=== PATIENT | female | born 1945 | race Caucasian/White ===

== ENCOUNTER → 2016-03-18 | Outpatient (CLI) | payer MEDICARE, OTHER | LOC: RAD 08:06 | PROVIDERS: ATTEND Specialist | DX: R19.01 Right upper quadrant abdominal swelling, mass and lump (principal) | CPT/HCPCS: 74250 ==

== ENCOUNTER 2016-05-30 00:45 | Emergency (ER) | payer MEDICARE, OTHER ==
--- NOTE | 2016-05-30 02:23 | ER Document Report ---
ED General - General Chief Complaint: Headache Stated Complaint: HEAD PAIN Notes: Patient is very pleasant 70 year old female who presents with complaint of a on sensation in her head. She says she got a warm and burning type sensation underneath her right forehead. She felt dizzy with it. She says she still has a slight sensation but is not is masses when it first started. She's never had this before. Patient is on blood thinners. She's not exactly sure why she is on blood thinners. Patient denies any trauma or injuries. Pain started around 11 PM. No vomiting. No fevers. No diarrhea. No focal weakness or numbness. No other complaints at this time. TRAVEL OUTSIDE OF THE [place] IN LAST 30 DAYS: No - Related Data Allergies/Adverse Reactions: No Known Allergies Allergy (Verified 01/20/16 08:24) Past Medical History - Social History Smoking Status: Never Smoker Frequency of alcohol use: None Drug Abuse: None Family History: Reviewed & Not Pertinent Patient has suicidal ideation: No Patient has homicidal ideation: No - Past Medical History Cardiac Medical History: Reports: Hx Hypertension - ON MEDS Denies: Hx Coronary Artery Disease, Hx Heart Attack Pulmonary Medical History: Denies: Hx Asthma, Hx Bronchitis, Hx COPD, Hx Pneumonia Neurological Medical History: Denies: Hx Cerebrovascular Accident, Hx Seizures Renal/ Medical History: Denies: Hx Peritoneal Dialysis GI Medical History: Reports: Hx Hepatitis - HEP B 74/REMISSION, Hx Hiatal Hernia. Denies: Hx Ulcer Musculoskeltal Medical History: Reports Hx Arthritis - RIGHT HAND AND RIGHT KNEE Infectious Medical History: Reports: Hx Hepatitis - HEP B 74/REMISSION Past Surgical History: Denies: Hx Hysterectomy, Hx Mastectomy, Hx Open Heart Surgery, Hx Pacemaker - Immunizations Hx Diphtheria, Pertussis, Tetanus Vaccination: Yes Hx Pneumococcal Vaccination: 11/20/14 Review of Systems - Review of Systems Notes: My Normal Review Basic REVIEW OF SYSTEMS: CONSTITUTIONAL : Denies fever, chills, or sweats. Denies recent illness. EENT: Denies eye, ear, throat, or mouth pain or symptoms. Denies nasal or sinus congestion. RESPIRATORY: Denies cough, cold, or chest congestion. Denies shortness of breath, difficulty breathing, or wheezing. GASTROINTESTINAL: Denies abdominal pain. Denies nausea, vomiting, or diarrhea. Denies constipation. Last BM: MUSCULOSKELETAL: Denies neck or back pain or joint pain or swelling. SKIN: Denies rash or skin lesions. NEUROLOGICAL: Denies altered mental status or loss of consciousness. Has a headache. Denies weakness or paralysis or loss of use of either side. Denies problems with gait or speech. Denies sensory or motor loss. ALL OTHER SYSTEMS REVIEWED AND NEGATIVE. Physical Exam - Vital signs Vitals: Temp Pulse Resp BP Pulse Ox 97.6 F 63 18 176/60 H 100 05/30/16 01:05 05/30/16 01:05 05/30/16 01:05 05/30/16 01:05 05/30/16 01:05 - Notes Notes: General Appearance: Well nourished, alert, cooperative, no acute distress, no obvious discomfort. Very well-appearing. Patient is actually very upbeat and laughing and happy on exam. Vitals: reviewed, See vital signs table. Head: no swelling or tenderness to the head Eyes: PERRL, EOMI, Conjuctiva clear Mouth: No decreasd moisture Neck: Supple, no neck tenderness, No thyromegaly Lungs: No wheezing, No rales, No rhonci, No accessory muscle use, good air exchange bilaterally. Heart: Normal rate, Regular rythm, No murmur, no rub Extremities: strength 5/5 in all extremities, good pulses in all extremities, no swelling or tenderness in the extremities, no edema. Skin: warm, dry, appropriate color, no rash Neuro: speech clear, oriented x 3, normal affect, responds appropriately to questions. Cranial nerves II through XII are intact. Distal sensation intact. Patient has normal gait. Normal Romberg testing. No focal neurologic deficits on exam. Course - Vital Signs Vital signs: Temp Pulse Resp BP Pulse Ox 97.6 F 63 18 176/60 H 100 05/30/16 01:05 05/30/16 01:05 05/30/16 01:05 05/30/16 01:05 05/30/16 01:05 - Transfer of Care Notes: 05/30/16 03:[address] scan makes the headache was atypical for the patient that it' s Kimon was a burning type sensation. It was not severe and pain. Her pain is actually are ready almost completely resolved. She has no neurologic deficits. CT scan was obtained within 4 hours of the onset of the headache. CT scan is negative. This no evidence of bleeding. She is fully neurologically intact and looks well and I feel safe to be discharged home. I encouraged him to return to ER she has recurrent worsening headaches or feels unwell. Patient and her agree with plan and she will be discharged home. Dictation of this chart was performed using voice recognition software; therefore, there may be some unintended grammatical errors. Discharge - Discharge Additional Instructions: HEADACHE: The physician does not feel that the headache you are experiencing has a serious underlying cause. Most headaches are due to emotional stress, with resultant muscle tension (tension headache). Occasionally, headaches are secondary to changes in the blood vessels of the scalp (vascular headache and migraine headache). Sometimes, a headache is the first symptom of another developing illness, such as a viral infection. You have no evidence of stroke, bleeding, meningitis, or other serious cause of your headache. The treatment of headaches varies with the severity and cause of the pain. Not all headaches need pain shots. In fact, there is evidence that using narcotics for headaches may make them worse in the long run. The physician will determine the therapy that's in your best interest. If you develop a fever, if the headache is different from any you've previously experienced, or if the headache progressively worsens, then call your physician at once or go to the emergency room. FOLLOW-UP CARE: If you have been referred to a physician for follow-up care, call the physician s office for an appointment as you were instructed or within the next two days. If you experience worsening or a significant change in your symptoms, notify the physician immediately or return to the Emergency Department at any time for re-evaluation. Please return to ER immediately if you have recurrent worsening headaches, any weakness or numbness, fevers, or feel unwell. Please follow-up with your doctor in 2-3 days for reevaluation. Referrals: LESLEY CASTANO MD [Primary Care Provider] - 06/01/16
[2016-05-30 03:19] VITALS: BP 143/62
== END 2016-05-30 03:19 | disposition home or self-care (01) ==
LOC: ER 00:45
DX: R51 Headache (principal); Z79.02 Long term (current) use of antithrombotics/antiplatelets; I10 Essential (primary) hypertension; Z86.19 Personal history of other infectious and parasitic diseases
CPT/HCPCS: 70450; 99284

== ENCOUNTER 2016-07-21 07:16 | Inpatient (IN) | payer MEDICARE, OTHER ==
--- NOTE | 2016-07-21 07:55 | ER Document Report ---
ED General - General Mode of Arrival: Wheelchair Information source: Relative - spouse TRAVEL OUTSIDE OF THE [place] IN LAST 30 DAYS: No - HPI Onset: This morning - Refer to HPI notes Associated symptoms: Other - confused Similar symptoms previously: No Recently seen / treated by doctor: No <ESTEFANIA BOWERS - Last Filed: 07/21/16 08:58> <FARHAT TERRY - Last Filed: 07/21/16 15:50> - General Chief Complaint: Altered Mental Status Stated Complaint: CONFUSION Time Seen by Provider: 07/21/16 07:42 Notes: Patient is a 71 year old female presenting to the emergency department with her for confusion and difficulty completing easy tasks. states the patient woke him up around 6:30 this morning and was very confused and not acting like herself. Patient had difficulty getting dressed, taking her medications, and getting into the car. states the patient was unable to figure out how to get her hand/arm inside the car when she was getting in. Patient was normal and at her baseline last night. After some difficulty the patient was able to give the time and date. Patient has trouble forming her sentences. Patient eventually is able to say she woke up around 6:00. Patient states she felt lost. Patient complains of some soreness to her head but denies any recent injury. Patient is not on blood thinners. Patient has a history of hypertension, hypercholesterolemia, and hypothyroidism. Patient takes medications for these as well as a baby ASA daily. Patient's PCP is Dr. Bolden. ( ESTEFANIA BOWERS) The patient is not a TPA candidate. She woke up with her symptoms. She has no motor deficits. She has only confusion and problems following directions. ( FARHAT TERRY) - Related Data Allergies/Adverse Reactions: No Known Allergies Allergy (Verified 01/20/16 08:24) Past Medical History - General Information source: Relative - spouse, [facility] Records - Social History Smoking Status: Never Smoker Cigarette use (# per day): No Chew tobacco use (# tins/day): No Smoking Education Provided: No Frequency of alcohol use: None Drug Abuse: None Family History: None Patient has suicidal ideation: No Patient has homicidal ideation: No - Past Medical History Cardiac Medical History: Reports: Hx Hypercholesterolemia, Hx Hypertension - ON MEDS GI Medical History: Reports: Hx Hepatitis - HEP B 74/REMISSION, Hx Hiatal Hernia Musculoskeltal Medical History: Reports Hx Arthritis - RIGHT HAND AND RIGHT KNEE Infectious Medical History: Reports: Hx Hepatitis - HEP B 74/REMISSION Past Surgical History: Reports: None - Immunizations Hx Diphtheria, Pertussis, Tetanus Vaccination: Yes Hx Pneumococcal Vaccination: 11/20/14 <ESTEFANIA BOWERS - Last Filed: 07/21/16 08:58> Review of Systems - Review of Systems Constitutional: No symptoms reported EENT: No symptoms reported Cardiovascular: No symptoms reported Respiratory: No symptoms reported Gastrointestinal: No symptoms reported Genitourinary: No symptoms reported Female Genitourinary: No symptoms reported Musculoskeletal: No symptoms reported Skin: No symptoms reported Hematologic/Lymphatic: No symptoms reported Neurological/Psychological: See HPI, Confusion, Speech impairment -: Yes All other systems reviewed and negative <ESTEFANIA BOWERS - Last Filed: 07/21/16 08:58> Physical Exam - Vital signs Interpretation: Normal <ESTEFANIA BOWERS - Last Filed: 07/21/16 08:58> <FARHAT TERRY - Last Filed: 07/21/16 15:50> - Vital signs Vitals: Temp Pulse Resp BP Pulse Ox 97.6 F 59 L 16 158/66 H 100 07/21/16 07:22 07/21/16 07:22 07/21/16 07:22 07/21/16 07:22 07/21/16 07:22 - Notes Notes: GENERAL: Alert, confused but pleasant, no acute distress. HEAD: Normocephalic and atraumatic. EYES: PERRL, Extraocular movements intact. ENT: Moist mucus membranes, tongue midline. NECK: Normal, supple, no carotid bruits. RESPIRATORY: Lungs are clear with positive air movement bilaterally, no wheezes , rhonchi, or rales. No respiratory distress. HEART: Regular rate and rhythm, no murmurs, gallops, or rubs. ABDOMINAL: Soft, non-tender, no guarding, rebound, or rigidity. BACK: Normal, non-tender. EXTREMITIES: Full range of motion to all extremities. No edema. NEUROLOGICAL: Alert, confused, oriented to time, patient has difficulty forming sentences and finding the right words to say, patient stumbles over her words as well. Patient was able to say the month and day after some difficulty. Patient also has difficulty following easy commands during the exam. Patient has inappropriate laughter consistent with frontal lobe release. PSYCHOLOGICAL: Confused. SKIN: Warm, dry. (ESTEFANIA BOWERS) Course - Laboratory Result Diagrams: 07/21/16 08:40 07/21/16 08:40 <ESTEFANIA BOWERS - Last Filed: 07/21/16 08:58> - Laboratory Result Diagrams: 07/21/16 08:40 07/21/16 08:40 - Diagnostic Test Radiology reviewed: Image reviewed, Reports reviewed - CT of the head shows stable white matter disease. MRI combo of the brain is unremarkable. - EKG Interpretation by Me EKG shows normal: Sinus rhythm, [place], Intervals, QRS Complexes, ST-T Waves Rate: Normal - 61 Rhythm: NSR Voltage: Consistant with LVH - Consults Dr. Wall Time consulted: 15:40 Consulted provider: will come to ER <FARHAT TERRY - Last Filed: 07/21/16 15:50> - Vital Signs Vital signs: Temp Pulse Resp BP Pulse Ox 97.6 F 65 22 H 143/72 H 100 07/21/16 07:22 07/21/16 13:20 07/21/16 14:12 07/21/16 14:12 07/21/16 14:12 - Laboratory Laboratory results interpreted by mt: 07/21/16 08:40 Chloride 109 H Discharge <ESTEFANIA BOWERS - Last Filed: 07/21/16 08:58> - Discharge Admitting Provider: Hospitalist Unit Admitted: Telemetry <FARHAT TERRY - Last Filed: 07/21/16 15:50> - Discharge Clinical Impression: Confusion and disorientation TIA (transient ischemic attack) Qualifiers: Transient cerebral ischemia type: unspecified Qualified Code(s): G45.9 - Transient cerebral ischemic attack, unspecified Condition: Stable Referrals: LESLEY CASTANO MD [Primary Care Provider] - Follow up as needed Scribe Attestation: 07/21/16 15:41 I personally performed the services described in the documentation, reviewed and edited the documentation which was dictated to the scribe in my presence, and it accurately records my words and actions. (FARHAT TERRY) Scribe Documentation - Scribe Written by Scribe:: Hiren Dubois, 07/21/16 8:26 acting as scribe for :: Georgina <ESTEFANIA BOWERS - Last Filed: 07/21/16 08:58>
[2016-07-21] MEDS ORDERED: ONDANSETRON HCL INJ/PF 4 MG/2 ML SDV ONE (08:35)
--- NOTE | 2016-07-21 08:39 | RADIOLOGY REPORT (SQ) ---
EXAM DESCRIPTION: CT HEAD WITHOUT COMPLETED DATE/TIME: 07/21/2016 8:22 am REASON FOR STUDY: acute confusion COMPARISON: CT brain 05/30/2016 TECHNIQUE: Axial images acquired through the brain without intravenous contrast. Images reviewed wi th bone, brain and subdural windows. Images stored on PACS. All CT scanners at this facility use dose modulation, iterative reconstruction, and/or weight based d osing when appropriate to reduce radiation dose to as low as reasonably achievable (ALARA). [facility]: Dose Right [facility]: CareDose [facility]: Dose Right [facility]: Teradose 4D [facility]: Crisp RADIATION DOSE: 64.61 mGy. LIMITATIONS: None. FINDINGS: VENTRICLES: Normal size and contour. CEREBRUM: No masses. No hemorrhage. No midline shift. Normal dee/white matter differentiation. N o evidence for acute infarction. Mild bifrontal and biparietal chronic small vessel ischemic change CEREBELLUM: No masses. No hemorrhage. No alteration of density. No evidence for acute infarction. EXTRAAXIAL SPACES: No fluid collections. No masses. ORBITS AND GLOBE: No intra- or extraconal masses. Normal contour of globe without masses. CALVARIUM: No fracture. PARANASAL SINUSES: No fluid or mucosal thickening. SOFT TISSUES: No mass or hematoma. OTHER: No other significant finding. IMPRESSION: No acute findings. White matter disease, stable. TECHNICAL DOCUMENTATION: JOB ID: [id number] Quality ID # [id number]: Final reports with documentation of one or more dose reduction techniques (e.g., Au tomated exposure control, adjustment of the mA and/or kV according to patient size, use of iterative reconstruction technique) 2010 [employer]- All Rights Reserved
[2016-07-21 08:52] LABS: ABSOLUTE EOSINOPHILS # (AUTO) 0.2 10^3/uL (0.0-0.6); ABSOLUTE LYMPHOCYTES (AUTO) 1.5 10^3/uL (0.5-4.7); ABSOLUTE MONOCYTES (AUTO) 0.3 10^3/uL (0.1-1.4); BASOPHILS % (AUTO) 0.6 % (0-2); EOSINOPHILS % (AUTO) 4.1 % (0-6); HEMATOCRIT 39.6 % (36.0-47.0); HEMOGLOBIN 13.1 g/dL (12.0-15.5); HGB HCT DIFFERENCE -0.3; LYMPHOCYTES % (AUTO) 24.6 % (13-45); MEAN CORPUSCULAR HEMOGLOBIN 28.5 pg (27.0-33.4); MEAN CORPUSCULAR HGB CONC 33.1 g/dL (32.0-36.0); MEAN CORPUSCULAR VOLUME 86 fl (80-97); MONOCYTES % (AUTO) 4.8 % (3-13); RED CELL DISTRIBUTION WIDTH 13.3 % (11.5-14.0); SEGMENTED NEUTROPHILS % (AUTO) 65.9 % (42-78); WHITE BLOOD COUNT 6.1 10^3/uL (4.0-10.5)
[2016-07-21 09:16] LABS: ALANINE AMINOTRANSFERASE 21 U/L (9-52); ALBUMIN 3.9 g/dL (3.5-5.0); ALKALINE PHOSPHATASE 76 U/L (38-126); ANION GAP 9 (5-19); ASPARTATE AMINO TRANSFERASE 22 U/L (14-36); BILIRUBIN,DIRECT 0.3 mg/dL (0.0-0.4); BILIRUBIN,TOTAL 0.7 mg/dL (0.2-1.3); BLOOD UREA NITROGEN 19 mg/dL (7-20); CARBON DIOXIDE 25 mmol/L (22-30); CHLORIDE 109 mmol/L (98-107); CREATINE KINASE 38 U/L (30-135); CREATININE RESULT 0.88 mg/dL (0.52-1.25); GLUCOSE 105 mg/dL (75-110); POTASSIUM 4.4 mmol/L (3.6-5.0); SODIUM 143.1 mmol/L (137-145); TOTAL PROTEIN 6.7 g/dL (6.3-8.2)
[2016-07-21 09:27] LABS: CREATINE KINASE MB 0.34 ng/mL (<4.55)
[2016-07-21 09:28] LABS: TROPONIN I < 0.012 ng/mL
--- NOTE | 2016-07-21 09:53 | EKG REPORT ---
SEVERITY:- BORDERLINE ECG - SINUS RHYTHM LVH BY VOLTAGE : Confirmed by: Lisbet Campos 21-Jul-2016 09:52:46
--- NOTE | 2016-07-21 09:55 | RADIOLOGY REPORT (SQ) ---
EXAM DESCRIPTION: CHEST SINGLE VIEW COMPLETED DATE/TIME: 07/21/2016 9:30 am REASON FOR STUDY: confusion COMPARISON: None. EXAM PARAMETERS: NUMBER OF VIEWS: One view. TECHNIQUE: Single frontal radiographic view of the chest acquired. RADIATION DOSE: NA LIMITATIONS: None. FINDINGS: LUNGS AND PLEURA: No opacities, masses or pneumothorax. No pleural effusion. MEDIASTINUM AND HILAR STRUCTURES: No masses. Contour normal. HEART AND VASCULAR STRUCTURES: Heart normal in size. Normal vasculature. BONES: No acute findings. HARDWARE: None in the chest. OTHER: No other significant finding. IMPRESSION: NO ACUTE RADIOGRAPHIC FINDING IN THE CHEST. TECHNICAL DOCUMENTATION: JOB ID: [id number]
[2016-07-21 09:56] LABS: AMORPHOUS SEDIMENT,URINE TRACE /HPF; APPEARANCE,URINE CLOUDY; BILIRUBIN,URINE NEGATIVE (NEGATIVE); GLUCOSE, URINE NEGATIVE (NEGATIVE); KETONES,URINE NEGATIVE (NEGATIVE); LEUKOCYTE ESTERASE,URINE NEGATIVE (NEGATIVE); NITRITE,URINE NEGATIVE (NEGATIVE); PROTEIN,URINE NEGATIVE (NEGATIVE); URINE SPECIFIC GRAVITY 1.014; UROBILINOGEN,URINE NEGATIVE mg/dL (<2.0)
[2016-07-21] MEDS ORDERED: LORAZEPAM INJ 2 MG/1 ML VIAL IV ONE (11:54)
--- NOTE | 2016-07-21 13:04 | RADIOLOGY REPORT (SQ) ---
EXAM DESCRIPTION: MRI HEAD COMBO COMPLETED DATE/TIME: 07/21/2016 12:53 pm REASON FOR STUDY: confusion COMPARISON: CT brain 07/21/2016 TECHNIQUE: Multiplanar imaging includes noncontrasted T1, T2, FLAIR, diffusion with ADC map and post gadolinium contrast T1 sequences. Images stored on PACS. CONTRAST TYPE AND DOSE: 15 mL Multihance. RENAL FUNCTION: GFR > 60. LIMITATIONS: Motion artifact on the axial and coronal postcontrast T1 weighted images FINDINGS: ANATOMY: No anomalies. Normal vascular flow voids. Pituitary fossa normal. CSF SPACES: Normal in size and contour. No hemorrhage. CEREBRUM: Sulci and gyri normal in size and contour. Spotty increased bifrontal and biparietal white matter signal on FLAIR imaging from chronic small vessel ischemic change. No evidence of hemorrhage, mass, or extraaxial fluid collection. No abnormal enhancement post contras t. POSTERIOR FOSSA: No signal alteration. No hemorrhage. No edema, masses, or mass effect. Internal luisito tory canals, cerebellopontine angles, mastoids normal. No enhancing lesions. No abnormal enhancement post contrast. DIFFUSION IMAGING: Negative for acute or subacute infarction. ORBITS: No masses. Globes normal. PARANASAL SINUSES: No fluid levels. Mucosa normal. OTHER: No other significant finding. IMPRESSION: No acute findings. Age-appropriate chronic small vessel white matter disease. TECHNICAL DOCUMENTATION: JOB ID: [id number]- All Rights Reserved
[2016-07-21] MEDS ORDERED: ASPIRIN 81 MG TABLET, CHEWABLE PO ONE (16:19)
[2016-07-21] MEDS ORDERED: ACETAMINOPHEN 325 MG TABLET PO PRN (16:20)
[2016-07-21] MEDS ORDERED: LABETALOL HCL INJ 20 MG/4 ML DISP.SYRIN IV PRN (16:20)
[2016-07-21] MEDS ORDERED: HYDRALAZINE HCL INJ/PF 20 MG/1 ML SDV IV PRN (16:42)
--- NOTE | 2016-07-21 16:43 | PDOC H&P ---
History of Present Illness Admission Date/PCP: LESLEY CASTANO MD Patient complains of: Weakness History of Present Illness: PETEY MATA is a 71 year old female with past medical history of hypertension, hypothyroidism, hypercholesterolemia presents with onset upon awakening this morning of confusion, speech difficulty, loss of coordination mainly in her right upper extremity. She is right-hand dominant. She states that she was taken off of her cholesterol medicine recently because her cholesterol was fine. She denies headache. Evaluation in the emergency department included a head CT which showed no acute process. An MRI of the brain which showed small vessel disease but no acute process. Past Medical History Cardiac Medical History: Reports: Hyperlipidema, Hypertension - ON MEDS Denies: Coronary Artery Disease, Myocardial Infarction Pulmonary Medical History: Denies: Asthma, Bronchitis, Chronic Obstructive Pulmonary Disease (COPD), Pneumonia Neurological Medical History: Denies: Seizures Endocrine Medical History: Reports: Hypothyroidism GI Medical History: Reports: Hepatitis - HEP B 74/REMISSION, Hiatal Hernia Musculoskeltal Medical History: Reports: Arthritis - RIGHT HAND AND RIGHT KNEE Hematology: Denies: Anemia, Sickle Cell Disease Infectious Medical History: Reports: Other - Patient states she had hepatitis 40 years ago Past Surgical History Past Surgical History: Reports: None Denies: Amputation, Hysterectomy, Mastectomy, Pacemaker Social History Information Source: Patient Lives with: Spouse/Significant other Smoking Status: Never Smoker Frequency of Alcohol Use: None Hx Recreational Drug Use: No Hx Prescription Drug Abuse: No - Advance Directive Resuscitation Status: Full Code Surrogate healthcare decision maker:: Family History Family History: denies: CVA Parental Family History Reviewed: Yes Children Family History Reviewed: Yes Sibling(s) Family History Reviewed.: Yes Medication/Allergy Home Medications: Aspirin [Aspirin EC] 1 tab PO DAILY 06/27/13 Atenolol [Tenormin 50 mg Tablet] 1 tab PO DAILY 06/27/13 Calcium Carbonate/Vitamin D3 [Caltrate 600 + D Tablet] 1 tab PO DAILY 06/27/13 Ferrous Sulfate [Iron] 1 tab PO DAILY 06/27/13 Levothyroxine Sodium [Synthroid] 137 mcg PO DAILY 06/27/13 Docusate Sodium [Stool Softener] 50 mg PO DAILY 01/05/16 Allergies/Adverse Reactions: No Known Allergies Allergy (Verified 01/20/16 08:24) Review of Systems Constitutional: ABSENT: chills, fever(s), headache(s), weight gain, weight loss Eyes: ABSENT: visual disturbances Ears: ABSENT: hearing changes Cardiovascular: ABSENT: chest pain, dyspnea on exertion, edema, orthropnea, palpitations Respiratory: ABSENT: cough, hemoptysis Gastrointestinal: ABSENT: abdominal pain, constipation, diarrhea, hematemesis, hematochezia, nausea, vomiting Genitourinary: ABSENT: dysuria, hematuria Musculoskeletal: ABSENT: joint swelling Integumentary: ABSENT: rash, wounds Neurological: PRESENT: abnormal speech, confusion, lack of coordination. ABSENT : abnormal gait, dizziness, focal weakness, syncope Psychiatric: ABSENT: anxiety, depression, homidical ideation, suicidal ideation Endocrine: ABSENT: cold intolerance, heat intolerance, polydipsia, polyuria Hematologic/Lymphatic: ABSENT: easy bleeding, easy bruising Physical Exam Vital Signs: Temp Pulse Resp BP Pulse Ox 97.6 F 65 22 H 143/72 H 100 07/21/16 07:22 07/21/16 13:20 07/21/16 14:12 07/21/16 14:12 07/21/16 14:12 Intake & Output 07/20/16 07/21/16 07/22/16 06:59 06:59 06:59 Weight 84.3 kg PHYSICAL EXAM: GENERAL: Appears well, no acute distress HEENT: Normocephalic, no scleral icterus, conjunctiva clear, EOEM intact, PERRLA , moist mucous membranes NECK: trachea midline, no thyromegally RESPIRATORY: Clear to auscultation, no wheezes/rhonchi CARDIAC: Regular rate and rhythm, no murmur/jorge/rub ABDOMEN: Soft, no distension, no tenderness, no guarding, normal bowel sounds, negative Tian sign RECTAL: deferred : deferred EXTREMITIES: No edema, cyanosis, clubbing MUSCULOSKELETAL: No joint swelling or deformity VASCULAR: normal peripheral pulses NEUROLOGIC: Alert, oriented to person/place/time, mild expressive aphasia, cranial nerves grossly intact, 5/5 strength in all extremities, tactile sensation intact in all extremities, dysmetria noted in both upper extremities SKIN: No rash, no wounds, no worrisome skin lesions PSYCHIATRIC: Normal mood, normal affect Results Laboratory Results: 07/21/16 08:40 07/21/16 08:40 07/21/16 07/21/16 07/21/16 08:40 08:40 09:20 WBC 6.1 RBC 4.60 Hgb 13.1 Hct 39.6 MCV 86 MCH 28.5 MCHC 33.1 RDW 13.3 Plt Count 182 Seg Neutrophils % 65.9 Lymphocytes % 24.6 Monocytes % 4.8 Eosinophils % 4.1 Basophils % 0.6 Absolute Neutrophils 4.0 Absolute Lymphocytes 1.5 Absolute Monocytes 0.3 Absolute Eosinophils 0.2 Absolute Basophils 0.0 Sodium 143.1 Potassium 4.4 Chloride 109 H Carbon Dioxide 25 Anion Gap 9 BUN 19 Creatinine 0.88 Est GFR ( Amer) > 60 Est GFR (Non-Af Amer) > 60 Glucose 105 Calcium 10.0 Total Bilirubin 0.7 AST 22 ALT 21 Alkaline Phosphatase 76 Total Protein 6.7 Albumin 3.9 Urine Color YELLOW Urine Appearance CLOUDY Urine pH 7.0 Ur Specific [place] 1.014 Urine Protein NEGATIVE Urine Glucose (UA) NEGATIVE Urine Ketones NEGATIVE Urine Blood NEGATIVE Urine Nitrite NEGATIVE Ur Leukocyte Esterase NEGATIVE Urine WBC (Auto) 1 Urine RBC (Auto) 1 07/21/16 07/21/16 08:40 08:40 Creatine Kinase 38 CK-MB (CK-2) 0.34 Troponin I < 0.012 Impressions: Head CT 07/21/16 07:56 IMPRESSION: No acute findings. White matter disease, stable. Chest X-Ray 07/21/16 08:56 IMPRESSION: NO ACUTE RADIOGRAPHIC FINDING IN THE CHEST. Head MRI 07/21/16 08:56 IMPRESSION: No acute findings. Age-appropriate chronic small vessel white matter disease. Assessment & Plan - Diagnosis (1) TIA (transient ischemic attack) Qualifiers: Transient cerebral ischemia type: unspecified Qualified Code(s): G45.9 - Transient cerebral ischemic attack, unspecified Is this a current diagnosis for this admission?: YesPlan: Patient symptoms concerning for posterior circulation event. Increase aspirin from 81-325 mg. Check lipid panel. Place patient on telemetry monitoring to rule out dysrhythmia. Consider outpatient event monitor. Check CTA of head and neck. Physical/occupational therapy evaluation. DVT prophylaxis. (2) Hypertension Is this a current diagnosis for this admission?: YesPlan: Continue atenolol 50 mg daily. As needed IV hydralazine. (3) Hypothyroid Is this a current diagnosis for this admission?: YesPlan: Synthroid. Check TSH. (4) Hypercholesterolemia Is this a current diagnosis for this admission?: YesPlan: Patient was taken off statin as an outpatient. Repeat lipid panel. Restart statin therapy if indicated. - Time Time Spent: 50 to 70 Minutes Anticipated discharge: Home Within: within 48 hours
--- NOTE | 2016-07-21 17:40 | RADIOLOGY REPORT (SQ) ---
EXAM DESCRIPTION: CTA HEAD COMPLETED DATE/TIME: 07/21/2016 5:04 pm REASON FOR STUDY: tia COMPARISON: None. TECHNIQUE: Post IV contrast scanning, thin section axial imaging through the brain to evaluate the a rterial structures. Source and MIP images are saved and reviewed on PACS. Advanced 3D imaging as volume-rendering, MIPs, SSD performed? yes All CT scanners at this facility use dose modulation, iterative reconstruction, and/or weight based d osing when appropriate to reduce radiation dose to as low as reasonably achievable (ALARA). [facility]: Dose Right [facility]: CareDose [facility]: Dose Right [facility]: Teradose 4D [facility]: [employer] CONTRAST TYPE AND DOSE: 75 mL Isovue 370 RENAL FUNCTION: Creatinine 0.88 LIMITATIONS: None. FINDINGS: [place]: The anterior, middle, posterior cerebral arteries are all patent. No ev idence of aneurysm or focal stenosis. POSTERIOR CIRCULATION: The distal vertebral arteries are patent as is the basilar artery. No aneurysm . BRAIN: No gross enhancing lesions as visualized. The superior cerebral hemispheres are not included in the field of view. BONES: Intact as visualized. SINUSES: No fluid or mucosal thickening. OTHER: No other significant finding. IMPRESSION: NO CTA EVIDENCE OF STENOSIS OR ANEURYSM OF THE [place]. TECHNICAL DOCUMENTATION: JOB ID: [id number] Quality ID # 436: Final reports with documentation of one or more dose reduction techniques (e.g., Au tomated exposure control, adjustment of the mA and/or kV according to patient size, use of iterative reconstruction technique) 2010 [employer]- All Rights Reserved
--- NOTE | 2016-07-21 17:43 | RADIOLOGY REPORT (SQ) ---
EXAM DESCRIPTION: CTA NECK COMPLETED DATE/TIME: 07/21/2016 5:05 pm REASON FOR STUDY: tia COMPARISON: None. TECHNIQUE: Axial dynamic scanning technique with dynamic contrast enhancement through the extra-craft artist nial carotid and vertebral arteries. Multiplanar reconstruction. 3-D MIPS and Volume-rendered imag es acquired at the workstation and saved to PACS. Images are reviewed in soft tissue, bone, lung w indows. All CT scanners at this facility use dose modulation, iterative reconstruction, and/or weight based d osing when appropriate to reduce radiation dose to as low as reasonably achievable (ALARA). [facility]: Dose Right [facility]: CareDose [facility]: Dose Right [facility]: Teradose 4D [facility]: [email or web address] CONTRAST TYPE AND DOSE: 75 mL Isovue 370 RENAL FUNCTION: Creatinine 0.88 LIMITATIONS: None. FINDINGS: AORT[place] ARCH: Normal three-vessel origin. Bilateral subclavian arteries are patent. No d issection. RIGHT CAROTIDS: Patent common, internal and external carotid arteries without suggestion of significa nt stenosis or irregular plaque. No dissection. RIGHT VERTEBRAL: Patent. No dissection. LEFT CAROTIDS: Patent common, internal and external carotid arteries without suggestion of significan t stenosis or irregular plaque. No dissection. LEFT VERTEBRAL: Patent. No dissection. OTHER: No other significant finding. OTHER: 3-D reconstructions confirm findings. IMPRESSION: NORMAL CTA OF THE EXTRA-CRANIAL CAROTID AND VERTEBRAL ARTERIES. COMMENT: Quality ID #[id number]: Measurements of distal internal carotid diameter were used as the denomina tor for stenosis measurement. TECHNICAL DOCUMENTATION: JOB ID: [id number] Quality ID # 436: Final reports with documentation of one or more dose reduction techniques (e.g., Au tomated exposure control, adjustment of the mA and/or kV according to patient size, use of iterative reconstruction technique) 2010 [employer]- All Rights Reserved
[2016-07-21 18:19] LABS: CHOLESTEROL 169.76 mg/dL (0-200); DIRECT LDL 78 mg/dL (<100); Direct HDL 64 mg/dL (>40); TRIGLYCERIDES 92 mg/dL (<150)
[2016-07-22] MEDS ORDERED: ONDANSETRON HCL INJ/PF 4 MG/2 ML SDV IV ONE (03:15)
[2016-07-22] MEDS ORDERED: ONDANSETRON HCL INJ/PF 4 MG/2 ML SDV ONE (03:21)
--- NOTE | 2016-07-22 04:11 | RADIOLOGY REPORT (SQ) ---
EXAM DESCRIPTION: CT HEAD WITHOUT COMPLETED DATE/TIME: 07/22/2016 3:48 am REASON FOR STUDY: headache R51 HEADACHE COMPARISON: CT head 07/21/2016. TECHNIQUE: Axial images acquired through the brain without intravenous contrast. Images reviewed wi th bone, brain and subdural windows. Images stored on PACS. All CT scanners at this facility use dose modulation, iterative reconstruction, and/or weight based d osing when appropriate to reduce radiation dose to as low as reasonably achievable (ALARA). [facility]: Dose Right [facility]: CareDose [facility]: Dose Right [facility]: Teradose 4D [facility]: [employer] RADIATION DOSE: 110.44 mGy. LIMITATIONS: Motion artifact. FINDINGS: VENTRICLES: No hydrocephalus. Acute hemorrhage in the atrium of the left lateral ventricl e. CEREBRUM: Large area of intraparenchymal hemorrhage in the left parietal, occipital and temporal lobe s measuring approximately 9.6 x 3.3 cm. There is adjacent mass effect and edema in the brain parench yma. No midline shift. Elsewhere in the brain the dee-white matter differentiation is preserved. CEREBELLUM: No hemorrhage. No alteration of density. No evidence for acute infarction. EXTRAAXIAL SPACES: No fluid collections. ORBITS AND GLOBE: Symmetrical contour of the globes. CALVARIUM: No depressed fracture. PARANASAL SINUSES: No air-fluid level. SOFT TISSUES: No hematoma. IMPRESSION: Interval development of acute large intraparenchymal hemorrhage in the left parietal, oc cipital and temporal lobes with adjacent mass effect and edema in the brain parenchyma, and intravent ricular extension of the hemorrhage into the left lateral ventricle. COMMENT: Pertinent findings on the imaging study reported as a CRITICAL RESULT to CATRACHITA LYNCH MD at03:53 hrs on 07/22/2016. Category of Critical Result: Acute intracranial hemorrhage. TECHNICAL DOCUMENTATION: JOB ID: [id number] Quality ID # [id number]: Final reports with documentation of one or more dose reduction techniques (e.g., Au tomated exposure control, adjustment of the mA and/or kV according to patient size, use of iterative reconstruction technique) 2010 [employer]- All Rights Reserved
[2016-07-22] MEDS ORDERED: PROPOFOL 100 ML IV ONE ×2 (04:39→06:13)
[2016-07-22] MEDS ORDERED: PROPOFOL INJ 200 MG/20 ML VIAL IV ONE (04:57)
--- NOTE | 2016-07-22 05:19 | PDOC TRANSFER SUMMARY ---
General Admission Date/PCP: 07/21/16 16:20 LESLEY CASTANO MD Resuscitation Status: Full Code - Transfer Diagnosis (1) Acute respiratory failure Is this a current diagnosis for this admission?: YesDiagnosis Summary: Patient intubated for airway control by BULK PIGMENT REDUCER without difficulty. No evidence of aspiration.. (2) Intracerebral hemorrhage Is this a current diagnosis for this admission?: YesDiagnosis Summary: Patient has had basically unremarkable hospital course so far, other than minor neurologic deficits. Please refer to transcribed history and physical. Please also refer to transcribed radiology reports. Basically an unremarkable workup so far for suspected TIA. According to her floor nurse, approximately 1:30 AM the morning of the second, patient began complaining of a headache. Was given Tylenol and then reportedly slept peacefully for a while. Shortly after 3 AM, she awoke with a severe headache. Stat CT scan of the brain without contrast revealed a 9.6 x 3.3 cm area of intraparenchymal hemorrhage in the left parietal, occipital, and temporal lobes. Adjacent mass- effect and edema in the brain parenchyma. No midline shift. Intraventricular extension of the hemorrhage into the left lateral ventricle. Films have been reviewed and report was discussed with the interpreting radiologist. Immediately after report was discussed with radiologist, rapid response was called and I went immediately to the patient's floor room. Patient was confused and not following commands. She was transported down to the intensive care unit. Decision was made to proceed with endotracheal intubation for airway control. This was accomplished without difficulty by BULK PIGMENT REDUCER. Just prior to intubation, Eunice Coma Scale of 11, with eyes 3, verbal 4, motor 4. NIH score of 8, with a qualitative no. Patient appeared to be moving all her extremities grossly normally, but was not following commands. Minimal right facial droop. Blood pressure 138/64. Pulse 64 and regular. Temperature 36.9. 100% saturation on room air. Accu-Chek of 87. At 4:45 AM this morning patient was discussed by phone with Dr. Rizo, on-call neurosurgeon at [facility]. Patient was discussed in detail. He feels patient should be admitted to the medical ICU at [facility], and he will see the patient in consultation. He agrees with treatment so far. Recommendation is for systolic pressure under 140. He feels patient overall has a poor prognosis. Per nursing staff, patient has been assigned a room at [facility], and we are awaiting arrival of air transport. Accepting physician Dr. Mcqueen, jukebox operator. Immediately after my telephone conversation with the above neurosurgeon, I had a jose eduardo discussion with in our intensive care unit rajani. He had been notified prior to patient being transported to the intensive care unit that patient had taken a turn for the worse, had a very worrisome CT scan, and was to be intubated. He agreed with those plans. also agrees with plans for transport to [facility]. Again , I discussed with him in layperson's terms that neurosurgeon feels has poor prognosis. He is grateful for the care and attention at our facility. She remains stable for transport. 90 minutes critical care time spent in evaluation and management of patient, including direct patient evaluation, multiple discussions with nursing staff, entering of multiple orders into the electronic health record, multiple discussions and film review with on-call radiologist, including post-intubation chest Xrays, discussions with transport center at [facility], discussion with on-call neurosurgeon at [facility], and in person discussion with patient's . (3) TIA (transient ischemic attack) Is this a current diagnosis for this admission?: Yes (4) Hypertension Is this a current diagnosis for this admission?: Yes (5) Hypothyroid Is this a current diagnosis for this admission?: Yes (6) Hypercholesterolemia Is this a current diagnosis for this admission?: Yes - Transfer Medications Home Medications: Aspirin [Aspirin EC] 1 tab PO DAILY 06/27/13 Atenolol [Tenormin 50 mg Tablet] 1 tab PO DAILY 06/27/13 Calcium Carbonate/Vitamin D3 [Caltrate 600 + D Tablet] 1 tab PO DAILY 06/27/13 Ferrous Sulfate [Iron] 1 tab PO DAILY 06/27/13 Levothyroxine Sodium [Synthroid] 137 mcg PO DAILY 06/27/13 Docusate Sodium [Colace 100 mg Capsule] 100 mg PO DAILY 07/21/16 Transfer Medications: Current Medications Acetaminophen (Tylenol 325 Mg Tablet) 650 mg PO Q4HP PRN PRN Reason: FOR PAIN OR TEMP Stop: 08/20/16 16:19 Last Admin: 07/22/16 01:27 Dose: 650 mg Aspirin (Ecotrin 325 Mg Ec Tablet) 325 mg PO DAILY KALI Stop: 08/21/16 09:59 Atenolol (Tenormin 50 Mg Tablet) 50 mg PO DAILY KALI Stop: 08/21/16 09:59 Calcium Carbonate (Os-Abad 250 Mg With Vitamin D 125 Units) 2 tab PO DAILY KALI Stop: 08/21/16 09:59 Enoxaparin Sodium (Lovenox Inj 40 Mg/0.4 Ml Disp.Syrin) 40 mg SUBCUT QAM KALI Stop: 08/21/16 07:59 Ferrous Sulfate (Feosol 325 Mg Tablet) 325 mg PO DAILY KALI Stop: 08/21/16 09:59 Hydralazine HCl (Apresoline Inj/Pf 20 Mg/1 Ml Sdv) 10 mg IV Q6HP PRN Stop: 08/20/16 16:41 Levothyroxine Sodium (Synthroid 0.112 Mg Tablet) 0.112 mg PO DAILY KLAI Stop: 08/21/16 09:59 Levothyroxine Sodium (Synthroid 0.025 Mg Tablet) 0.025 mg PO DAILY KALI Stop: 08/21/16 09:59 Patient Own Medication (Docusate Sodium [Stool Softener]) 50 mg PO DAILY KALI Stop: 08/21/16 09:59 Sodium Chloride (Saline Flush 2.5 Ml Monoject Prefil Syrin) 2.5 ml IV Q8 KALI Stop: 08/20/16 21:59 Last Admin: 07/21/16 22:18 Dose: 2.5 ml - Allergies Allergies/Adverse Reactions: No Known Allergies Allergy (Verified 01/20/16 08:24) Physical Exam Vital Signs: Temp Pulse Resp BP Pulse Ox 97.7 F 67 23 H 107/66 100 07/22/16 03:05 07/22/16 03:05 07/22/16 04:18 07/22/16 04:18 07/22/16 04:18 Intake & Output 07/21/16 07/22/16 07/23/16 00:59 00:59 00:59 Output Total 600 Balance -600 Weight 84.2 kg Results Laboratory Results: 07/21/16 07/21/16 07/21/16 16:25 16:25 18:17 Magnesium Cancelled 2.1 Triglycerides 92 Cholesterol 169.76 LDL Cholesterol Direct 78 VLDL Cholesterol 18.0 HDL Cholesterol 64 Vitamin B12 320.0 TSH 0.38 L Impressions: Head CTA 07/21/16 00:00 IMPRESSION: NO CTA EVIDENCE OF STENOSIS OR ANEURYSM OF THE [place]. Neck CTA 07/21/16 00:00 IMPRESSION: NORMAL CTA OF THE EXTRA-CRANIAL CAROTID AND VERTEBRAL ARTERIES. Chest X-Ray 07/21/16 08:56 IMPRESSION: NO ACUTE RADIOGRAPHIC FINDING IN THE CHEST. Head MRI 07/21/16 08:56 IMPRESSION: No acute findings. Age-appropriate chronic small vessel white matter disease. Head CT 07/22/16 00:00 IMPRESSION: Interval development of acute large intraparenchymal hemorrhage in the left parietal, occipital and temporal lobes with adjacent mass effect and edema in the brain parenchyma, and intraventricular extension of the hemorrhage into the left lateral ventricle.
--- NOTE | 2016-07-22 05:35 | RADIOLOGY REPORT (SQ) ---
EXAM DESCRIPTION: CHEST SINGLE VIEW COMPLETED DATE/TIME: 07/22/2016 5:20 am REASON FOR STUDY: INTUBATION COMPARISON: Chest x-ray 07/21/2016 EXAM PARAMETERS: NUMBER OF VIEWS: One view TECHNIQUE: Single frontal radiograph of the chest. RADIATION DOSE: N/A LIMITATIONS: None. FINDINGS: TEMPORARY SUPPORT DEVICES:The endotracheal tube has the tip approximately 1.8 cm above the beck. NG tube courses below the left josy-diaphragm in to the stomach. LUNGS AND PLEURA: No consolidation, pleural effusion or pneumothorax. MEDIASTINUM AND HILAR STRUCTURES: No masses. Contour normal. HEART AND VASCULAR STRUCTURES: Heart size normal. No overt vascular congestion. BONES: No acute findings. IMPRESSION: No acute radiographic finding in the chest. Low lying endotracheal tube, retraction by 1-2 cm recommended. RECOMMENDATIONS: Retraction of the endotracheal tube. TECHNICAL DOCUMENTATION: JOB ID: [id number] 2010 [employer]- All Rights Reserved
[2016-07-22 05:44] LABS: ABSOLUTE LYMPHOCYTES (AUTO) 1.4 10^3/uL (0.5-4.7); ABSOLUTE MONOCYTES (AUTO) 0.4 10^3/uL (0.1-1.4); ABSOLUTE NEUT (AUTO) 6.7 10^3/uL (1.7-8.2); BASOPHILS % (AUTO) 0.4 % (0-2); EOSINOPHILS % (AUTO) 0.5 % (0-6); HEMATOCRIT 36.6 % (36.0-47.0); HEMOGLOBIN 12.3 g/dL (12.0-15.5); HGB HCT DIFFERENCE 0.3; LYMPHOCYTES % (AUTO) 15.9 % (13-45); MEAN CORPUSCULAR HGB CONC 33.6 g/dL (32.0-36.0); MEAN CORPUSCULAR VOLUME 86 fl (80-97); MONOCYTES % (AUTO) 4.5 % (3-13); RED BLOOD COUNT 4.25 10^6/uL (3.72-5.28); RED CELL DISTRIBUTION WIDTH 13.1 % (11.5-14.0); SEGMENTED NEUTROPHILS % (AUTO) 78.7 % (42-78); WHITE BLOOD COUNT 8.5 10^3/uL (4.0-10.5)
[2016-07-22 05:47] LABS: ANION GAP 10 (5-19); BLOOD UREA NITROGEN 15 mg/dL (7-20); CALCIUM 9.7 mg/dL (8.4-10.2); CARBON DIOXIDE 22 mmol/L (22-30); CHLORIDE 109 mmol/L (98-107); CREATININE RESULT 0.82 mg/dL (0.52-1.25); GLUCOSE 115 mg/dL (75-110); POTASSIUM 4.2 mmol/L (3.6-5.0); SODIUM 140.9 mmol/L (137-145)
[2016-07-22 05:50] LABS: PARTIAL THROMBOPLASTIN TIME 29.7 SEC (23.5-35.8); PROTHROMBIN TIME 13.8 SEC (11.4-15.4)
[2016-07-22 06:18] LABS: ARTERIAL BLOOD BASE EXCESS -3.6 mmol/L; ARTERIAL BLOOD O2 SATURATION 94.4 % (94-98)
--- NOTE | 2016-07-22 06:33 | RADIOLOGY REPORT (SQ) ---
EXAM DESCRIPTION: CHEST SINGLE VIEW COMPLETED DATE/TIME: 07/22/2016 6:21 am REASON FOR STUDY: intubated COMPARISON: Chest x-ray 07/22/2016 at 05:10 hours EXAM PARAMETERS: NUMBER OF VIEWS: One view TECHNIQUE: Single frontal portable supine radiograph of the chest on 07/22/2016 at 06:04 hours. RADIATION DOSE: N/A LIMITATIONS: None. FINDINGS: TEMPORARY SUPPORT DEVICES:The endotracheal tube has the tip approximately 3 cm above the c obed. NG tube courses below the left josy-diaphragm in to the stomach. LUNGS AND PLEURA: No consolidation, pleural effusion or pneumothorax. MEDIASTINUM AND HILAR STRUCTURES: No masses. Contour normal. HEART AND VASCULAR STRUCTURES: Heart size normal. No evidence for failure. BONES: No acute findings. IMPRESSION: No acute radiographic finding in the chest. Support devices in expected locations. TECHNICAL DOCUMENTATION: JOB ID: [id number] 2010 [employer]- All Rights Reserved
[2016-07-22 06:57] VITALS: BP 120/52
[2016-07-22] MEDS ORDERED: PROPOFOL 100 ML IV PRN (07:14)
[2016-07-22] MEDS ORDERED: ENOXAPARIN SODIUM INJ 40 MG/0.4 ML DISP.SYRIN SUBCUT SCH (08:00)
[2016-07-22] MEDS ORDERED: ASPIRIN 325 MG TABLET, ENT COATED PO SCH (10:00)
[2016-07-22] MEDS ORDERED: (PENDING PHARMACY ID) (Levothyroxine Sodium [Synthroid] 137 MCG) PO SCH (10:00)
[2016-07-22] MEDS ORDERED: CALCIUM CARBONATE 250 MG/VITAMIN D3 125 UNIT TABLET PO SCH ×2 (10:00)
[2016-07-22] MEDS ORDERED: FERROUS SULFATE 325 MG TABLET PO SCH (10:00)
[2016-07-22] MEDS ORDERED: (PENDING PHARMACY ID) (Calcium Carbonate/Vitamin D3 [Caltrate 600 Plus D3 Tablet] 1 TAB) PO SCH (10:00)
[2016-07-22] MEDS ORDERED: LEVOTHYROXINE SODIUM 0.112 MG TABLET PO SCH (10:00)
[2016-07-22] MEDS ORDERED: ATENOLOL 50 MG TABLET PO SCH (10:00)
[2016-07-22] MEDS ORDERED: LEVOTHYROXINE SODIUM 0.025 MG TABLET PO SCH (10:00)
[2016-07-22] MEDS ORDERED: DOCUSATE SODIUM 50 MG PO SCH (10:00)
[2016-07-22] MEDS ORDERED: SUCCINYLCHOLINE CHLORIDE INJ 200 MG/10 ML VIAL ONE (13:25)
== END 2016-07-22 06:28 | disposition short-term general hospital (02) | DRG 64 ==
LOC: ER 07:16 → OBSVTOIN 16:20 → INTOOBSV 16:20 → EH 16:20 → UNDOADMIN 16:34 → 3N 19:47 → ICU 07-22 04:08
PROC: 5A1935Z Respiratory Ventilation, Less than 24 Consecutive Hours (ICD-10-PCS; principal; 2016-07-22)
PROC: 0BH17EZ Insertion of Endotracheal Airway into Trachea, Via Natural or Artificial Opening (ICD-10-PCS; 2016-07-22)
DX: I61.1 Nontraumatic intracerebral hemorrhage in hemisphere, cortical (principal); J96.01 Acute respiratory failure with hypoxia; B19.10 Unspecified viral hepatitis B without hepatic coma; R47.01 Aphasia; R40.2423 Glasgow coma scale score 9-12, at hospital admission; I10 Essential (primary) hypertension; E03.9 Hypothyroidism, unspecified; E78.00 Pure hypercholesterolemia, unspecified; E78.5 Hyperlipidemia, unspecified; M19.041 Primary osteoarthritis, right hand; M17.11 Unilateral primary osteoarthritis, right knee; Z79.82 Long term (current) use of aspirin; Z79.899 Other long term (current) drug therapy
CPT/HCPCS: 31500; 36415; 70450; 70496; 70498; 70553; 71010; 80048; 80053; 80061; 81001; 82550; 82553; 82607; 82803; 82962; 83735; 84443; 84484; 85025; 85610; 85730; 93005; 93010; 94002; 96374; 96375; 99285; A9577; G0378; J0330; J2060; J2405; J2704; J3490

== ENCOUNTER 2016-08-19 23:06 | Emergency (ER) | payer MEDICARE, OTHER ==
[2016-08-19] MEDS ORDERED: NORMAL SALINE 1000 ML 1,000 ML IV ONE (23:53)
--- NOTE | 2016-08-19 23:56 | ER Document Report ---
ED General - General Chief Complaint: Syncope Stated Complaint: WEAKNESS/NAUSEA/VOMITING Time Seen by Provider: 08/19/16 23:40 Cannot obtain history due to: Mentally challenged Notes: Patient is a 71-year-old female who presents with an episode of syncope and multiple episodes of vomiting. Patient was just discharged from [facility] rehab after having a left-sided temporal parietal intracranial hemorrhage. History is limited secondary to patient's expressive aphasia and dysarthria but her states that tonight they were walking back to the bedroom and patient apparently became increasingly weak in the knees, stopped talking to him and he gently set her on the bed. He states that it appeared as though the patient lost consciousness and became completely unresponsive for 10-15 minutes. After this episode she had 2 episodes of nonbilious vomiting but was awake, talking and at her normal. He did not witness any tonic-clonic activity. The only been home several hours after being discharged from [facility]. Patient at time of assessment denies any significant headache although apparently complained of a mild headache earlier. She denies any chest pain or shortness of breath. History is otherwise limited. TRAVEL OUTSIDE OF THE [place] IN LAST 30 DAYS: No - Related Data Allergies/Adverse Reactions: No Known Allergies Allergy (Verified 01/20/16 08:24) Past Medical History - General Information source: Patient, Relative - Social History Smoking Status: Never Smoker Frequency of alcohol use: None Drug Abuse: None Lives with: Spouse/Significant other Family History: Reviewed & Not Pertinent. denies: CVA - Past Medical History Cardiac Medical History: Reports: Hx Hypercholesterolemia, Hx Hypertension - ON MEDS Denies: Hx Coronary Artery Disease, Hx Heart Attack Pulmonary Medical History: Denies: Hx Asthma, Hx Bronchitis, Hx COPD, Hx Pneumonia Neurological Medical History: Denies: Hx Cerebrovascular Accident, Hx Seizures Endocrine Medical History: Reports: Hx Hypothyroidism Renal/ Medical History: Denies: Hx Peritoneal Dialysis GI Medical History: Reports: Hx Hepatitis - HEP B 74/REMISSION, Hx Hiatal Hernia. Denies: Hx Ulcer Musculoskeltal Medical History: Reports Hx Arthritis - RIGHT HAND AND RIGHT KNEE Infectious Medical History: Reports: Hx Hepatitis - HEP B 74/REMISSION Past Surgical History: Denies: Hx Hysterectomy, Hx Mastectomy, Hx Open Heart Surgery, Hx Pacemaker - Immunizations Hx Diphtheria, Pertussis, Tetanus Vaccination: Yes Hx Pneumococcal Vaccination: 11/20/14 Review of Systems - Review of Systems Notes: Constitutional: Negative for fever. HENT: Negative for sore throat. Eyes: Negative for visual changes. Cardiovascular: Negative for chest pain. Positive for syncope Respiratory: Negative for shortness of breath. Gastrointestinal: Negative for abdominal pain, vomiting or diarrhea. Genitourinary: Negative for dysuria. Musculoskeletal: Negative for back pain. Skin: Negative for rash. Neurological: Negative for headaches, weakness or numbness. 10 point ROS negative except as marked above and in HPI. Physical Exam - Vital signs Vitals: Temp Resp BP Pulse Ox 98.0 F 20 114/53 L 98 08/19/16 23:32 08/19/16 23:32 08/19/16 23:32 08/19/16 23:32 Interpretation: Normal Notes: PHYSICAL EXAMINATION: GENERAL: Appears somewhat lethargic but wakes easily HEAD: Atraumatic, normocephalic. EYES: Pupils equal round and reactive to light, extraocular movements intact, sclera anicteric, conjunctiva are normal. ENT: nares patent, oropharynx clear without exudates. Moderately dry mucous membranes. NECK: Normal range of motion, supple without lymphadenopathy LUNGS: Breath sounds clear to auscultation bilaterally and equal. No wheezes rales or rhonchi. HEART: Regular rate and rhythm without murmurs ABDOMEN: Soft, nontender, normoactive bowel sounds. No guarding, no rebound. No masses appreciated. EXTREMITIES: no pitting or edema. No cyanosis. NEUROLOGICAL: No focal neurological deficits. Moderate expressive aphasia. Slight dysarthria. Strength is 5 out of 5 in the bilateral upper and lower extremities both distally and proximally PSYCH: Oriented to person and place but not month. SKIN: Warm, Dry, normal turgor, no rashes or lesions noted. Course - Re-evaluation Re-evalutation: 08/19/16 23:55 Presentation of syncope of unclear etiology. Patient normotensive, alert, without focal neurologic deficits at time of arrival. Denies syncope was during exertion. No preceding symptoms of palpitations, chest pain, or shortness of breath. 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 Patient is at her baseline per at time of arrival. EKG is without evidence of HCOM, right heart strain , ST changes to suggest ischemia, prolong QTc, delta wave, epsilon wave, or Brugada syndrome. Patient denies any symptoms to suggest an acute PE, GA, TAD, SAH, seizure, or acute GI bleed as the etiology of their syncope today. However , given recent intracranial hemorrhage will obtain a repeat CT scan to exclude an acute bleed at the etiology for today's episode of syncope. Will also obtain basic laboratories. These are unremarkable likely plan for discharge home 08/20/16 01:56 The radiologist contacted me and stated that he is concerned that there may be an acute hemorrhagic component to the CT scan relative to the CT from the second of this month. I contacted [facility] and spoke with the neurologist sanitation technician who stated that my radiologist need to speak to the radiologist at [facility] to better clarify whether or not this is an acute bleed. This conversation is ongoing at this time. The remainder patient's laboratories are unremarkable. She remains clinically unchanged from before, overall well in appearance and in no acute distress. She remains without any new neurologic deficit. 08/20/16 03:19 Dr. Sims our radiologist has spoken at length with the radiologist Dr. Parkinson at [facility] who reports that the CT scan today actually appears much improved from 07/31. Patient remained at her baseline. There is no indication for transfer at this time given that the CT today is unchanged actually improved from prior. I discussed the results with the patient and her at the bedside. At this time will discharge with return precautions and follow-up recommendations. Verbal discharge instructions given a the bedside and opportunity for questions given. Medication warnings reviewed. Patient is in agreement with this plan and has verbalized understanding of return precautions and the need for primary care follow-up in the next 24-72 hours. - Vital Signs Vital signs: Temp Pulse Resp BP Pulse Ox 98.0 F 16 112/56 L 99 08/19/16 23:32 08/20/16 03:01 08/20/16 03:00 08/20/16 03:01 - Laboratory Result Diagrams: 08/20/16 00:38 08/20/16 00:38 Laboratory results interpreted by me: 08/20/16 08/20/16 00:38 00:38 Hgb 11.9 L RDW 14.7 H Chloride 109 H Glucose 111 H - Diagnostic Test Radiology reviewed: Image reviewed, Reports reviewed - EKG Interpretation by Me Additional EKG results interpreted by me: 08/20/16 03:20 Normal sinus rhythm. Rate 61. No ST elevations or depressions. QTC is 440. Critical Care Note - Critical Care Note Total time excluding time spent on procedures (mins): 36 Comments: Critical care time spent obtaining history from patient or surrogate, discussions with consultants, development of treatment plan with patient or surrogate, evaluation of patient's response to treatment, examination of patient , ordering and performing treatments and interventions, ordering and review of laboratory studies, re-evaluation of patient's condition, ordering and review of radiographic studies and review of old charts Discharge - Discharge Clinical Impression: Syncope Qualifiers: Syncope type: unspecified Qualified Code(s): R55 - Syncope and collapse Vomiting Qualifiers: Vomiting type: unspecified Vomiting Intractability: non-intractable Nausea presence: with nausea Qualified Code(s): R11.2 - Nausea with vomiting, unspecified Condition: Good Disposition: HOME, SELF-CARE Additional Instructions: You were seen today after an episode of passing out. Your EKG here is normal. At this time, we do not feel that your episode of passing out was from any life- threatening cause. Please drink plenty of fluids over the next several days. Return to emergency department if you have any further episodes of syncope, headache, weakness, numbness, chest pain, or shortness of breath. Please follow up closely with your primary care physician. Referrals: LESLEY CASTANO MD [Primary Care Provider] - Follow up as needed
[2016-08-20 00:46] LABS: ABSOLUTE EOSINOPHILS # (AUTO) 0.1 10^3/uL (0.0-0.6); ABSOLUTE LYMPHOCYTES (AUTO) 1.4 10^3/uL (0.5-4.7); ABSOLUTE MONOCYTES (AUTO) 0.5 10^3/uL (0.1-1.4); ABSOLUTE NEUT (AUTO) 4.2 10^3/uL (1.7-8.2); BASOPHILS % (AUTO) 0.5 % (0-2); EOSINOPHILS % (AUTO) 2.1 % (0-6); HEMATOCRIT 36.1 % (36.0-47.0); HEMOGLOBIN 11.9 g/dL (12.0-15.5); HGB HCT DIFFERENCE -0.4; LYMPHOCYTES % (AUTO) 21.9 % (13-45); MEAN CORPUSCULAR HEMOGLOBIN 28.4 pg (27.0-33.4); MEAN CORPUSCULAR HGB CONC 32.8 g/dL (32.0-36.0); MEAN CORPUSCULAR VOLUME 86 fl (80-97); MONOCYTES % (AUTO) 8.3 % (3-13); RED BLOOD COUNT 4.18 10^6/uL (3.72-5.28); RED CELL DISTRIBUTION WIDTH 14.7 % (11.5-14.0); SEGMENTED NEUTROPHILS % (AUTO) 67.2 % (42-78); WHITE BLOOD COUNT 6.2 10^3/uL (4.0-10.5)
[2016-08-20 01:12] LABS: ANION GAP 9 (5-19); BLOOD UREA NITROGEN 11 mg/dL (7-20); CALCIUM 10.1 mg/dL (8.4-10.2); CARBON DIOXIDE 26 mmol/L (22-30); CHLORIDE 109 mmol/L (98-107); CREATININE RESULT 0.73 mg/dL (0.52-1.25); GLUCOSE 111 mg/dL (75-110); POTASSIUM 4.2 mmol/L (3.6-5.0); SODIUM 143.8 mmol/L (137-145)
--- NOTE | 2016-08-20 01:17 | RADIOLOGY REPORT (SQ) ---
EXAM DESCRIPTION: CT HEAD WITHOUT COMPLETED DATE/TIME: 08/20/2016 12:46 am REASON FOR STUDY: acute bleed? COMPARISON: 07/22/2016. TECHNIQUE: Axial images acquired through the brain without intravenous contrast. Images reviewed wi th bone, brain and subdural windows. Images stored on PACS. All CT scanners at this facility use dose modulation, iterative reconstruction, and/or weight based d osing when appropriate to reduce radiation dose to as low as reasonably achievable (ALARA). [facility]: Dose Right [facility]: CareDose [facility]: Dose Right [facility]: Teradose 4D [facility]: [employer] RADIATION DOSE: Up-to-date CT equipment and radiation dose reduction techniques were employed. CTDIv ol: 64.6 mGy. DLP: 1421 mGy-cm. mGy. LIMITATIONS: None. FINDINGS: VENTRICLES: Normal size and contour. CEREBRUM: Intraparenchymal hemorrhage with predominantly vasogenic edema of the left posterior pariet al lobe extending into left temporal lobe and left occipital lobe, similar pattern with decreased hem orrhagic component as compared with prior exam from 1 month ago. Mild cerebral volume loss. CEREBELLUM: No masses. No hemorrhage. No alteration of density. No evidence for acute infarction. EXTRAAXIAL SPACES: No fluid collections. No masses. ORBITS AND GLOBE: No intra- or extraconal masses. Normal contour of globe without masses. CALVARIUM: No fracture. PARANASAL SINUSES: No fluid or mucosal thickening. SOFT TISSUES: No mass or hematoma. OTHER: No other significant finding. 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 Cannot exclud e underlying neoplastic process. Consider correlation with contrast MRI. COMMENT: This report was called to SEAN GARCIA MD at01:04 on 08/20/2016. TECHNICAL DOCUMENTATION: JOB ID: [id number] Quality ID # [id number]: Final reports with documentation of one or more dose reduction techniques (e.g., Au tomated exposure control, adjustment of the mA and/or kV according to patient size, use of iterative reconstruction technique) 2010 [employer]- All Rights Reserved
[2016-08-20 03:58] VITALS: BP 123/70
--- NOTE | 2016-08-20 13:41 | EKG REPORT ---
SEVERITY:- NORMAL ECG - SINUS RHYTHM : Confirmed by: Lisbet Campos 20-Aug-2016 13:40:25
== END 2016-08-20 03:40 | disposition home or self-care (01) ==
LOC: ER 23:06
DX: R55 Syncope and collapse (principal); R11.2 Nausea with vomiting, unspecified; I69.120 Aphasia following nontraumatic intracerebral hemorrhage; I69.122 Dysarthria following nontraumatic intracerebral hemorrhage; I10 Essential (primary) hypertension
CPT/HCPCS: 93005; 99291; 96360; 36415; 85025; 80048; 84484; 70450; 93010; J7030

== ENCOUNTER → 2017-01-25 | Outpatient (CLI) | payer MEDICARE, OTHER ==
--- NOTE | 2017-01-25 13:06 | WOMENS IMAGING REPORT ---
EXAM DESCRIPTION: 3D SCREENING MAMMO BILAT COMPLETED DATE/TIME: 01/25/2017 9:27 am REASON FOR STUDY: SCREENING MAMMO COMPARISON: 01/22/2016 and 01/20/2015. TECHNIQUE: Standard craniocaudal and mediolateral oblique views of each breast recorded using digita l acquisition and breast tomosynthesis. LIMITATIONS: None. FINDINGS: No masses, calcifications or architectural distortion. No areas of suspicion. Read with the assistance of CAD. .[facility] - R2 [employer] Version 1.3 .[facility] Imaging - R2 C[employer] Version 1.3 .[facility] Imaging - R2 C[employer] Version 2.4 .[facility] [place] - R2 Cenova Version 2.4 .[facility] - R2 [employer] Version 9.2 IMPRESSION: NORMAL MAMMOGRAM. BIRADS 1. BREAST DENSITY: b. There are scattered areas of fibroglandular density. BIRAD: 1 NEGATIVE RECOMMENDATION: ROUTINE SCREENING COMMENT: The patient has been notified of the results by letter per MQSA requirements. Additional no tification policies are in place for contacting patient with suspicious or incomplete findings. Quality ID #[id number]: The [employer] recommends an annual screening mammogram for women aged 40 years or over. This facility utilizes a reminder system to ensure that all patients receive reminder letters, and/or direct phone calls for appointments. This includes reminders for routine scr eening mammograms, diagnostic mammograms, or other Breast Imaging Interventions when appropriate. Th is patient will be placed in the appropriate reminder system. The [employer] (ACR) has developed recommendations for screening MRI of the breast s in certain patient populations, to be used in conjunction with mammography. Breast MRI surveillanc e may be appropriate for women with more than 20% lifetime risk of developing breast cancer as deter mined by genetic testing, significant family history of the disease, or history of mantle radiation f or Hodgkins Disease. ACR Practice Guidelines 2008. DBT Technology DBT is a type of tomographic mammography. With conventional mammography, overlapping breast tissue ma y make lesions difficult to detect, even with good compression. DBT uses an x-ray tube that rotates a round the breast, taking images at different angles. These images are then combined to create thin sl ices of the breast that the radiologist can view as a 3D reconstruction. The [employer] unit can perform full-field digital mammograms (2D imaging); or DBT (3D imaging); or both, in a combination mode that quickly performs both the mammogram and the tomosynthesis scan while the breast is still compressed. PQRS 6045F: Fluoroscopic imaging is not utilized for breast tomosynthesis. TECHNICAL DOCUMENTATION: FINDING NUMBER: (1) ASSESSMENT: (1) JOB ID: [id number] [employer]- All Rights Reserved
== END ==
LOC: WI 09:07
PROVIDERS: ATTEND Physician Assistant
DX: Z12.31 Encounter for screening mammogram for malignant neoplasm of breast (principal)
CPT/HCPCS: 77063; G0202; 77067

== ENCOUNTER 2017-05-29 12:13 | Inpatient (IN) | payer MEDICARE, OTHER ==
[2017-05-29 12:53] LABS: HEMATOCRIT 38.5 % (36.0-47.0); HEMOGLOBIN 12.7 g/dL (12.0-15.5); MEAN CORPUSCULAR HEMOGLOBIN 28.2 pg (27.0-33.4); MEAN CORPUSCULAR VOLUME 86 fl (80-97); PLATELET COUNT 273 10^3/uL (150-450); RED CELL DISTRIBUTION WIDTH 14.1 % (11.5-14.0); WHITE BLOOD COUNT 16.2 10^3/uL (4.0-10.5)
--- NOTE | 2017-05-29 13:14 | ER Document Report ---
ED General - General Chief Complaint: General Weakness Stated Complaint: WEAKNESS Time Seen by Provider: 05/29/17 12:30 Mode of Arrival: Medic Information source: Patient, Relative TRAVEL OUTSIDE OF THE [place] IN LAST 30 DAYS: No - HPI Patient complains to provider of: Confusion Onset: This morning Onset/Duration: Gradual Quality of pain: No pain Notes: Patient is a 71-year-old female who was brought to the emergency room by EMS secondary to confusion that has been noted this morning, she has had generalized weakness over the last 2 days as well has not been getting out of bed and sleeping an increased amount, has been noted her to be "incoherent", today, apparently she attempted to speak on the phone to her sister and was not making any sense, has been trying to walk her out to the car and she "collapsed ", has been caught her so she did not fall and injure anything, he reports a history of intracranial bleed in July of last year with similar symptoms, she has not been eating or drinking very much and has been complaining of nausea as well, knows of no fever, patient denies any pain at time of evaluation, however she does appear to be pleasantly confused - Related Data Allergies/Adverse Reactions: No Known Allergies Allergy (Verified 01/20/16 08:24) Past Medical History - General Information source: Patient - Social History Smoking Status: Unknown if Ever Smoked Family History: Reviewed & Not Pertinent. 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 Denies: Hx Ulcer Musculoskeltal Medical History: Reports Hx Arthritis - RIGHT HAND AND RIGHT KNEE Infectious Medical History: Reports: Hx Hepatitis - HEP B 74/REMISSION Past Surgical History: Denies: Hx Hysterectomy, Hx Mastectomy, Hx Open Heart Surgery, Hx Pacemaker - Immunizations Hx Diphtheria, Pertussis, Tetanus Vaccination: Yes Hx Pneumococcal Vaccination: 11/20/14 Review of Systems - Review of Systems Constitutional: Chills, Malaise, Weakness EENT: No symptoms reported Cardiovascular: No symptoms reported Respiratory: No symptoms reported Gastrointestinal: Nausea Genitourinary: No symptoms reported Female Genitourinary: No symptoms reported Musculoskeletal: No symptoms reported Skin: No symptoms reported Hematologic/Lymphatic: No symptoms reported Neurological/Psychological: Weakness -: Yes All other systems reviewed and negative Physical Exam - Vital signs Interpretation: Normal - General General appearance: Alert In distress: None - HEENT Head: Normocephalic, Atraumatic Eyes: Normal Conjunctiva: Normal Extraocular movements intact: Yes Eyelashes: Normal Pupils: PERRL Mucous membranes: Dry Pharynx: Normal Neck: Normal - Respiratory Respiratory status: No respiratory distress Chest status: Nontender Breath sounds: Normal Chest palpation: Normal - Cardiovascular Rhythm: Regular Heart sounds: Normal auscultation Murmur: No - Abdominal Inspection: Normal Distension: No distension Bowel sounds: Normal Tenderness: Nontender Organomegaly: No organomegaly - Back Back: Normal, Nontender - Extremities General upper extremity: Normal inspection, Nontender, Normal color, Normal ROM , Normal temperature General lower extremity: Normal inspection, Nontender, Normal color, Normal ROM , Normal temperature. No: Emily's sign - Neurological Neuro grossly intact: Yes Cognition: Normal, Confused Orientation: Disoriented to time, Disoriented to events [place] Coma Scale Eye Opening: Spontaneous [place] Coma Scale Verbal: Confused [place] Coma Scale Motor: Obeys Commands [place] Coma Scale Total: 14 Speech: Expressive aphasia - mild Motor strength normal: LUE, RUE, LLE, RLE Sensory: Normal - Psychological Associated symptoms: Normal affect, Normal mood - Skin Skin Temperature: Warm Skin Moisture: Dry Skin Color: Pale Course - Re-evaluation Re-evalutation: 05/29/17 15:13 Lab and imaging findings were discussed with patient and family at bedside, although things are unremarkable at this point in time family did express concern that the last time patient presented like this was in July 2016, she was admitted to this facility and in the middle of the night developed an intraparenchymal bleed requiring transfer to tertiary care center, patient symptoms earlier this morning sound as though they are a likely TIA, and reports she has improved significantly since arriving in the emergency department, she still is somewhat confused and oriented to person only, therefore patient was discussed with the hospitalist service who agrees to admit for further evaluation and treatment, patient discussed with LILY Fang - Laboratory Result Diagrams: 05/29/17 12:38 05/29/17 12:38 Laboratory results interpreted by me: 05/29/17 05/29/17 05/29/17 12:38 12:38 13:00 WBC 16.2 H RDW 14.1 H Seg Neuts % (Manual) 96 H Lymphocytes % (Manual) 2 L Monocytes % (Manual) 2 L Abs Neuts (Manual) 15.6 H Abs Lymphs (Manual) 0.3 L BUN 21 H Glucose 149 H Direct Bilirubin 0.6 H AST 77 H Alkaline Phosphatase 128 H Albumin 3.2 L Urine Bilirubin SMALL H Urine Urobilinogen 2.0 H - Diagnostic Test Radiology reviewed: Image reviewed, Reports reviewed - EKG Interpretation by Me EKG shows normal: Sinus rhythm Rate: Normal Rhythm: NSR Discharge - Discharge Clinical Impression: TIA (transient ischemic attack) Qualifiers: Transient cerebral ischemia type: unspecified Qualified Code(s): G45.9 - Transient cerebral ischemic attack, unspecified Condition: Fair Disposition: ADMITTED OBSERVATION Admitting Provider: Hospitalist Unit Admitted: Telemetry
[2017-05-29 13:19] LABS: ALANINE AMINOTRANSFERASE 24 U/L (9-52); ALBUMIN 3.2 g/dL (3.5-5.0); ALKALINE PHOSPHATASE 128 U/L (38-126); ANION GAP 11 (5-19); ASPARTATE AMINO TRANSFERASE 77 U/L (14-36); BILIRUBIN,DIRECT 0.6 mg/dL (0.0-0.4); BILIRUBIN,TOTAL 1.1 mg/dL (0.2-1.3); BLOOD UREA NITROGEN 21 mg/dL (7-20); CALCIUM 9.6 mg/dL (8.4-10.2); CARBON DIOXIDE 28 mmol/L (22-30); CHLORIDE 105 mmol/L (98-107); GLUCOSE 149 mg/dL (75-110); SODIUM 143.5 mmol/L (137-145); TOTAL PROTEIN 6.3 g/dL (6.3-8.2)
--- NOTE | 2017-05-29 13:33 | EKG REPORT ---
SEVERITY:- NORMAL ECG - SINUS RHYTHM : Confirmed by: Savage Pedroza MD 29-May-2017 13:32:36
[2017-05-29 13:34] LABS: AMORPHOUS SEDIMENT,URINE TRACE /HPF; APPEARANCE,URINE SLIGHTLY-CLOUDY; BILIRUBIN,URINE SMALL (NEGATIVE); COLOR,URINE AMBER; GLUCOSE, URINE NEGATIVE (NEGATIVE); KETONES,URINE NEGATIVE (NEGATIVE); LEUKOCYTE ESTERASE,URINE NEGATIVE (NEGATIVE); NITRITE,URINE NEGATIVE (NEGATIVE); PROTEIN,URINE NEGATIVE (NEGATIVE); URINE SPECIFIC GRAVITY 1.019
[2017-05-29 13:43] LABS: ABSOLUTE LYMPHOCYTES# (MANUAL) 0.3 10^3/uL (0.5-4.7); ABSOLUTE MONOCYTES # (MANUAL) 0.3 10^3/uL (0.1-1.4); ABSOLUTE NEUTROPHILS# (MANUAL) 15.6 10^3/uL (1.7-8.2); BASOPHILS % (MANUAL) 0 % (0-2); EOSINOPHILS % (MANUAL) 0 % (0-6); LYMPHOCYTES % (MANUAL) 2 % (13-45); MONOCYTES % (MANUAL) 2 % (3-13); SEGMENTED NEUTROPHILS % (MAN) 96 % (42-78); TOTAL CELLS COUNTED 100
[2017-05-29 13:44] LABS: ANISOCYTOSIS SLIGHT; OVALOCYTES SLIGHT; PLATELET COMMENT ADEQUATE; POIKILOCYTOSIS SLIGHT
--- NOTE | 2017-05-29 13:45 | RADIOLOGY REPORT (SQ) ---
EXAM DESCRIPTION: CT HEAD WITHOUT COMPLETED DATE/TIME: 05/29/2017 1:32 pm REASON FOR STUDY: confused COMPARISON: CT brain 05/30/2016, 07/22/2016 MRI brain 07/21/2016 TECHNIQUE: Axial images acquired through the brain without intravenous contrast. Images reviewed wi th bone, brain and subdural windows. Additional sagittal and coronal reconstructions were generated. Images stored on PACS. All CT scanners at this facility use dose modulation, iterative reconstruction, and/or weight based d osing when appropriate to reduce radiation dose to as low as reasonably achievable (ALARA). [facility]: Dose Right [facility]: CareDose [facility]: Dose Right [facility]: Teradose 4D [facility]: [employer] RADIATION DOSE: CT Rad equipment meets quality standard of care and radiation dose reduction techniq ues were employed. CTDIvol: 53.2 mGy. DLP: 1017 mGy-cm. mGy. LIMITATIONS: None. FINDINGS: VENTRICLES: No hemorrhage. CEREBRUM: No CT evidence of acute large territory ischemic change, acute intracranial hemorrhage, mas s effect, or midline shift. Patient has an old infarct in the left posterior temporal and occipital c ortex and subcortical white matter, similar in extent compared to prior exams. There is encephalomal acia in the posterior left temporal lobe and occipital lobe with compensatory dilatation of the left lateral ventricle. Diffuse bifrontal and biparietal moderate small vessel chronic ischemic changes p resent, stable. This CEREBELLUM: No masses. No hemorrhage. No alteration of density. No evidence for acute infarction. EXTRAAXIAL SPACES: No fluid collections. No masses. ORBITS AND GLOBE: Post cataract surgery. CALVARIUM: No fracture. PARANASAL SINUSES: No fluid or mucosal thickening. SOFT TISSUES: No mass or hematoma. OTHER: No other significant finding. IMPRESSION: No acute findings. Stable left temporal/ occipital infarct moderate bifrontal and biparietal chronic white matter diseas e. EVIDENCE OF ACUTE STROKE: No COMMENT: Quality ID # [id number]: Final reports with documentation of one or more dose reduction techniques (e.g., Automated exposure control, adjustment of the mA and/or kV according to patient size, use of iterative reconstruction technique) TECHNICAL DOCUMENTATION: JOB ID: [id number] [employer]- All Rights Reserved Reading location - IP/workstation name: [facility]
--- NOTE | 2017-05-29 13:56 | RADIOLOGY REPORT (SQ) ---
EXAM DESCRIPTION: CHEST SINGLE VIEW COMPLETED DATE/TIME: 05/29/2017 1:40 pm REASON FOR STUDY: confused COMPARISON: Chest films 09/28/2009, 07/21/2016, 07/22/2016 EXAM PARAMETERS: NUMBER OF VIEWS: One view. TECHNIQUE: Single frontal radiographic view of the chest acquired. RADIATION DOSE: NA LIMITATIONS: None. FINDINGS: LUNGS AND PLEURA: No opacities, masses or pneumothorax. No pleural effusion. MEDIASTINUM AND HILAR STRUCTURES: No masses. Contour normal. HEART AND VASCULAR STRUCTURES: Heart normal in size. Normal vasculature. BONES: No acute findings. HARDWARE: None in the chest. OTHER: No other significant finding. IMPRESSION: NO ACUTE RADIOGRAPHIC FINDING IN THE CHEST. TECHNICAL DOCUMENTATION: JOB ID: [id number] [employer]- All Rights Reserved Reading location - IP/workstation name: [email or web address]
[2017-05-29] MEDS ORDERED: ATORVASTATIN CALCIUM 20 MG TABLET PO ONE (19:00)
[2017-05-29] MEDS ORDERED: ASPIRIN 325 MG TABLET PO ONE (19:00)
--- NOTE | 2017-05-29 19:14 | PDOC H&P ---
History of Present Illness Admission Date/PCP: 05/29/17 15:20 Patient complains of: Altered mental status History of Present Illness: PETEY MATA is a 71 year old female who presented to the emergency department for confusion and generalized weakness. The patient's reports that the patient has been increasingly confused over the last 2 days, but when he attempted to wake her up this morning at 0830 she did not know where she was, she did not know her name, she could barely sit up on the side of the bed, nor could she attempts to dress herself. He has been then attempted to walk her out to the car to bring her to the emergency department, when she had a syncopal episode. was able to catch his . No head trauma, he was able to lower her to the ground. EMS was called. The patient presented to the ED with confusion and garbled speech. Head CT shows old infarct in the left posterior temporal and occipital cortex, no evidence of acute infarct or hemorrhage. Of note, the patient presented with similar symptoms in July 2016. [facility]. Within 24 hours she was complaining of a headache. Head CT showed intraparenchymal hemorrhage, requiring transfer to [facility]. EKG showed normal sinus rhythm, no evidence of ischemia or acute infarction. The patient's symptoms resolved significantly while she was in the emergency department. Upon assessment her speech is clear, she is alert and oriented to person, place, time, but is unclear about why she is at the hospital. The patient has equal strength in all 4 extremities, no evidence of facial droop, PERRLA, denies paresthesia, mild dysmetria and poor fine motor control with both hands, patient has difficulty with pantomime, and has R hemianopia. According to the patient's , all of her deficits are residuals from her previous stroke. She has no new deficits upon exam. PMH includes TIA, intraparenchymal hemorrhage, hypothyroid, hypertension PMD: Dr. Cristian Raza Neurologist: [facility] Past Medical History Cardiac Medical History: Reports: Hyperlipidema, Hypertension - ON MEDS Denies: Coronary Artery Disease, Myocardial Infarction Pulmonary Medical History: Denies: Asthma, Bronchitis, Chronic Obstructive Pulmonary Disease (COPD), Pneumonia Neurological Medical History: Denies: Seizures Endocrine Medical History: Reports: Hypothyroidism GI Medical History: Reports: Hepatitis - HEP B 73/REMISSION, Hiatal Hernia Musculoskeltal Medical History: Reports: Arthritis - RIGHT HAND AND RIGHT KNEE Hematology: Denies: Anemia, Sickle Cell Disease Past Surgical History Past Surgical History: Reports: Cholecystectomy Denies: Amputation, Hysterectomy, Mastectomy, Pacemaker Social History Information Source: Patient Smoking Status: Former Smoker Frequency of Alcohol Use: None Hx Recreational Drug Use: No Hx Prescription Drug Abuse: No - Advance Directive Resuscitation Status: Full Code Family History Family History: Reviewed & Not Pertinent. denies: CVA Parental Family History Reviewed: Yes - father - cancer; mother - alzheimers Children Family History Reviewed: Yes Sibling(s) Family History Reviewed.: Yes - brother - in late 40s from [place] Medication/Allergy Allergies/Adverse Reactions: No Known Allergies Allergy (Verified 01/20/16 08:24) Review of Systems Constitutional: PRESENT: as per HPI Integumentary: PRESENT: other - ulceration to R lateral lower lip Neurological: PRESENT: abnormal movements - Residual deficits, lack of coordination - Residual deficits Physical Exam Vital Signs: Temp Pulse Resp BP Pulse Ox 15 117/53 L 100 05/29/17 16:01 05/29/17 16:01 05/29/17 16:01 General appearance: PRESENT: no acute distress Eye exam: PRESENT: conjunctiva pink, PERRLA Mouth exam: PRESENT: moist Neck exam: PRESENT: full ROM Respiratory exam: PRESENT: clear to auscultation richie, symmetrical, unlabored Cardiovascular exam: PRESENT: +S1, +S2, systolic murmur Pulses: PRESENT: normal radial pulses, normal dorsalis pedis pul GI/Abdominal exam: PRESENT: normal bowel sounds, soft. ABSENT: tenderness Rectal exam: PRESENT: deferred Extremities exam: PRESENT: full ROM Musculoskeletal exam: PRESENT: full ROM Neurological exam: PRESENT: alert, awake, oriented to person, oriented to place , oriented to time, oriented to situation Psychiatric exam: PRESENT: appropriate affect Skin exam: PRESENT: normal color Results Impressions: Chest X-Ray 05/29/17 13:08 IMPRESSION: NO ACUTE RADIOGRAPHIC FINDING IN THE CHEST. Head CT 05/29/17 13:08 IMPRESSION: No acute findings. Stable left temporal/ occipital infarct moderate bifrontal and biparietal chronic white matter disease. EVIDENCE OF ACUTE STROKE: No Status: Imported from PACS Assessment & Plan - Diagnosis (1) TIA (transient ischemic attack) Qualifiers: Transient cerebral ischemia type: unspecified Qualified Code(s): G45.9 - Transient cerebral ischemic attack, unspecified Is this a current diagnosis for this admission?: Yes Plan: Patient presented with confusion and unable to ambulate or dress herself. Equal strength in all extremities. No paresthesia. No facial droop. PERRLA. A bedside swallow evaluation Head CT negative, only shows old infarct. No acute pathology. Plan for MRI/MRA head. Plan for carotid Doppler to evaluate for stenosis. Plan for echocardiogram to evaluate for possible source of thrombus, or other pathology (2) Hypertension Qualifiers: Hypertension type: essential hypertension Qualified Code(s): I10 - Essential (primary) hypertension Is this a current diagnosis for this admission?: Yes Plan: Patient endorses a history of hypertension. She has remained normotensive since admission. Will resume home dose antihypertensives and as needed IV hydralazine. (3) Hypothyroid Qualifiers: Hypothyroidism type: unspecified Qualified Code(s): E03.9 - Hypothyroidism , unspecified Is this a current diagnosis for this admission?: Yes Plan: Patient endorses history of hypothyroidism. Continue home dose Synthroid. - Time Critical Time spent with patient: 15-24 minutes Medications reviewed and adjusted accordingly: Yes Anticipated discharge: Home - Inpatient Certification Based on my medical assessment, after consideration of the patient's comorbidities, presenting symptoms, or acuity I expect that the services needed warrant INPATIENT care.: Yes I certify that my determination is in accordance with my understanding of Medicare's requirements for reasonable and necessary INPATIENT services [42 CFR 412.3e].: Yes Medical Necessity: Risk of Complication if Not Cared For in Hospital - Plan Summary Plan Summary: At this point, the disposition is unclear. Plan to workup transient ischemic attack. Should the patient decompensate, she will require transfer to tertiary facility. If her TIA workup is negative, she will be discharged home with close follow-up to neurology.
--- NOTE | 2017-05-29 20:32 | RADIOLOGY REPORT (SQ) ---
EXAM DESCRIPTION: MRI HEAD WITHOUT COMPLETED DATE/TIME: 05/29/2017 8:09 pm REASON FOR STUDY: TIA I67.9 CEREBROVASCULAR DISEASE, UNSPECIFIED I25.6 SILENT MYOCARDIAL ISCHEMIA COMPARISON: CT from 05/29/2017. Previous CT from 08/20/2016. This exam qualifies as a separate session for this patient's imaging care and occurred 7 hours after the previous session of cross-sectional imaging care. TECHNIQUE: Multiplanar imaging includes non-contrasted T1, T2, FLAIR, and diffusion with ADC map seq uences. Images stored on PACS. LIMITATIONS: None. FINDINGS: ANATOMY: No anomalies. Normal vascular flow voids. Pituitary fossa normal. CSF SPACES: Age-appropriate. Some dilatation of the left ventricular temporal and occipital horns re lated to overlying parenchymal volume loss. CEREBRUM: Encephalomalacia in the left occipital lobe and left temporal lobe. Consistent with old in farct here with previous hemorrhage. See diffusion imaging below. POSTERIOR FOSSA: No signal alteration. No hemorrhage. No edema, masses or mass effect. Internal luisito tory canals, cerebello-pontine angles, mastoids normal. DIFFUSION IMAGING: Along the medial aspect of the left temporal lobe tracking to the left occipital l obe, there is a band of restricted diffusion. This is consistent with a more recent area of infarct superimposed on the chronic encephalomalacia related to previous infarct. ORBITS: No masses. Globes normal. PARANASAL SINUSES: No fluid levels. Mucosa normal. OTHER: No other significant finding. IMPRESSION: 1. Mild recent infarct superimposed on chronic changes in the left temporal and occipita l lobes. EVIDENCE OF ACUTE STROKE: YES. LEFT MCA TECHNICAL DOCUMENTATION: JOB ID: [id number]- All Rights Reserved Reading location - IP/workstation name: [email or web address]
--- NOTE | 2017-05-29 20:38 | RADIOLOGY REPORT (SQ) ---
EXAM DESCRIPTION: MRA HEAD WITHOUT COMPLETED DATE/TIME: 05/29/2017 8:25 pm REASON FOR STUDY: TIA I67.9 CEREBROVASCULAR DISEASE, UNSPECIFIED I25.6 SILENT MYOCARDIAL ISCHEMIA COMPARISON: MRI brain from same date, separately dictated. TECHNIQUE: Axial 3-D [id number] acquisition imaging performed through the brain in the area of t he [place]. Images reformatted using 3-D MIPS. LIMITATIONS: Mild motion artifact. FINDINGS: SOURCE IMAGES: No unexpected findings on source images. No large masses. 3-D MIP: No aneurysm. No occlusions. No significant stenosis. OTHER: No other significant finding. IMPRESSION: NORMAL MRA OF THE [place]. TECHNICAL DOCUMENTATION: JOB ID: [id number] [employer]- All Rights Reserved Reading location - IP/workstation name: [email or web address]
[2017-05-29] MEDS: HEPARIN SOD (PORCINE) 5,000 UNIT/ML 1 ML SYRINGE SUBCUT SCH (22:52)
[2017-05-30] MEDS: HEPARIN SOD (PORCINE) 5,000 UNIT/ML 1 ML SYRINGE SUBCUT SCH ×3 (05:52→21:38)
[2017-05-30 06:48] LABS: HEMATOCRIT 33.9 % (36.0-47.0); HEMOGLOBIN 11.3 g/dL (12.0-15.5); MEAN CORPUSCULAR HGB CONC 33.3 g/dL (32.0-36.0); MEAN CORPUSCULAR VOLUME 84 fl (80-97); PLATELET COUNT 195 10^3/uL (150-450); RED BLOOD COUNT 4.03 10^6/uL (3.72-5.28); RED CELL DISTRIBUTION WIDTH 14.1 % (11.5-14.0); WHITE BLOOD COUNT 12.7 10^3/uL (4.0-10.5)
[2017-05-30 07:09] LABS: ALANINE AMINOTRANSFERASE 34 U/L (9-52); ALBUMIN 2.5 g/dL (3.5-5.0); ALKALINE PHOSPHATASE 115 U/L (38-126); ASPARTATE AMINO TRANSFERASE 45 U/L (14-36); BILIRUBIN,DIRECT 0.6 mg/dL (0.0-0.4); BLOOD UREA NITROGEN 21 mg/dL (7-20); CALCIUM 9.3 mg/dL (8.4-10.2); CHOLESTEROL 61.99 mg/dL (0-200); GLUCOSE 90 mg/dL (75-110); POTASSIUM 4.1 mmol/L (3.6-5.0); TOTAL PROTEIN 4.9 g/dL (6.3-8.2); TRIGLYCERIDES 60 mg/dL (<150)
[2017-05-30 07:15] LABS: ANION GAP 6 (5-19); CARBON DIOXIDE 26 mmol/L (22-30); CHLORIDE 105 mmol/L (98-107); SODIUM 137.2 mmol/L (137-145)
[2017-05-30 07:33] LABS: DIRECT LDL < 30 mg/dL (<100)
[2017-05-30] MEDS ORDERED: HYDRALAZINE HCL INJ/PF 20 MG/1 ML SDV IV PRN ×2 (08:03→08:06)
[2017-05-30] MEDS ORDERED: CLOPIDOGREL BISULFATE 300 MG TABLET PO ONE (08:06)
[2017-05-30] MEDS ORDERED: ACETAMINOPHEN 325 MG TABLET PO PRN (08:08)
[2017-05-30] MEDS ORDERED: CLOPIDOGREL BISULFATE 75 MG TABLET PO ONE (08:30)
[2017-05-30] MEDS ORDERED: CLOPIDOGREL BISULFATE 75 MG TABLET PO SCH (10:00)
[2017-05-30] MEDS ORDERED: AMLODIPINE BESYLATE 10 MG TABLET PO SCH (10:00)
[2017-05-30] MEDS ORDERED: MULTIVIT TX WITH IRON MINERALS PO SCH (10:00)
[2017-05-30] MEDS: FERROUS SULFATE 325 MG TABLET PO SCH (10:47)
[2017-05-30] MEDS: MULTIVITAMIN TABLET PO SCH (10:47)
[2017-05-30] MEDS: ASPIRIN 325 MG TABLET PO SCH (10:47)
[2017-05-30] MEDS: SERTRALINE HCL 50 MG TABLET PO SCH (10:48)
--- NOTE | 2017-05-30 13:47 | PDOC PROGRESS REPORT ---
Subjective Progress Note for:: 05/30/17 Subjective:: The patient is a 71-year-old female with a past medical history of previous CVA this year, intraparenchymal hemorrhage, hypothyroidism, and hypertension admitted on 05/29/17 for a complaint of altered mental status. She was noted in the emergency department to have confusion and garbled speech. Head CT showed an old infarct of the left posterior temporal and occipital cortex with no evidence of acute infarct or hemorrhage. The patient was seen on morning rounds with her and daughter present. She is able to answer yes or no questions and appears to be alert and oriented 4, however, continues to have difficulty with word finding. The patient and family members are informed that, unfortunately, follow-up MRI imaging does show a new small stroke in the left MCA distribution. The patient denies complaints at this time. Patient's and daughter do report that she seems to be more fatigued, have increased expressive aphasia, and worsening right-sided inattention and weakness. They have requested that the patient be referred to rehabilitation upon discharge as prior to this admission she was ambulatory with minimal assistance. Reason For Visit: TRANSIENT CEREBRAL ISCHEMIA Physical Exam Vital Signs: Temp Pulse Resp BP Pulse Ox 99.9 F 80 18 120/50 L 100 05/30/17 11:18 05/30/17 12:00 05/30/17 12:00 05/30/17 12:00 05/30/17 12:00 Intake & Output 05/29/17 05/30/17 05/31/17 06:59 06:59 06:59 Intake Total 102 118 Balance 102 118 Weight 60.4 kg General appearance: PRESENT: no acute distress, well-developed, well-nourished Head exam: PRESENT: atraumatic, normocephalic Eye exam: PRESENT: conjunctiva pink, EOMI, PERRLA. ABSENT: scleral icterus Ear exam: PRESENT: normal external ear exam Mouth exam: PRESENT: moist, tongue midline Neck exam: ABSENT: carotid bruit, JVD, lymphadenopathy, thyromegaly Respiratory exam: PRESENT: clear to auscultation richie, symmetrical, unlabored. ABSENT: rales, rhonchi, wheezes Cardiovascular exam: PRESENT: RRR, +S1, +S2, systolic murmur. ABSENT: diastolic murmur, rubs Pulses: PRESENT: normal dorsalis pedis pul Vascular exam: PRESENT: normal capillary refill GI/Abdominal exam: PRESENT: normal bowel sounds, soft. ABSENT: distended, guarding, mass, organolmegaly, rebound, tenderness Rectal exam: PRESENT: deferred Extremities exam: PRESENT: full ROM. ABSENT: calf tenderness, clubbing, pedal edema Neurological exam: PRESENT: alert, awake, oriented to person, oriented to place , oriented to time, oriented to situation, CN II-XII grossly intact - Right sided weakness; especially to lower extremity, aphasic - Expressive aphasia, other - Does follow one-step commands, however, requires multiple promptings. ABSENT: motor sensory deficit Psychiatric exam: PRESENT: appropriate affect, normal mood. ABSENT: homicidal ideation, suicidal ideation Skin exam: PRESENT: dry, intact, warm. ABSENT: cyanosis, rash Results Laboratory Results: 05/30/17 06:09 05/30/17 06:09 05/30/17 05/30/17 06:09 06:09 WBC 12.7 H RBC 4.03 Hgb 11.3 L Hct 33.9 L MCV 84 MCH 28.0 MCHC 33.3 RDW 14.1 H Plt Count 195 Sodium 137.2 Potassium 4.1 Chloride 105 Carbon Dioxide 26 Anion Gap 6 BUN 21 H Creatinine 0.57 Est GFR ( Amer) > 60 Est GFR (Non-Af Amer) > 60 Glucose 90 Calcium 9.3 Total Bilirubin 1.0 AST 45 H ALT 34 Alkaline Phosphatase 115 Total Protein 4.9 L Albumin 2.5 L Triglycerides 60 Cholesterol 61.99 LDL Cholesterol Direct < 30 VLDL Cholesterol 12.0 HDL Cholesterol 34 L Impressions: Head MRI 05/29/17 00:00 IMPRESSION: 1. Mild recent infarct superimposed on chronic changes in the left temporal and occipital lobes. EVIDENCE OF ACUTE STROKE: YES. LEFT MCA Chest X-Ray 05/29/17 13:08 IMPRESSION: NO ACUTE RADIOGRAPHIC FINDING IN THE CHEST. Head CT 05/29/17 13:08 IMPRESSION: No acute findings. Stable left temporal/ occipital infarct moderate bifrontal and biparietal chronic white matter disease. EVIDENCE OF ACUTE STROKE: No Brain MRI with MRA 05/29/17 18:29 IMPRESSION: NORMAL MRA OF THE [place]. Assessment & Plan - Diagnosis (1) CVA (cerebral vascular accident) Qualifiers: Laterality of affected vessel: left Is this a current diagnosis for this admission?: Yes Plan: The patient presented with sudden onset confusion and inability to ambulate or dress herself. However, the patient's reports that he had felt that she was "not quite herself" for approximately 3 weeks prior to this event. Initial head CT was negative and showed only her previous infarct. Follow-up head MRI showed a mild recent infarct superimposed on chronic changes in the left temporal and occipital lobes. Left MCA CVA. Brain MRI MRA showed a normal [place]. Carotid Doppler study has been completed; report is not been filed. Echocardiogram is pending. Lipid panel is acceptable. The patient is admitted to [facility] on continuous cardiac telemetry; she has remained in normal sinus rhythm. PT/OT/ST have been consulted. We will allow for permissive hypertension; holding amlodipine and lisinopril as the patient's blood pressures have been soft today. IV hydralazine for elevated blood pressures. Continue atorvastatin. Continue daily aspirin. I have initiated Plavix therapy. Per the patient's , the patient was previously on a blood thinner (most likely Eliquis) which was discontinued sometime in the past; likely at time of recent intraparenchymal hemorrhage. Patient is not a candidate for chronic anticoagulation at this time. We will consult discharge planning for acute rehabilitation placement (2) Leukocytosis Is this a current diagnosis for this admission?: Yes Plan: Trending down; 16.2--> 12.7. This is likely related to CVA. However, as the patient did have a three-week prodromal of fatigue and decreased mental acuity per there is a possibility of underlying infection. Urinalysis is negative for UTI. Urine culture has no growth at 1 day. We will continue to monitor closely for need for antibiotic coverage. (3) Hypertension Qualifiers: Hypertension type: essential hypertension Qualified Code(s): I10 - Essential (primary) hypertension Is this a current diagnosis for this admission?: Yes Plan: The patient endorses a history of hypertension; will hold amlodipine and lisinopril as described above. IV hydralazine as needed for blood pressure control. (4) Hypothyroid Qualifiers: Hypothyroidism type: unspecified Qualified Code(s): E03.9 - Hypothyroidism , unspecified Is this a current diagnosis for this admission?: Yes Plan: Continue home dose Synthroid. (5) Anemia Is this a current diagnosis for this admission?: Yes Plan: Hgb noted to have trended down to 11.3 from 12.7. We will continue to monitor. - Time Time Spent with patient: 25-34 minutes Medications reviewed and adjusted accordingly: Yes Anticipated discharge: Acute Rehab Within: within 72 hours - Inpatient Certification Based on my medical assessment, after consideration of the patient's comorbidities, presenting symptoms, or acuity I expect that the services needed warrant INPATIENT care.: Yes I certify that my determination is in accordance with my understanding of Medicare's requirements for reasonable and necessary INPATIENT services [42 CFR 412.3e].: Yes Medical Necessity: Need Close Monitoring Due to Risk of Patient Decompensation, Need for Neurological Checks
--- NOTE | 2017-05-30 14:10 | RADIOLOGY REPORT (SQ) ---
EXAM DESCRIPTION: CAROTID DOPPLER COMPLETED DATE/TIME: 05/30/2017 1:51 pm REASON FOR STUDY: TIA I67.9 CEREBROVASCULAR DISEASE, UNSPECIFIED I25.6 SILENT MYOCARDIAL ISCHEMIA D64.9 ANEMIA, UNSPECIFIED COMPARISON: None. TECHNIQUE: Grayscale ultrasound, Doppler velocity and spectra, and color Doppler images acquired of the extra-cranial carotid and vertebral arteries. Images stored on PACS. LIMITATIONS: None. FINDINGS: RIGHT CAROTID CCA Velocities: Within normal limits. ICA Velocities Peak systolic 0.72 m/s. End diastolic 0.14 m/s. Proximal ICA/CCA peak systolic ratio 1.0. Spectra normal. No significant plaque. LEFT CAROTID CCA Velocities: Within normal limits. ICA Velocities Peak systolic 1.0 m/s. End diastolic 0.23 m/s. Proximal ICA/CCA peak systolic ratio 1.6. Spectra normal. No significant plaque. VERTEBRAL ARTERIES: Antegrade flow. Normal waveforms. SUBCLAVIAN ARTERIES: No finding. OTHER: No other significant finding. IMPRESSION: NO HEMODYNAMICALLY SIGNIFICANT STENOSIS. COMMENT: Quality ID #[id number]: Velocity criteria are extrapolated from the diameter data as defined by t he Society of Radiologists in Ultrasound Consensus Conference. Radiology 2003: 229; 340-346. TECHNICAL DOCUMENTATION: JOB ID: [id number] [employer]- All Rights Reserved Reading location - IP/workstation name: [email or web address]
--- NOTE | 2017-05-30 17:38 | RADIOLOGY REPORT (SQ) ---
EXAM DESCRIPTION: HIP BILATERAL COMPLETED DATE/TIME: 05/30/2017 5:25 pm REASON FOR STUDY: pain with Rt leg extension; fall yesterday I67.9 CEREBROVASCULAR DISEASE, UNSPECI FIED I25.6 SILENT MYOCARDIAL ISCHEMIA D64.9 ANEMIA, UNSPECIFIED COMPARISON: None. NUMBER OF VIEWS: Two views TECHNIQUE: AP pelvis and additional frog-leg view of both hips. LIMITATIONS: None. FINDINGS: MINERALIZATION: Normal. HIPS: No acute fracture or dislocation. No worrisome bone lesions. PELVIS AND SACRUM: No acute fracture or dislocation. No worrisome bone lesions. PUBIS AND ISCHIUM: No acute fracture. LOWER LUMBAR SPINE: No significant findings as visualized. SOFT TISSUES: No findings. OTHER: No other significant finding. IMPRESSION: NEGATIVE STUDY OF THE PELVIS AND HIPS. TECHNICAL DOCUMENTATION: JOB ID: [id number] [employer]- All Rights Reserved Reading location - IP/workstation name: [email or web address]
--- NOTE | 2017-05-30 17:39 | RADIOLOGY REPORT (SQ) ---
EXAM DESCRIPTION: KNEE RIGHT 3 VIEWS COMPLETED DATE/TIME: 05/30/2017 5:25 pm REASON FOR STUDY: pain with Rt leg extension; fall yesterday I67.9 CEREBROVASCULAR DISEASE, UNSPECI FIED I25.6 SILENT MYOCARDIAL ISCHEMIA D64.9 ANEMIA, UNSPECIFIED COMPARISON: None. NUMBER OF VIEWS: Three views. TECHNIQUE: AP, lateral, and tunnel radiographic images acquired of the right knee. LIMITATIONS: None. FINDINGS: MINERALIZATION: Normal. BONES: No acute fracture or dislocation. Joint space narrowing with sclerosis and osteophytes. No w orrisome bone lesions. JOINT: Calcifications superior to the patella, possibly in the suprapatellar bursa. SOFT TISSUES: No soft tissue swelling. No radio-opaque foreign body. OTHER: No other significant finding. IMPRESSION: DEGENERATIVE CHANGES. NO ACUTE FINDINGS. TECHNICAL DOCUMENTATION: JOB ID: [id number] [employer]- All Rights Reserved Reading location - IP/workstation name: [email or web address]
--- NOTE | 2017-05-30 19:42 | XCELERA REPORT ---
[address] [address] Transthoracic Echocardiogram Report Name: PETEY MATA Age: 71 yrs Gender: Female : 1945 Patient Status: Inpatient Patient Location: [address] [place] [address] Study Date: 05/30/2017 09:17 AM Height: 65 in Weight: 132 lb BSA: 1.7 m2 Procedure: A complete two-dimensional transthoracic echocardiogram was performed (2D, M-mode, spectral and color flow Doppler). The study was technically adequate with some images being suboptimal in quality. Reason For Study: TIA Ordering Physician: ENMANUEL RASMUSSEN Performed By: Jennie Leiva Interpretation Summary The left ventricular ejection fraction is normal. There is borderline concentric left ventricular hypertrophy. The left ventricle is grossly normal size. Doppler measurements suggest pseudonormalized left ventricular relaxation, which is associated with grade II/IV or mild to moderate diastolic dysfunction Wall motion cannot be accurately commented on, but no definite regional wall motion abnormalities noted. The right ventricular systolic function is normal. The right atrium is normal in size The left atrial size is normal. There is a trace amount of mitral regurgitation There is no mitral valve stenosis. There is a mild to moderate amount of aortic regurgitation There is no aortic valve stenosis There is a trace to mild amount of tricuspid regurgitation There is mild to moderate pulmonary hypertension by echo Right ventricular systolic pressure is estimated to be elevated at 40- 50mmHg. There is no pericardial effusion. No definite cardiac source of CVA/TIA noted on this particular trans- thoracic study. May consider mobile cardiac telemetry monitoring (MCT) for ruling out transient AFIB. Consider JORJE if clinically indicated. MMode/2D Measurements & Calculations RVDd: 2.2 cm LVIDd: 3.6 cm FS: 33.2 % Ao root diam: 2.6 cm IVSd: 0.85 cm LVIDs: 2.4 cm EDV(Teich): 54.0 ml LVPWd: 0.88 cm ESV(Teich): 20.1 ml Ao root area: 5.5 cm2 EF(Teich): 62.9 % LA dimension: 2.8 cm Doppler Measurements & Calculations MV E max remi: MV P1/2t max remi: Ao V2 max: AI max remi: 100.7 cm/sec 101.2 cm/sec 218.2 cm/sec 452.0 cm/sec MV A max remi: MV P1/2t: 70.5 msec Ao max PG: AI max P.3 cm/sec 19.0 mmHg 81.7 mmHg MV E/A: 1.1 MVA(P1/2t): 3.1 cm2 AI dec slope: MV dec slope: 420.5 cm/sec2 369.3 cm/sec2 MV dec time: AI P1/2t: 0.23 sec 358.5 msec LV V1 max PG: PA V2 max: TR max remi: 11.0 mmHg 90.8 cm/sec 276.9 cm/sec LV V1 max: PA max P.3 mmHg TR max P.0 cm/sec 30.7 mmHg Left Ventricle The left ventricle is grossly normal size. There is borderline concentric left ventricular hypertrophy. The left ventricular ejection fraction is normal. Doppler measurements suggest pseudonormalized left ventricular relaxation, which is associated with grade II/IV or mild to moderate diastolic dysfunction. Wall motion cannot be accurately commented on, but no definite regional wall motion abnormalities noted. Right Ventricle The right ventricle is grossly normal size. There is normal right ventricular wall thickness. The right ventricular systolic function is normal. Atria The right atrium is normal in size. The left atrial size is normal. Interarterial septum not well visualized and not well dopplered. Cannot comment on ASD/PFO presence. Mitral Valve The mitral valve is grossly normal. There is no mitral valve stenosis. There is a trace amount of mitral regurgitation. Aortic Valve The aortic valve is not well visualized secondary to technical limitations. There is no aortic valve stenosis. There is a mild to moderate amount of aortic regurgitation. Tricuspid Valve The tricuspid valve is not well visualized secondary to technical limitations. There is no tricuspid stenosis. There is a trace to mild amount of tricuspid regurgitation. There is mild to moderate pulmonary hypertension by echo. Right ventricular systolic pressure is estimated to be elevated at 40-50mmHg. Pulmonic Valve The pulmonic valve is not well visualized. Great Vessels The aortic root is not well visualized but is probably normal size. The inferior vena cava appeared normal and decreased > 50% with respiration (RAP 5-10 mmHg). Effusions There is no pericardial effusion. Incidental Findings Consider JORJE if clinically indicated. May consider mobile cardiac telemetry monitoring (MCT) for ruling out transient AFIB. No definite cardiac source of CVA/TIA noted on this particular trans-thoracic study. : ENMANUEL RASMUSSEN > Lisbet Campos
[2017-05-30] MEDS: ATORVASTATIN CALCIUM 20 MG TABLET PO SCH (21:39)
[2017-05-31] MEDS: HEPARIN SOD (PORCINE) 5,000 UNIT/ML 1 ML SYRINGE SUBCUT SCH ×3 (06:09→22:31)
[2017-05-31 07:28] LABS: HEMATOCRIT 29.6 % (36.0-47.0); HEMOGLOBIN 10.1 g/dL (12.0-15.5); MEAN CORPUSCULAR HEMOGLOBIN 28.8 pg (27.0-33.4); MEAN CORPUSCULAR HGB CONC 34.1 g/dL (32.0-36.0); MEAN CORPUSCULAR VOLUME 84 fl (80-97); PLATELET COUNT 203 10^3/uL (150-450); RED BLOOD COUNT 3.51 10^6/uL (3.72-5.28); WHITE BLOOD COUNT 10.8 10^3/uL (4.0-10.5)
[2017-05-31 07:48] LABS: ANION GAP 6 (5-19); BLOOD UREA NITROGEN 20 mg/dL (7-20); CALCIUM 8.8 mg/dL (8.4-10.2); CARBON DIOXIDE 27 mmol/L (22-30); CHLORIDE 106 mmol/L (98-107); GLUCOSE 80 mg/dL (75-110); POTASSIUM 3.7 mmol/L (3.6-5.0); SODIUM 139.3 mmol/L (137-145)
[2017-05-31] MEDS: FERROUS SULFATE 325 MG TABLET PO SCH (09:56)
[2017-05-31] MEDS: MULTIVITAMIN TABLET PO SCH (09:56)
[2017-05-31] MEDS: ASPIRIN 325 MG TABLET PO SCH (09:56)
[2017-05-31] MEDS: SERTRALINE HCL 50 MG TABLET PO SCH (09:56)
[2017-05-31] MEDS ORDERED: LISINOPRIL 10 MG TABLET PO SCH (10:00)
[2017-05-31] MEDS ORDERED: CLOPIDOGREL BISULFATE 75 MG TABLET PO SCH (10:00)
--- NOTE | 2017-05-31 13:53 | PDOC PROGRESS REPORT ---
Subjective Progress Note for:: 05/31/17 Subjective:: The patient is a 71-year-old female with a past medical history of previous CVA this year, intraparenchymal hemorrhage, hypothyroidism, and hypertension admitted on 05/29/17 for a complaint of altered mental status. She was noted in the emergency department to have confusion and garbled speech. Head CT showed an old infarct of the left posterior temporal and occipital cortex with no evidence of acute infarct or hemorrhage. The patient was seen on morning rounds with her present. She appears to be more alert and conversational today. She does not have trouble with stuttering or word finding today and participates fully in the conversation but does appear to become fatigued and somewhat forgetful by the end of the conversation. Overall, the patient's states that she has demonstrated improvement overnight. They are interested in short-term rehab following discharge. Otherwise there are no new questions or concerns. Reason For Visit: CVA Physical Exam Vital Signs: Temp Pulse Resp BP Pulse Ox 98.2 F 69 18 112/49 L 97 05/31/17 12:24 05/31/17 12:24 05/31/17 12:24 05/31/17 12:24 05/31/17 12:24 Intake & Output 05/30/17 05/31/17 06/01/17 06:59 06:59 06:59 Intake Total 530 0 Balance 530 0 Weight 61.9 kg General appearance: PRESENT: no acute distress, cooperative, well-developed, well-nourished Head exam: PRESENT: atraumatic, normocephalic Eye exam: PRESENT: conjunctiva pink, EOMI, PERRLA. ABSENT: scleral icterus Ear exam: PRESENT: normal external ear exam Mouth exam: PRESENT: moist, tongue midline Neck exam: ABSENT: carotid bruit, JVD, lymphadenopathy, thyromegaly Respiratory exam: PRESENT: clear to auscultation richie, symmetrical, unlabored. ABSENT: rales, rhonchi, wheezes Cardiovascular exam: PRESENT: RRR, +S1, +S2, systolic murmur. ABSENT: diastolic murmur, rubs Pulses: PRESENT: normal dorsalis pedis pul Vascular exam: PRESENT: normal capillary refill GI/Abdominal exam: PRESENT: normal bowel sounds, soft. ABSENT: distended, guarding, mass, organolmegaly, rebound, tenderness Rectal exam: PRESENT: deferred Extremities exam: PRESENT: full ROM. ABSENT: calf tenderness, clubbing, pedal edema Neurological exam: PRESENT: alert, awake, oriented to person, oriented to place , oriented to situation, CN II-XII grossly intact, other - Forgetful, improved from yesterday.. ABSENT: oriented to time, motor sensory deficit Psychiatric exam: PRESENT: appropriate affect, normal mood. ABSENT: homicidal ideation, suicidal ideation Skin exam: PRESENT: dry, intact, warm. ABSENT: cyanosis, rash Results Laboratory Results: 05/31/17 06:23 05/31/17 06:23 05/31/17 05/31/17 06:23 06:23 WBC 10.8 H RBC 3.51 L Hgb 10.1 L Hct 29.6 L MCV 84 MCH 28.8 MCHC 34.1 RDW 14.0 Plt Count 203 Sodium 139.3 Potassium 3.7 Chloride 106 Carbon Dioxide 27 Anion Gap 6 BUN 20 Creatinine 0.58 Est GFR ( Amer) > 60 Est GFR (Non-Af Amer) > 60 Glucose 80 Calcium 8.8 Impressions: Head MRI 05/29/17 00:00 IMPRESSION: 1. Mild recent infarct superimposed on chronic changes in the left temporal and occipital lobes. EVIDENCE OF ACUTE STROKE: YES. LEFT MCA Chest X-Ray 05/29/17 13:08 IMPRESSION: NO ACUTE RADIOGRAPHIC FINDING IN THE CHEST. Head CT 05/29/17 13:08 IMPRESSION: No acute findings. Stable left temporal/ occipital infarct moderate bifrontal and biparietal chronic white matter disease. EVIDENCE OF ACUTE STROKE: No Brain MRI with MRA 05/29/17 18:29 IMPRESSION: NORMAL MRA OF THE [place]. Carotid Doppler Study 05/30/17 00:00 IMPRESSION: NO HEMODYNAMICALLY SIGNIFICANT STENOSIS. Hip X-Ray 05/30/17 00:00 IMPRESSION: NEGATIVE STUDY OF THE PELVIS AND HIPS. Knee X-Ray 05/30/17 00:00 IMPRESSION: DEGENERATIVE CHANGES. NO ACUTE FINDINGS. Assessment & Plan - Diagnosis (1) CVA (cerebral vascular accident) Qualifiers: Laterality of affected vessel: left Is this a current diagnosis for this admission?: Yes Plan: The patient presented with sudden onset confusion and inability to ambulate or dress herself. However, the patient's reports that he had felt that she was "not quite herself" for approximately 3 weeks prior to this event. Initial head CT was negative and showed only her previous infarct. Follow-up head MRI showed a mild recent infarct superimposed on chronic changes in the left temporal and occipital lobes. Left MCA CVA. Brain MRI MRA showed a normal [place]. Carotid Doppler: No hemodynamically significant stenosis. Echocardiogram: Normal EF. Mild to moderate diastolic dysfunction. No cardiac source of the CVA identified. Is pending. Lipid panel is acceptable. The patient is admitted to [facility] on continuous cardiac telemetry; she has remained in normal sinus rhythm. PT/OT/ST have been consulted. We will allow for permissive hypertension; holding amlodipine and lisinopril. Blood pressures are acceptable. IV hydralazine for elevated blood pressures. Continue atorvastatin. Continue daily aspirin. We will consult discharge planning for acute rehabilitation placement. I spoke with the patient's neurology clinic today. On-call neurologist is Dr. Abel at [facility] physicians. Dr. Abel recommends aspirin for antiplatelet therapy and outpatient event monitoring. He requests that the patient make a follow-up appointment at their office sooner than their previously scheduled appointment in July. He asks to have the radiologist review her MRI for amyloid angiopathy. Dr. Hale did review the MRI and does not find evidence of this. At this time, the patient is stable for discharge to short-term rehabilitation. (2) Leukocytosis Is this a current diagnosis for this admission?: Yes Plan: Trending down; this is likely related to CVA. However, as the patient did have a three-week prodromal of fatigue and decreased mental acuity per there is a possibility of underlying infection. Urinalysis is negative for UTI. Urine culture has no growth at 1 day. No dictation for antibiotic therapy at this time. (3) Hypertension Qualifiers: Hypertension type: essential hypertension Qualified Code(s): I10 - Essential (primary) hypertension Is this a current diagnosis for this admission?: Yes Plan: The patient endorses a history of hypertension; will hold amlodipine and lisinopril as described above. Blood pressures are appropriate. IV hydralazine as needed for blood pressure control. (4) Hypothyroid Qualifiers: Hypothyroidism type: unspecified Qualified Code(s): E03.9 - Hypothyroidism , unspecified Is this a current diagnosis for this admission?: Yes Plan: Continue home dose Synthroid. (5) Anemia Is this a current diagnosis for this admission?: Yes Plan: Hgb noted to have trended down. On aspirin therapy only. No evidence of active bleeding; will obtain Hemoccult for thoroughness. We will continue to monitor. - Time Medications reviewed and adjusted accordingly: Yes Anticipated discharge: Acute Rehab Within: when bed available - Plan Summary Plan Summary: The patient is now stable for discharge to short-term rehab. The patient's family members are advised that her outpatient neurologist has requested that they attempt to schedule an appointment sooner than her one scheduled in July.
[2017-05-31] MEDS: ATORVASTATIN CALCIUM 20 MG TABLET PO SCH (22:30)
[2017-06-01 06:41] LABS: HEMOGLOBIN 10.2 g/dL (12.0-15.5); MEAN CORPUSCULAR HEMOGLOBIN 28.2 pg (27.0-33.4); MEAN CORPUSCULAR HGB CONC 33.9 g/dL (32.0-36.0); MEAN CORPUSCULAR VOLUME 83 fl (80-97); PLATELET COUNT 246 10^3/uL (150-450); RED BLOOD COUNT 3.61 10^6/uL (3.72-5.28); RED CELL DISTRIBUTION WIDTH 13.9 % (11.5-14.0); WHITE BLOOD COUNT 11.1 10^3/uL (4.0-10.5)
[2017-06-01] MEDS: HEPARIN SOD (PORCINE) 5,000 UNIT/ML 1 ML SYRINGE SUBCUT SCH ×3 (06:52→22:51)
[2017-06-01] MEDS: MULTIVITAMIN TABLET PO SCH (09:30)
[2017-06-01] MEDS: SERTRALINE HCL 50 MG TABLET PO SCH (09:30)
[2017-06-01] MEDS: FERROUS SULFATE 325 MG TABLET PO SCH (09:30)
[2017-06-01] MEDS: ASPIRIN 81 MG TABLET, CHEWABLE PO SCH (09:30)
--- NOTE | 2017-06-01 10:37 | RADIOLOGY REPORT (SQ) ---
EXAM DESCRIPTION: CT HEAD WITHOUT COMPLETED DATE/TIME: 06/01/2017 10:19 am REASON FOR STUDY: Sudden sorsening mental status; recent CVA (L MCA) I67.9 CEREBROVASCULAR DISEASE, UNSPECIFIED I25.6 SILENT MYOCARDIAL ISCHEMIA D64.9 ANEMIA, UNSPECIFIED COMPARISON: CT brain 05/30/2016, 07/21/2016, 08/20/2016, 05/29/2017 MRI brain 05/29/2017 TECHNIQUE: Axial images acquired through the brain without intravenous contrast. Images reviewed wi th bone, brain and subdural windows. Additional sagittal and coronal reconstructions were generated. Images stored on PACS. All CT scanners at this facility use dose modulation, iterative reconstruction, and/or weight based d osing when appropriate to reduce radiation dose to as low as reasonably achievable (ALARA). [facility]: Dose Right [facility]: CareDose [facility]: Dose Right [facility]: Teradose 4D [facility]: [employer] RADIATION DOSE: CT Rad equipment meets quality standard of care and radiation dose reduction techniq ues were employed. CTDIvol: 48.7 mGy. DLP: 1004 mGy-cm. mGy. LIMITATIONS: None. FINDINGS: VENTRICLES: Normal size and contour. CEREBRUM: Patient had a hemorrhagic left posterior temporal infarct in August of 2016. On today's stud y, there is a broad area of encephalomalacia throughout the left lateral and posterior temporal lobe extending into the occipital lobe. Overall extent of this infarct is similar compared to 08/20/2016. It is better visualized today due to encephalomalacia. Findings described on MRI brain 05/29/2017, on diffusion imaging left temporal lobe tracking into the o ccipital region, this likely represents artifact from evolving hemorrhagic products in the chronic in farky. Remainder of the cerebrum is otherwise unremarkable aside from spotty bifrontal and biparietal small vessel ischemic change. These findings were discussed with Rebekah YEUNG at the time of dictation CEREBELLUM: No masses. No hemorrhage. No alteration of density. No evidence for acute infarction. EXTRAAXIAL SPACES: No fluid collections. No masses. ORBITS AND GLOBE: No intra- or extraconal masses. Normal contour of globe without masses. CALVARIUM: No fracture. PARANASAL SINUSES: No fluid or mucosal thickening. SOFT TISSUES: No mass or hematoma. OTHER: No other significant finding. IMPRESSION: Old infarct left temporal and occipital lobes. No acute findings. EVIDENCE OF ACUTE STROKE: No COMMENT: Quality ID # [id number]: Final reports with documentation of one or more dose reduction techniques (e.g., Automated exposure control, adjustment of the mA and/or kV according to patient size, use of iterative reconstruction technique) TECHNICAL DOCUMENTATION: JOB ID: [id number] [employer]- All Rights Reserved Reading location - IP/workstation name: [email or web address] [id number]
--- NOTE | 2017-06-01 12:52 | RADIOLOGY REPORT (SQ) ---
EXAM DESCRIPTION: CHEST SINGLE VIEW COMPLETED DATE/TIME: 06/01/2017 12:38 pm REASON FOR STUDY: rhonchi COMPARISON: AP chest 05/29/2017, 07/21/2016 EXAM PARAMETERS: NUMBER OF VIEWS: One view. TECHNIQUE: Single frontal radiographic view of the chest acquired. RADIATION DOSE: NA LIMITATIONS: None. FINDINGS: LUNGS AND PLEURA: No opacities, masses or pneumothorax. No pleural effusion. MEDIASTINUM AND HILAR STRUCTURES: No masses. Contour normal. HEART AND VASCULAR STRUCTURES: Heart normal in size. Normal vasculature. BONES: No acute findings. HARDWARE: None in the chest. OTHER: No other significant finding. IMPRESSION: NO ACUTE RADIOGRAPHIC FINDING IN THE CHEST. TECHNICAL DOCUMENTATION: JOB ID: [id number] [employer]- All Rights Reserved Reading location - IP/workstation name: [email or web address]
[2017-06-01] MEDS: AMOXICILLIN TR/POT CLAVULANATE 500-125 MG TAB PO SCH ×2 (13:31→22:51)
--- NOTE | 2017-06-01 14:16 | PDOC PROGRESS REPORT ---
Subjective Progress Note for:: 06/01/17 Subjective:: The patient is a 71-year-old female with a past medical history of previous CVA this year, intraparenchymal hemorrhage, hypothyroidism, and hypertension admitted on 05/29/17 for a complaint of altered mental status. She was noted in the emergency department to have confusion and garbled speech. Head CT showed an old infarct of the left posterior temporal and occipital cortex with no evidence of acute infarct or hemorrhage. The patient was seen on morning rounds with her present. Overnight, the patient became acutely confused and agitated. She had to be moved to a room closer to nursing station for one-to-one supervision. This morning, the patient remained disoriented to self, place, time, situation per nursing staff. This slowly improved over the course of the morning and then rapidly improved once her arrived. By the time I was in the room to see the patient this morning, she had returned to her baseline mental status and was oriented to self, place, president, and recent events. She does report some rhinorrhea, sore throat, and left maxillary tenderness with palpation today. She is noted to have slight expiratory wheezing and rhonchi bilaterally. Otherwise, she has no new complaints. Reason For Visit: CVA Physical Exam Vital Signs: Temp Pulse Resp BP Pulse Ox 98.8 F 67 16 99/66 L 98 06/01/17 11:52 06/01/17 11:52 06/01/17 11:52 06/01/17 11:52 06/01/17 11:52 Intake & Output 05/31/17 06/01/17 06/02/17 06:59 06:59 06:59 Intake Total 530 40 Balance 530 40 Weight 61.9 kg 61.6 kg General appearance: PRESENT: no acute distress, well-developed, well-nourished Head exam: PRESENT: atraumatic, normocephalic Eye exam: PRESENT: conjunctiva pink, EOMI, PERRLA. ABSENT: scleral icterus Ear exam: PRESENT: normal external ear exam Mouth exam: PRESENT: moist, tongue midline Neck exam: ABSENT: carotid bruit, JVD, lymphadenopathy, thyromegaly Respiratory exam: PRESENT: rhonchi, symmetrical, unlabored, wheezes - Slight expiratory wheezing. ABSENT: rales Cardiovascular exam: PRESENT: RRR, +S1, +S2, systolic murmur. ABSENT: diastolic murmur, rubs Pulses: PRESENT: normal dorsalis pedis pul Vascular exam: PRESENT: normal capillary refill GI/Abdominal exam: PRESENT: normal bowel sounds, soft. ABSENT: distended, guarding, mass, organolmegaly, rebound, tenderness Rectal exam: PRESENT: deferred Extremities exam: PRESENT: full ROM. ABSENT: calf tenderness, clubbing, pedal edema Neurological exam: PRESENT: alert, awake, oriented to person, oriented to place , oriented to time, oriented to situation, CN II-XII grossly intact. ABSENT: motor sensory deficit Psychiatric exam: PRESENT: appropriate affect, normal mood. ABSENT: homicidal ideation, suicidal ideation Skin exam: PRESENT: dry, intact, warm. ABSENT: cyanosis, rash Results Laboratory Results: 06/01/17 05:36 05/31/17 06:23 06/01/17 05:36 WBC 11.1 H RBC 3.61 L Hgb 10.2 L Hct 30.0 L MCV 83 MCH 28.2 MCHC 33.9 RDW 13.9 Plt Count 246 Impressions: Head MRI 05/29/17 00:00 IMPRESSION: 1. Mild recent infarct superimposed on chronic changes in the left temporal and occipital lobes. EVIDENCE OF ACUTE STROKE: YES. LEFT MCA Brain MRI with MRA 05/29/17 18:29 IMPRESSION: NORMAL MRA OF THE ALUTIIQ OF ALY. Carotid Doppler Study 05/30/17 00:00 IMPRESSION: NO HEMODYNAMICALLY SIGNIFICANT STENOSIS. Hip X-Ray 05/30/17 00:00 IMPRESSION: NEGATIVE STUDY OF THE PELVIS AND HIPS. Knee X-Ray 05/30/17 00:00 IMPRESSION: DEGENERATIVE CHANGES. NO ACUTE FINDINGS. Chest X-Ray 06/01/17 00:00 IMPRESSION: NO ACUTE RADIOGRAPHIC FINDING IN THE CHEST. Head CT 06/01/17 00:00 IMPRESSION: Old infarct left temporal and occipital lobes. No acute findings. EVIDENCE OF ACUTE STROKE: No Assessment & Plan - Diagnosis (1) Confusion and disorientation Is this a current diagnosis for this admission?: Yes Plan: Likely multifactorial; TIA versus hypotension versus infectious process. Stroke workup ultimately determined to be negative. She does have a rather recent history of intracranial hemorrhage. Per the patient's , she has been intermittently disoriented and progressively worsening over the previous 6 months. This raises the possibility of vascular dementia. I discussed this with the in detail. The patient's home hypertensive medications have been held this admission due to relatively low blood pressures. The patient may also have been experiencing profound hypotension at home further contributing to her confusion and disoriented. The also reports a 3 week prodrome of fatigue, weakness, and decreased mental acuity. Patient is now reporting rhinorrhea, sore throat, axillary sinus tenderness. Will place the patient on Augmentin for coverage of sinusitis. She is also noted to have a expiratory wheeze and rhonchi; patient may be experiencing a mild bronchitis as well. We will continue to monitor and provide for patient safety. (2) CVA (cerebral vascular accident) Qualifiers: Laterality of affected vessel: left Is this a current diagnosis for this admission?: Yes Plan: The patient has been determined not to have had a recent CVA event. She does have a history of hemorrhagic stroke from July 2016. The patient did present with sudden onset confusion and inability to ambulate or dress herself. She was admitted for TIA/CVA workup. Follow-up head MRI showed a mild recent infarct superimposed on chronic changes in the left temporal and occipital lobes. Left MCA CVA. Brain MRI MRA showed a normal beaver of Aly. Carotid Doppler: No hemodynamically significant stenosis. Echocardiogram: Normal EF. Mild to moderate diastolic dysfunction. No cardiac source of the CVA identified. Is pending. Lipid panel is acceptable. Repeat head CT today is negative for acute events. This prompted Dr. Hale to review her recent studies. Dr. Hale contacted me to inform me that she did not feel that the MRI from this admission showed a new left MCA distribution stroke, but rather was hemoglobin artifact from her previous intraparenchymal hemorrhage. The patient is admitted to [facility] on continuous cardiac telemetry; she has remained in normal sinus rhythm. PT/OT/ST have been consulted. Holding amlodipine and lisinopril. Blood pressures are acceptable. IV hydralazine for elevated blood pressures. Continue atorvastatin. Continue daily aspirin. We will consult discharge planning for acute rehabilitation placement. I spoke with the patient's neurology clinic yesterday, prior to our radiologist read review of imaging studies. Dr. Abel recommends aspirin for antiplatelet therapy and outpatient event monitoring. He requests that the patient make a follow-up appointment at their office sooner than their previously scheduled appointment in July. He asks to have the radiologist review her MRI for amyloid angiopathy. Dr. Hale did review the MRI and does not find evidence of this. (3) Leukocytosis Is this a current diagnosis for this admission?: Yes Plan: Trending down. The patient did have a three-week prodromal of fatigue and decreased mental acuity per there is a possibility of underlying infection. The patient is now complaining of rhinorrhea, sore throat, and left maxillary tenderness. Urinalysis is negative for UTI. Urine culture has no growth at 1 day. Given the patient's prior vague symptoms lasting greater than 3 weeks with new URI symptoms, leukocytosis, and low-grade temperature, will place the patient on Augmentin for treatment of sinusitis. (4) Hypertension Qualifiers: Hypertension type: essential hypertension Qualified Code(s): I10 - Essential (primary) hypertension Is this a current diagnosis for this admission?: Yes Plan: The patient endorses a history of hypertension; however, the patient's blood pressures have actually been well controlled while holding amlodipine and lisinopril. The patient likely does not require these medications at her previous dosing; hypotension may have contributed to the patient's encephalopathy. (5) Hypothyroid Qualifiers: Hypothyroidism type: unspecified Qualified Code(s): E03.9 - Hypothyroidism , unspecified Is this a current diagnosis for this admission?: Yes Plan: Continue home dose Synthroid. (6) Anemia Is this a current diagnosis for this admission?: Yes Plan: Hgb stable. On aspirin therapy only. No evidence of active bleeding; will obtain Hemoccult for thoroughness. We will continue to monitor. - Time Time Spent with patient: 35 or more minutes Medications reviewed and adjusted accordingly: Yes Anticipated discharge: Acute Rehab Within: within 24 hours - Plan Summary Plan Summary: Have started patient on p.o. augmentin. Will monitor overnight; should fever and leukocytosis continue to trend down, she will be safe for d/c to SNF for short term rehabilitation.
[2017-06-01 14:42] LABS: APPEARANCE,URINE CLOUDY; BILIRUBIN,URINE NEGATIVE (NEGATIVE); GLUCOSE, URINE NEGATIVE (NEGATIVE); KETONES,URINE NEGATIVE (NEGATIVE); LEUKOCYTE ESTERASE,URINE MODERATE (NEGATIVE); NITRITE,URINE NEGATIVE (NEGATIVE); PROTEIN,URINE NEGATIVE (NEGATIVE); URINE SPECIFIC GRAVITY 1.016
[2017-06-01 14:43] LABS: COLOR,URINE DARK YELLOW
--- NOTE | 2017-06-01 15:23 | Physician Advisory Note ---
Physician Advisor ProgressNote .: Pursuant to the plan for [facility], I have reviewed the medical record for this patient. Physician Advisor Statement: Please be sure to specify if you suspect a diagosis of "acute sinusitis" &/or "acute bronchitis", or if you are simply "covering for" 1 or both of them ( seems like just semantics, but coders aren't allowed to code for what is not explicitly diagnosed, & it's the type of thing payers jump on to refuse appropriate payment). Also, please consider documenting, if you agree: 1. "AMS was due to acute metabolic encephalopathy due to hypotension & infection causing Acute cerebrovascular insufficiency" Thanks! CK
[2017-06-01] MEDS: ATORVASTATIN CALCIUM 20 MG TABLET PO SCH (22:51)
[2017-06-02] MEDS: AMOXICILLIN TR/POT CLAVULANATE 500-125 MG TAB PO SCH ×2 (05:47→13:42)
[2017-06-02 05:49] LABS: HEMATOCRIT 31.2 % (36.0-47.0); HEMOGLOBIN 10.7 g/dL (12.0-15.5); MEAN CORPUSCULAR HEMOGLOBIN 28.6 pg (27.0-33.4); MEAN CORPUSCULAR HGB CONC 34.2 g/dL (32.0-36.0); MEAN CORPUSCULAR VOLUME 84 fl (80-97); PLATELET COUNT 285 10^3/uL (150-450); RED BLOOD COUNT 3.73 10^6/uL (3.72-5.28); RED CELL DISTRIBUTION WIDTH 14.1 % (11.5-14.0); WHITE BLOOD COUNT 9.6 10^3/uL (4.0-10.5)
[2017-06-02] MEDS: HEPARIN SOD (PORCINE) 5,000 UNIT/ML 1 ML SYRINGE SUBCUT SCH ×2 (05:51→13:42)
[2017-06-02] MEDS: MULTIVITAMIN TABLET PO SCH (09:17)
[2017-06-02] MEDS: FERROUS SULFATE 325 MG TABLET PO SCH (09:17)
[2017-06-02] MEDS: SERTRALINE HCL 50 MG TABLET PO SCH (09:17)
[2017-06-02] MEDS: ASPIRIN 81 MG TABLET, CHEWABLE PO SCH (09:17)
[2017-06-02 14:27] VITALS: BP 112/38
--- NOTE | 2017-06-02 14:27 | PDOC DISCHARGE SUMMARY ---
General - Admit/Disc Date/PCP Admission Date/Primary Care Provider: 05/30/17 13:27 Discharge Date: 06/02/17 - Discharge Diagnosis (1) Acute metabolic encephalopathy Is this a current diagnosis for this admission?: Yes Summary: Altered mental status was due to acute metabolic encephalopathy as a result of hypotension and infection causing acute cerebral vascular insufficiency in the setting of previous CVA. The probability of vascular dementia is also considered. The patient's home medications were held due to relatively low blood pressures; upon discharge it is recommended that the patient does not resume these medications until her follow-up with primary care provider as she may not require these medications or requires lower dosing. As the patient's also reported a 3 week prodrome of fatigue, weakness, decreased mental acuity, and vague upper respiratory symptoms and the patient is now presenting with rhinorrhea, postnasal drip, and expiratory wheezing she is placed on Augmentin for bronchitis. The patient continues to have intermittent episodes of confusion and disorientation. These episodes are less frequent and severe when family members are present. The patient and family members were offered a discharge to shelter facility for short-term rehabilitation, however, it is felt that the patient's disorientation will improve if she returns to her home environment. Family members feel comfortable with discharge to home with home health services. They are advised to follow-up with her primary care provider or neurologist should symptoms not improve or continue to decline. They are advised to return to the emergency department for symptoms concerning for stroke. (2) CVA (cerebral vascular accident) Is this a current diagnosis for this admission?: Yes Summary: The patient has been determined not to have had a recent CVA event. She does have a history of hemorrhagic stroke from July 2016. The patient did present with sudden onset confusion and inability to ambulate or dress herself. She was admitted for TIA/CVA workup. Follow-up head MRI showed a mild recent infarct superimposed on chronic changes in the left temporal and occipital lobes. Left MCA CVA. Brain MRI MRA showed a normal tunica-biloxi of Aly. Carotid Doppler: No hemodynamically significant stenosis. Echocardiogram: Normal EF. Mild to moderate diastolic dysfunction. No cardiac source of the CVA identified. Is pending. Lipid panel is acceptable. Repeat head CT is negative for acute events. This prompted the radiologist to review her recent studies. Dr. Hale contacted me to inform me that she did not feel that the MRI from this admission showed a new left MCA distribution stroke, but rather was hemoglobin artifact from her previous intraparenchymal hemorrhage. I spoke with the patient's neurology clinic, prior to our radiologist re-review of imaging studies. Dr. Abel recommends aspirin for antiplatelet therapy and outpatient event monitoring. He requests that the patient make a follow-up appointment at their office sooner than their previously scheduled appointment in July. He asks to have the radiologist review her MRI for amyloid angiopathy. Dr. Hale did review the MRI and does not find evidence of this. (3) Leukocytosis Is this a current diagnosis for this admission?: Yes Summary: Resolved; secondary to bronchitis. (4) Hypertension Is this a current diagnosis for this admission?: Yes Summary: The patient endorses a history of hypertension. Her home medications included lisinopril and amlodipine. These medications were held secondary to relatively low blood pressures. The patient remained normotensive throughout her admission without antihypertensives. (5) Hypothyroid Is this a current diagnosis for this admission?: Yes (6) Anemia Is this a current diagnosis for this admission?: Yes Summary: Hgb stable at 10.7. Recommend routine follow-up and consideration of anemia studies by her primary care provider. - Additional Information Resuscitation Status: Full Code Discharge Diet: Cardiac Discharge Activity: Activity As Tolerated, Balance Activity w/Rest Prescriptions: Amox Tr/Potassium Clavulanate [Augmentin "500" Tablet] 1 tab PO Q8 #30 tablet Aspirin [Aspirin 81 mg Chewable Tablet] 81 mg PO DAILY #90 tab.chew Atorvastatin Calcium [Lipitor 20 mg Tablet] 20 mg PO QHS #30 tablet Home Medications: Ferrous Sulfate [Feosol 325 mg Tablet] 325 mg PO DAILY 05/29/17 Multivit,Tx with Iron,Minerals [Thera-M] 1 tab PO DAILY 05/29/17 Sertraline HCl [Zoloft 50 mg Tablet] 50 mg PO DAILY 05/29/17 Acetaminophen [Tylenol 325 mg Tablet] 325 mg PO Q4HP PRN tablet 06/02/17 Amox Tr/Potassium Clavulanate [Augmentin "500" Tablet] 1 tab PO Q8 #30 tablet 06/02/17 Aspirin [Aspirin 81 mg Chewable Tablet] 81 mg PO DAILY #90 tab.chew 06/02/17 Atorvastatin Calcium [Lipitor 20 mg Tablet] 20 mg PO QHS #30 tablet 04/13/18 History of Present Illness History of Present Illness: Per H&P by Ana Fang NP-C: PETEY MATA is a 71 year old female who presented to the emergency department for confusion and generalized weakness. The patient's reports that the patient has been increasingly confused over the last 2 days, but when he attempted to wake her up this morning at 0830 she did not know where she was, she did not know her name, she could barely sit up on the side of the bed, nor could she attempts to dress herself. He has been then attempted to walk her out to the car to bring her to the emergency department, when she had a syncopal episode. was able to catch his . No head trauma, he was able to lower her to the ground. EMS was called. The patient presented to the ED with confusion and garbled speech. Head CT shows old infarct in the left posterior temporal and occipital cortex, no evidence of acute infarct or hemorrhage. Of note, the patient presented with similar symptoms in July 2016. She was admitted to [facility] for TIA. Within 24 hours she was complaining of a headache. Head CT showed intraparenchymal hemorrhage, requiring transfer to [facility]. EKG showed normal sinus rhythm, no evidence of ischemia or acute infarction. The patient's symptoms resolved significantly while she was in the emergency department. Upon assessment her speech is clear, she is alert and oriented to person, place, time, but is unclear about why she is at the hospital. The patient has equal strength in all 4 extremities, no evidence of facial droop, PERRLA, denies paresthesia, mild dysmetria and poor fine motor control with both hands, patient has difficulty with pantomime, and has R hemianopia. According to the patient's , all of her deficits are residuals from her previous stroke. She has no new deficits upon exam. PMH includes TIA, intraparenchymal hemorrhage, hypothyroid, hypertension PMD: Dr. Cristian Raza Neurologist: [facility] Physical Exam Vital Signs: Temp Pulse Resp BP Pulse Ox 97.5 F 66 16 127/54 H 100 06/02/17 07:40 06/02/17 14:00 06/02/17 07:40 06/02/17 07:40 06/02/17 07:40 Intake & Output 06/01/17 06/02/17 06/03/17 06:59 06:59 06:59 Intake Total 40 779 473 Output Total 0 2 Balance 40 779 471 Weight 61.6 kg 61.5 kg General appearance: PRESENT: no acute distress, well-developed, well-nourished Head exam: PRESENT: atraumatic, normocephalic Eye exam: PRESENT: conjunctiva pink, EOMI, PERRLA. ABSENT: scleral icterus Ear exam: PRESENT: normal external ear exam Mouth exam: PRESENT: moist, tongue midline Neck exam: ABSENT: carotid bruit, JVD, lymphadenopathy, thyromegaly Respiratory exam: PRESENT: clear to auscultation richie. ABSENT: rales, rhonchi, wheezes Cardiovascular exam: PRESENT: RRR. ABSENT: diastolic murmur, rubs, systolic murmur Pulses: PRESENT: normal dorsalis pedis pul Vascular exam: PRESENT: normal capillary refill GI/Abdominal exam: PRESENT: normal bowel sounds, soft. ABSENT: distended, guarding, mass, organolmegaly, rebound, tenderness Rectal exam: PRESENT: deferred Extremities exam: PRESENT: full ROM. ABSENT: calf tenderness, clubbing, pedal edema Neurological exam: PRESENT: alert, awake, oriented to person, CN II-XII grossly intact, other - The patient was initially oriented to herself only; this improved immediately upon arrival of her and she became oriented to self , place, president, but not situation.. ABSENT: oriented to place, oriented to time, oriented to situation, motor sensory deficit Psychiatric exam: PRESENT: appropriate affect, normal mood. ABSENT: homicidal ideation, suicidal ideation Skin exam: PRESENT: dry, intact, warm. ABSENT: cyanosis, rash Results Laboratory Results: 06/02/17 05:16 05/31/17 06:23 06/01/17 06/02/17 13:44 05:16 WBC 9.6 RBC 3.73 Hgb 10.7 L Hct 31.2 L MCV 84 MCH 28.6 MCHC 34.2 RDW 14.1 H Plt Count 285 Urine Color DARK YELLOW Urine Appearance CLOUDY Urine pH 7.0 Ur Specific [place] 1.016 Urine Protein NEGATIVE Urine Glucose (UA) NEGATIVE Urine Ketones NEGATIVE Urine Blood NEGATIVE Urine Nitrite NEGATIVE Ur Leukocyte Esterase MODERATE H Urine WBC (Auto) 29 Urine RBC (Auto) 4 Impressions: Head MRI 05/29/17 00:00 IMPRESSION: 1. Mild recent infarct superimposed on chronic changes in the left temporal and occipital lobes. EVIDENCE OF ACUTE STROKE: YES. LEFT MCA Brain MRI with MRA 05/29/17 18:29 IMPRESSION: NORMAL MRA OF THE MCGRATH OF ALY. Carotid Doppler Study 05/30/17 00:00 IMPRESSION: NO HEMODYNAMICALLY SIGNIFICANT STENOSIS. Hip X-Ray 05/30/17 00:00 IMPRESSION: NEGATIVE STUDY OF THE PELVIS AND HIPS. Knee X-Ray 05/30/17 00:00 IMPRESSION: DEGENERATIVE CHANGES. NO ACUTE FINDINGS. Chest X-Ray 06/01/17 00:00 IMPRESSION: NO ACUTE RADIOGRAPHIC FINDING IN THE CHEST. Head CT 06/01/17 00:00 IMPRESSION: Old infarct left temporal and occipital lobes. No acute findings. EVIDENCE OF ACUTE STROKE: No Qualifiers - * PATEINT BEING DISCHARGED WITH ANY OF THE FOLLOWING DIAGNOSIS?: Stroke Stroke Pt being discharged on Anti-thrombolytic therapy?: Yes Stroke Pt being discharged on Anti-coagulation therapy?: No Reason(s) for not prescribing Anti-coagulation therapy:: Medical Contraindication Stroke Pt being discharged on Statins?: Yes
== END 2017-06-02 15:39 | disposition home health service (06) | DRG 69 ==
LOC: ER 12:13 → EH 15:20 → 3W 21:49 → OBSVTOIN 05-30 13:27 → 3S 05-31 18:31
PROVIDERS: ADMIT Family Medicine; ATTEND Family Medicine
DX: I67.81 Acute cerebrovascular insufficiency (principal); G93.41 Metabolic encephalopathy; R47.01 Aphasia; I10 Essential (primary) hypertension; E03.9 Hypothyroidism, unspecified; J40 Bronchitis, not specified as acute or chronic; D64.9 Anemia, unspecified; R41.82 Altered mental status, unspecified; I95.9 Hypotension, unspecified; K44.9 Diaphragmatic hernia without obstruction or gangrene; M13.861 Other specified arthritis, right knee; M13.841 Other specified arthritis, right hand; D72.829 Elevated white blood cell count, unspecified; I69.398 Other sequelae of cerebral infarction; R27.8 Other lack of coordination; H53.47 Heteronymous bilateral field defects; Z90.49 Acquired absence of other specified parts of digestive tract; Z87.891 Personal history of nicotine dependence; Z79.899 Other long term (current) drug therapy; Z79.82 Long term (current) use of aspirin; Z82.0 Family history of epilepsy and other diseases of the nervous system; Z80.9 Family history of malignant neoplasm, unspecified
CPT/HCPCS: 36415; 51701; 70450; 70544; 70551; 71045; 73522; 80048; 80053; 80061; 81001; 85025; 85027; 87040; 87086; 93005; 93010; 93306; 93880; 99285; G0378; G8978-GP; G8979-GP; J1644; J3490

== ENCOUNTER 2017-06-06 09:11 | Inpatient (IN) | payer MEDICARE, OTHER ==
[2017-06-06] MEDS ORDERED: ONDANSETRON 4 MG TAB.RAPDIS ONE (09:32)
[2017-06-06 09:57] LABS: INTERNATIONAL RATION (INR) 1.13; PROTHROMBIN TIME 15.1 SEC (11.4-15.4)
[2017-06-06 10:07] LABS: HEMATOCRIT 38.1 % (36.0-47.0); HEMOGLOBIN 12.2 g/dL (12.0-15.5); MEAN CORPUSCULAR HEMOGLOBIN 27.5 pg (27.0-33.4); MEAN CORPUSCULAR VOLUME 86 fl (80-97); PLATELET COUNT 630 10^3/uL (150-450); RED BLOOD COUNT 4.42 10^6/uL (3.72-5.28); RED CELL DISTRIBUTION WIDTH 14.8 % (11.5-14.0)
[2017-06-06 10:14] LABS: WHITE BLOOD COUNT 34.6 10^3/uL (4.0-10.5)
[2017-06-06] MEDS ORDERED: CEFTRIAXONE INJ 1000 MG VIAL IV ONE (10:24)
[2017-06-06 10:26] LABS: ABSOLUTE LYMPHOCYTES# (MANUAL) 4.2 10^3/uL (0.5-4.7); ABSOLUTE MONOCYTES # (MANUAL) 0.3 10^3/uL (0.1-1.4); ABSOLUTE NEUTROPHILS# (MANUAL) 30.1 10^3/uL (1.7-8.2); BAND NEUTROPHILS % (MANUAL) 1 % (3-5); BASOPHILS % (MANUAL) 0 % (0-2); EOSINOPHILS % (MANUAL) 0 % (0-6); LYMPHOCYTES % (MANUAL) 12 % (13-45); METAMYELOCYTES % (MANUAL) 1 % (0); MONOCYTES % (MANUAL) 1 % (3-13); POLYCHROMASIA SLIGHT; SEGMENTED NEUTROPHILS % (MAN) 85 % (42-78); TOTAL CELLS COUNTED 100; TOXIC GRANULATION SLIGHT; TOXIC VACUOLATION PRESENT
[2017-06-06 10:27] LABS: ACANTHOCYTES SLIGHT; BURR CELLS SLIGHT; OVALOCYTES 1+; PLATELET COMMENT INCREASED; POIKILOCYTOSIS 2+; SCHISTOCYTES SLIGHT; TEAR DROP CELLS SLIGHT
[2017-06-06 10:28] LABS: ALANINE AMINOTRANSFERASE 47 U/L (9-52); ALBUMIN 2.7 g/dL (3.5-5.0); ALKALINE PHOSPHATASE 171 U/L (38-126); ANION GAP 17 (5-19); ASPARTATE AMINO TRANSFERASE 80 U/L (14-36); BILIRUBIN,DIRECT 0.9 mg/dL (0.0-0.4); BILIRUBIN,TOTAL 1.2 mg/dL (0.2-1.3); BLOOD UREA NITROGEN 16 mg/dL (7-20); CALCIUM 9.9 mg/dL (8.4-10.2); CARBON DIOXIDE 20 mmol/L (22-30); CHLORIDE 102 mmol/L (98-107); CREATINE KINASE 128 U/L (30-135); GLUCOSE 142 mg/dL (75-110); POTASSIUM 4.7 mmol/L (3.6-5.0); SODIUM 138.5 mmol/L (137-145); TOTAL PROTEIN 5.6 g/dL (6.3-8.2)
--- NOTE | 2017-06-06 10:33 | RADIOLOGY REPORT (SQ) ---
EXAM DESCRIPTION: CHEST SINGLE VIEW COMPLETED DATE/TIME: 06/06/2017 9:58 am REASON FOR STUDY: altered COMPARISON: Chest films 06/01/2017, 05/29/2017 EXAM PARAMETERS: NUMBER OF VIEWS: One view. TECHNIQUE: Single frontal radiographic view of the chest acquired. RADIATION DOSE: NA LIMITATIONS: Artifact from sheets and EKG leads over the patient FINDINGS: LUNGS AND PLEURA: No opacities, masses or pneumothorax. No pleural effusion. MEDIASTINUM AND HILAR STRUCTURES: No masses. Contour normal. HEART AND VASCULAR STRUCTURES: Heart normal in size. Normal vasculature. BONES: No acute findings. HARDWARE: None in the chest. OTHER: No other significant finding. IMPRESSION: NO ACUTE RADIOGRAPHIC FINDING IN THE CHEST. TECHNICAL DOCUMENTATION: JOB ID: [id number] [employer]- All Rights Reserved Reading location - IP/workstation name: [email or web address]
--- NOTE | 2017-06-06 10:35 | RADIOLOGY REPORT (SQ) ---
EXAM DESCRIPTION: CT HEAD WITHOUT COMPLETED DATE/TIME: 06/06/2017 9:58 am REASON FOR STUDY: altered COMPARISON: MRI brain 05/29/2017 CT brain 06/01/2017, 05/29/2017, 08/20/2016, 05/30/2016 TECHNIQUE: Axial images acquired through the brain without intravenous contrast. Images reviewed wi th bone, brain and subdural windows. Additional sagittal and coronal reconstructions were generated. Images stored on PACS. All CT scanners at this facility use dose modulation, iterative reconstruction, and/or weight based d osing when appropriate to reduce radiation dose to as low as reasonably achievable (ALARA). [facility]: Dose Right [facility]: CareDose [facility]: Dose Right [facility]: Teradose 4D [facility]: Smart Playto RADIATION DOSE: CT Rad equipment meets quality standard of care and radiation dose reduction techniq ues were employed. CTDIvol: 53.2 mGy. DLP: 2247 mGy-cm. mGy. LIMITATIONS: Motion artifact FINDINGS: Motion artifact, patient scanned twice. On images without motion, no gross CT evidence of acute intracranial hemorrhage, acute ischemic padilla e, mass effect, or midline shift. An old infarct is present in the left posterior temporal/occipital region. Bifrontal and biparietal chronic appearing small vessel white matter disease is present. IMPRESSION: Limited study. No acute findings. 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 COMMENT: Quality ID # [id number]: Final reports with documentation of one or more dose reduction techniques (e.g., Automated exposure control, adjustment of the mA and/or kV according to patient size, use of iterative reconstruction technique) TECHNICAL DOCUMENTATION: JOB ID: [id number] [employer]- All Rights Reserved Reading location - IP/workstation name: [email or web address]
[2017-06-06 10:39] LABS: CREATINE KINASE MB < 0.22 ng/mL (<4.55); TROPONIN I < 0.012 ng/mL
--- NOTE | 2017-06-06 10:59 | ER Document Report ---
ED General - General Chief Complaint: S/S of Possible Stroke Stated Complaint: STROKE ALERT Time Seen by Provider: 06/06/17 09:15 Mode of Arrival: Ambulatory Information source: Patient Notes: 72 yr old female hx of cva presents with complaints of confusion drowsiness. Pt denies any fevers or chills. family notes she has not been eating, has had diarrhea.pt recently dc from hospital for confusion and possible cva. TRAVEL OUTSIDE OF THE [place] IN LAST 30 DAYS: No - HPI Onset: This morning Onset/Duration: Worse Quality of pain: No pain Severity: Moderate Pain Level: Denies Associated symptoms: Weakness Exacerbated by: Denies Relieved by: Denies Similar symptoms previously: Yes Recently seen / treated by doctor: Yes - Related Data Allergies/Adverse Reactions: No Known Allergies Allergy (Verified 06/06/17 10:25) Past Medical History - Social History Smoking Status: Never Smoker Cigarette use (# per day): No Chew tobacco use (# tins/day): No Smoking Education Provided: No Frequency of alcohol use: None Drug Abuse: None Family History: Reviewed & Not Pertinent. 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 Denies: Hx Ulcer Musculoskeltal Medical History: Reports Hx Arthritis - RIGHT HAND AND RIGHT KNEE Infectious Medical History: Reports: Hx Hepatitis - HEP B 73/REMISSION Past Surgical History: Reports: Hx Cholecystectomy. Denies: Hx Hysterectomy, Hx Mastectomy, Hx Open Heart Surgery, Hx Pacemaker - Immunizations Hx Diphtheria, Pertussis, Tetanus Vaccination: Yes Hx Pneumococcal Vaccination: 11/20/14 Review of Systems - Review of Systems Notes: PHYSICAL EXAMINATION: GENERAL: ill appearing female , elderly, awake but no responding to questions HEAD: Atraumatic, normocephalic. EYES: Pupils equal round and reactive to light, extraocular movements intact, conjunctiva are normal. ENT: Nares patent, oropharynx clear without exudates. Moist mucous membranes. NECK: Normal range of motion, supple without lymphadenopathy LUNGS: Breath sounds clear to auscultation bilaterally and equal. No wheezes rales or rhonchi. HEART: tachycardic ABDOMEN: Soft, nontender, nondistended abdomen. No guarding, no rebound. No masses appreciated. covered in diarrhea Female : deferred Musculoskeletal: moving upper extremities NEUROLOGICAL: GCS 11 SKIN: cold to touch -: Yes ROS unobtainable due to patient's medical condition Physical Exam - Vital signs Vitals: Temp Resp Pulse Ox 97.7 F 32 H 100 06/06/17 09:14 06/06/17 09:14 06/06/17 09:14 Course - Re-evaluation Re-evalutation: 06/06/17 11:36 Patient is noted to be awake but she is not oriented to person place or time, she is unable to recognize family members were in the room, CT of the head emergently performed but I believe this is more of infectious process, CT head showed a previous CVA no acute abnormality, chest x-ray was -2 view. Garcia has been placed urinalysis is pending, patient is noted to have a significant white count, she has no fever therefore I do not believe this is meningitis at this time and given the recent admission and had extensive diarrhea I believe this may be more C. difficile but a stool culture has not been obtained therefore I will start her on Rocephin immediately the covers her sepsis while I wait actual diagnosis Patient is noted to be hypotensive IV fluid boluses have been ordered - Vital Signs Vital signs: Temp Pulse Resp BP Pulse Ox 97.7 F 18 114/48 L 100 06/06/17 09:14 06/06/17 10:41 06/06/17 10:41 06/06/17 10:40 - Laboratory Result Diagrams: 06/06/17 09:41 06/06/17 09:41 Laboratory results interpreted by me: 06/06/17 06/06/17 09:41 09:41 WBC 34.6 H* RDW 14.8 H Plt Count 630 H Seg Neuts % (Manual) 85 H Band Neutrophils % 1 L Lymphocytes % (Manual) 12 L Monocytes % (Manual) 1 L Metamyelocytes % 1 H Abs Neuts (Manual) 30.1 H Carbon Dioxide 20 L Glucose 142 H Direct Bilirubin 0.9 H AST 80 H Alkaline Phosphatase 171 H Total Protein 5.6 L Albumin 2.7 L - Diagnostic Test Radiology reviewed: Image reviewed - CT head without contrast notes no acute abnormality, Reports reviewed Critical Care Note - Critical Care Note Total time excluding time spent on procedures (mins): 37 Comments: minutes of critical care time spent in direct contact evaluating and reevaluating the patient, treating symptoms, reviewing labs and studies and speaking with family and consultants excluding any procedures Discharge - Discharge Clinical Impression: Confusion and disorientation Leukocytosis Qualifiers: Leukocytosis type: other Qualified Code(s): D72.828 - Other elevated white blood cell count Hypotension Qualifiers: Hypotension type: unspecified hypotension type Qualified Code(s): I95.9 - Hypotension, unspecified Condition: Fair Disposition: ADMITTED INPATIENT Admitting Provider: Hospitalist Unit Admitted: Telemetry Referrals: LESLEY CASTANO MD [Primary Care Provider] - Follow up as needed
[2017-06-06 12:03] LABS: APPEARANCE,URINE SLIGHTLY-CLOUDY; BILIRUBIN,URINE SMALL (NEGATIVE); COLOR,URINE AMBER; GLUCOSE, URINE NEGATIVE (NEGATIVE); KETONES,URINE NEGATIVE (NEGATIVE); LEUKOCYTE ESTERASE,URINE NEGATIVE (NEGATIVE); NITRITE,URINE NEGATIVE (NEGATIVE); PROTEIN,URINE 30 mg/dL (NEGATIVE); URINE SPECIFIC GRAVITY 1.024
[2017-06-06] MEDS ORDERED: DEXTROSE 50%-WATER 25 GM/50 ML DISP.SYRIN IV PRN ×2 (14:03)
[2017-06-06] MEDS ORDERED: DEXTROSE 40% GEL 15 GM TUBE PO PRN ×2 (14:03)
[2017-06-06] MEDS ORDERED: POTASSI CL 20 MEQ/D5-1/2NS 1L 1,000 ML IV PRN (14:03)
[2017-06-06] MEDS ORDERED: ONDANSETRON HCL INJ/PF 4 MG/2 ML SDV IV PRN (14:03)
[2017-06-06] MEDS ORDERED: GLUCAGON,HUMAN RECOMB 1 MG INJ SUBCUT PRN (14:03)
[2017-06-06] MEDS ORDERED: HYDRALAZINE HCL INJ/PF 20 MG/1 ML SDV IV PRN (14:49)
--- NOTE | 2017-06-06 14:52 | PDOC H&P ---
History of Present Illness Admission Date/PCP: 06/06/17 11:31 LESLEY CASTANO MD Patient complains of: Minimally arousable History of Present Illness: PETEY MATA is a 72 year old female discharged from here on the allowing us today for progression of her previous stroke. She has had a downhill course over the year, with a precipitous decline over last couple months. History is provided by her daughter. Apparently she has had waxing and waning levels of interactivity since her recent discharge. Over the last couple days she has been less and less interactive. cares for at home alone. Today he was trying to help her to breakfast and she was essentially unarousable. She had had urinary and fecal incontinence diffusely. This was her first episode of diarrhea. No blood was seen. Family was unaware of any fevers, chills, nausea, vomiting. He managed, somehow, to get her into the shower and got her cleaned up, but was unable to get her back to the bed and essentially carried her to the commode and called EMS to bring her in. I was unable to get any significant response from her. Daughter reports that she has had very little oral intake over the past week. Her has been trying valiantly to get her to drink and eat with limited success. 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, Ischemic CVA Denies: Seizures Endocrine Medical History: Reports: Hypothyroidism Renal/ Medical History: Reports: None Malignancy Medical History: Reports: None GI Medical History: Reports: Hepatitis - HEP B 73/REMISSION, Hiatal Hernia Musculoskeltal Medical History: Reports: Arthritis - RIGHT HAND AND RIGHT KNEE Psychiatric Medical History: Reports: Dementia Hematology: Denies: Anemia, Sickle Cell Disease Infectious Medical History: Reports: Hepatitis B Past Surgical History Past Surgical History: Reports: Cholecystectomy Denies: Amputation, Hysterectomy, Mastectomy, Pacemaker Social History Information Source: Relative - Daughter Lives with: Spouse/Significant other Smoking Status: Never Smoker Frequency of Alcohol Use: None Hx Recreational Drug Use: No Drugs: None Hx Prescription Drug Abuse: No Family History Family History: Reviewed & Not Pertinent, CAD - 2 brothers with heart disease, Malignancy - Father mesothelioma. denies: CVA Parental Family History Reviewed: Yes Children Family History Reviewed: Yes Sibling(s) Family History Reviewed.: Yes Medication/Allergy Home Medications: Amlodipine Besylate [Norvasc 10 mg Tablet] 10 mg PO DAILY 06/06/17 Atorvastatin Calcium [Lipitor 20 mg Tablet] 20 mg PO QHS 06/06/17 Ferrous Sulfate [Feosol 325 mg Tablet] 325 mg PO DAILY 06/06/17 Levothyroxine Sodium [Synthroid] 125 mcg PO Q6AM 06/06/17 Lisinopril [Prinivil 40 mg Tablet] 40 mg PO DAILY 06/06/17 Multivitamin with Minerals [One Daily Plus Minerals] 1 tab PO WSUPPER 06/06/17 Omeprazole 40 mg PO DAILY 06/06/17 Allergies/Adverse Reactions: No Known Allergies Allergy (Verified 06/06/17 10:25) Review of Systems ROS unobtainable: Due to mental status Physical Exam Vital Signs: Temp Pulse Resp BP Pulse Ox 97.7 F 79 15 111/39 L 100 06/06/17 09:14 06/06/17 12:00 06/06/17 13:11 06/06/17 13:11 06/06/17 13:11 General appearance: PRESENT: no acute distress - Obtunded Head exam: PRESENT: atraumatic Eye exam: PRESENT: EOMI, PERRLA Neck exam: ABSENT: carotid bruit, thyromegaly Respiratory exam: PRESENT: clear to auscultation richie Cardiovascular exam: PRESENT: RRR GI/Abdominal exam: PRESENT: soft, tenderness - Possibly inferiorly, difficult to assess because of mental status Extremities exam: ABSENT: joint swelling, pedal edema Neurological exam: PRESENT: CN II-XII grossly intact. ABSENT: awake Skin exam: PRESENT: dry, warm Results Laboratory Results: 06/06/17 11:45 Urine Color CHRIST Urine Appearance SLIGHTLY-CLOUDY Urine pH 6.0 Ur Specific [place] 1.024 Urine Protein 30 H Urine Glucose (UA) NEGATIVE Urine Ketones NEGATIVE Urine Blood NEGATIVE Urine Nitrite NEGATIVE Ur Leukocyte Esterase NEGATIVE Urine WBC (Auto) 2 Urine RBC (Auto) 3 Impressions: Chest X-Ray 06/06/17 09:15 IMPRESSION: NO ACUTE RADIOGRAPHIC FINDING IN THE CHEST. Head CT 06/06/17 09:15 IMPRESSION: Limited study. No acute findings. 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 Assessment & Plan - Diagnosis (1) Acute metabolic encephalopathy Is this a current diagnosis for this admission?: Yes Plan: Unclear etiology. Sounds like a slow progressive course. She is not especially dehydrated despite her daughter's report of limited oral intake, I think her has been doing a remarkable job of getting something into her. I think she has a very poor prognosis, I discussed this with the daughter at some length, and I will discuss with her when he is available. Continue to monitor (2) Hypotension Qualifiers: Hypotension type: unspecified hypotension type Qualified Code(s): I95.9 - Hypotension, unspecified Is this a current diagnosis for this admission?: Yes Plan: Fluid responsive. Continue to monitor. (3) Leukocytosis Qualifiers: Leukocytosis type: other Qualified Code(s): D72.828 - Other elevated white blood cell count Is this a current diagnosis for this admission?: Yes Plan: Unclear etiology. Her chest x-ray was clear, urine was clear. I would be concerned about C. difficile colitis and I will start her on empiric IV Flagyl pending stool studies. We may need to put down an NG tube in order to give her oral medication, but I will hold on that for now (4) Hypertension Qualifiers: Hypertension type: essential hypertension Qualified Code(s): I10 - Essential (primary) hypertension Is this a current diagnosis for this admission?: No Plan: I will order as needed IV medication (5) Hypothyroid Qualifiers: Hypothyroidism type: unspecified Qualified Code(s): E03.9 - Hypothyroidism , unspecified Plan: For now I will hold her Synthroid, if she continues to be unable to take orals have to put an NG tube down.
[2017-06-06] MEDS ORDERED: ENOXAPARIN SODIUM INJ 40 MG/0.4 ML DISP.SYRIN SUBCUT ONE (15:00)
[2017-06-06] MEDS: METRONIDAZOLE 500 MG/NS RTU 100 ML IV SCH ×2 (17:14→21:32)
[2017-06-06] MEDS: FAMOTIDINE INJ/PF 20 MG/2 ML SDV IV SCH (21:32)
[2017-06-07] MEDS: METRONIDAZOLE 500 MG/NS RTU 100 ML IV SCH ×3 (03:58→14:53)
[2017-06-07 04:31] LABS: HEMATOCRIT 32.4 % (36.0-47.0); HEMOGLOBIN 10.8 g/dL (12.0-15.5); MEAN CORPUSCULAR HGB CONC 33.3 g/dL (32.0-36.0); MEAN CORPUSCULAR VOLUME 84 fl (80-97); PLATELET COUNT 350 10^3/uL (150-450); RED BLOOD COUNT 3.85 10^6/uL (3.72-5.28)
[2017-06-07 04:45] LABS: ALBUMIN 2.3 g/dL (3.5-5.0); ANION GAP 6 (5-19); BLOOD UREA NITROGEN 18 mg/dL (7-20); CALCIUM 8.6 mg/dL (8.4-10.2); CARBON DIOXIDE 25 mmol/L (22-30); CHLORIDE 110 mmol/L (98-107); GLUCOSE 121 mg/dL (75-110); PHOSPHORUS 2.9 mg/dL (2.5-4.5); POTASSIUM 4.1 mmol/L (3.6-5.0); SODIUM 141.2 mmol/L (137-145)
[2017-06-07 04:59] LABS: ABSOLUTE LYMPHOCYTES# (MANUAL) 0.7 10^3/uL (0.5-4.7); ABSOLUTE MONOCYTES # (MANUAL) 0.9 10^3/uL (0.1-1.4); ABSOLUTE NEUTROPHILS# (MANUAL) 20.5 10^3/uL (1.7-8.2); BASOPHILS % (MANUAL) 0 % (0-2); EOSINOPHILS % (MANUAL) 0 % (0-6); LYMPHOCYTES % (MANUAL) 3 % (13-45); METAMYELOCYTES % (MANUAL) 1 % (0); MONOCYTES % (MANUAL) 4 % (3-13); SEGMENTED NEUTROPHILS % (MAN) 92 % (42-78); TOTAL CELLS COUNTED 100
[2017-06-07 05:03] LABS: TOXIC GRANULATION SLIGHT
[2017-06-07 05:04] LABS: ANISOCYTOSIS SLIGHT; BURR CELLS 1+; OVALOCYTES 1+; POIKILOCYTOSIS 1+; SCHISTOCYTES 1+; TEAR DROP CELLS SLIGHT
[2017-06-07 05:05] LABS: PLATELET COMMENT ADEQUATE; PLATELET LARGE PRESENT
[2017-06-07] MEDS ORDERED: ENOXAPARIN SODIUM INJ 40 MG/0.4 ML DISP.SYRIN SUBCUT SCH (10:00)
[2017-06-07] MEDS: FAMOTIDINE INJ/PF 20 MG/2 ML SDV IV SCH (10:08)
[2017-06-07 13:03] VITALS: BP 112/46
[2017-06-07 14:36] LABS: PATH REVIEW PATHOLOGIST REVIEWED
--- NOTE | 2017-06-07 14:57 | PDOC PROGRESS REPORT ---
Subjective Progress Note for:: 06/07/17 Subjective:: Met with the patient's and daughter. Daughter reports that last night she was conversational and pleasant. Spoke to her later in the evening on the phone. Today she is back to being unarousable. I discussed the recent history and rather precipitous decline of the patient with her . He states that over the past month she has continued to not take enough in to support herself. She will take a couple bites of soft food and will not take any more. It takes him all day to get a single bottle of boost into her. We discussed the possibility of a feeding tube and he very clearly refused. After some further discussion he elected to make her comfort measures only. Reason For Visit: ACUTE ON CHRONIC ENCEPHALOPATHY,LEUKOCYTOSIS Physical Exam Vital Signs: Temp Pulse Resp BP Pulse Ox 99.0 F 91 18 112/46 L 99 06/07/17 12:00 06/07/17 12:00 06/07/17 12:00 06/07/17 12:00 06/07/17 12:00 Intake & Output 06/06/17 06/07/17 06/08/17 06:59 06:59 06:59 Intake Total 1300 Output Total 1025 Balance 275 Weight 69.1 kg General appearance: PRESENT: no acute distress Respiratory exam: PRESENT: clear to auscultation richie Cardiovascular exam: PRESENT: RRR GI/Abdominal exam: PRESENT: soft Neurological exam: PRESENT: other - Arousable Skin exam: PRESENT: warm Results Laboratory Results: 06/07/17 04:16 06/07/17 04:16 06/07/17 06/07/17 06/07/17 04:16 04:16 04:16 WBC 22.0 H RBC 3.85 Hgb 10.8 L Hct 32.4 L MCV 84 MCH 28.0 MCHC 33.3 RDW 15.0 H Plt Count 350 Seg Neutrophils % Not Reportable Lymphocytes % Not Reportable Monocytes % Not Reportable Eosinophils % Not Reportable Basophils % Not Reportable Absolute Neutrophils Not Reportable Absolute Lymphocytes Not Reportable Absolute Monocytes Not Reportable Absolute Eosinophils Not Reportable Absolute Basophils Not Reportable Sodium 141.2 Potassium 4.1 Chloride 110 H Carbon Dioxide 25 Anion Gap 6 BUN 18 Creatinine 0.59 Est GFR ( Amer) > 60 Est GFR (Non-Af Amer) > 60 Glucose 121 H Calcium 8.6 Phosphorus 2.9 Magnesium 2.2 Albumin 2.3 L TSH 5.56 H Impressions: Chest X-Ray 06/06/17 09:15 IMPRESSION: NO ACUTE RADIOGRAPHIC FINDING IN THE CHEST. Head CT 06/06/17 09:15 IMPRESSION: Limited study. No acute findings. 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 Assessment & Plan - Diagnosis (1) Acute metabolic encephalopathy Is this a current diagnosis for this admission?: Yes Plan: Based on description from the patient's daughter and this sounds like recurrent strokes that has now progressed to the point where she is unable to support herself. I think it is reasonable to just keep her comfortable and let nature take its course. She already has a palliative care consult. I will institute comfort measures. (2) Hypotension Qualifiers: Hypotension type: unspecified hypotension type Qualified Code(s): I95.9 - Hypotension, unspecified Is this a current diagnosis for this admission?: Yes Plan: Resolved with IV fluids. I will stop further hydration. Though she is welcome to take whatever she wants orally (3) Leukocytosis Qualifiers: Leukocytosis type: other Qualified Code(s): D72.828 - Other elevated white blood cell count Is this a current diagnosis for this admission?: Yes Plan: Improved overnight. Probably an acute phase reaction. Chest x-ray, urine, stool were negative for infection, so I will stop further antibiotics. (4) Hypertension Qualifiers: Hypertension type: essential hypertension Qualified Code(s): I10 - Essential (primary) hypertension Is this a current diagnosis for this admission?: No Plan: Currently normotensive off medications (5) Hypothyroid Qualifiers: Hypothyroidism type: unspecified Qualified Code(s): E03.9 - Hypothyroidism , unspecified Is this a current diagnosis for this admission?: Yes Plan: Hold her home medication. I do not expect her to survive long enough for this to be significant.
[2017-06-07] MEDS ORDERED: MORPHINE SULFATE 10 MG/5 ML ORAL SOLUTION UDCUP PO PRN (20:00)
--- NOTE | 2017-06-08 01:34 | Physician Advisory Note ---
Physician Advisor ProgressNote .: Pursuant to the plan for [facility], I have reviewed the medical record for this patient. Physician Advisor Statement: Please consider documenting, if you agree: 1. 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 CK
--- NOTE | 2017-06-08 13:48 | PDOC PROGRESS REPORT ---
Subjective Subjective:: This morning she is awake and cheerful. reports she drank a little liquid. Has not eaten much of anything. Very little of what she said made any sense. Reason For Visit: ACUTE ON CHRONIC ENCEPHALOPATHY,LEUKOCYTOSIS Physical Exam Vital Signs: Temp Pulse Resp BP Pulse Ox 99.0 F 91 18 112/46 L 99 06/07/17 12:00 06/07/17 12:00 06/07/17 12:00 06/07/17 12:00 06/07/17 12:00 Intake & Output 06/07/17 06/08/17 06/09/17 06:59 06:59 06:59 Intake Total 1300 300 Output Total 1025 160 Balance 275 140 Weight 69.1 kg General appearance: PRESENT: no acute distress Respiratory exam: PRESENT: clear to auscultation richie Cardiovascular exam: PRESENT: RRR GI/Abdominal exam: PRESENT: soft Musculoskeletal exam: PRESENT: normal inspection Neurological exam: PRESENT: awake. ABSENT: oriented to person, oriented to place, oriented to time, oriented to situation Psychiatric exam: PRESENT: appropriate affect Skin exam: PRESENT: warm Results Laboratory Results: 06/07/17 04:16 06/07/17 04:16 Impressions: Chest X-Ray 06/06/17 09:15 IMPRESSION: NO ACUTE RADIOGRAPHIC FINDING IN THE CHEST. Head CT 06/06/17 09:15 IMPRESSION: Limited study. No acute findings. 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 Assessment & Plan - Diagnosis (1) Acute metabolic encephalopathy Is this a current diagnosis for this admission?: Yes Plan: Waxing and waning course with a steep decline over the past month. Continue comfort measures (2) Hypotension Qualifiers: Hypotension type: unspecified hypotension type Qualified Code(s): I95.9 - Hypotension, unspecified Is this a current diagnosis for this admission?: Yes Plan: Resolved with IV fluids. Further hydration stopped. Though she is welcome to take whatever she wants orally (3) Leukocytosis Qualifiers: Leukocytosis type: other Qualified Code(s): D72.828 - Other elevated white blood cell count Is this a current diagnosis for this admission?: Yes Plan: Chest x-ray, urine, stool were negative for infection, no further antibiotics. (4) Hypertension Qualifiers: Hypertension type: essential hypertension Qualified Code(s): I10 - Essential (primary) hypertension Is this a current diagnosis for this admission?: No Plan: Currently normotensive off medications (5) Hypothyroid Qualifiers: Hypothyroidism type: unspecified Qualified Code(s): E03.9 - Hypothyroidism , unspecified Is this a current diagnosis for this admission?: Yes Plan: Hold her home medication. I do not expect her to survive long enough for this to be significant.
--- NOTE | 2017-06-08 23:56 | Palliative Consultation Report ---
Consultation From:: PAUL العراقي - [facility] HPI: Palliative care consult visit 06/08/17 4:15 PM Appreciate palliative care consult with this unfortunate 72 year old lady who is admitted with late effect CVA symptoms. Leighann is in bed, awake and answering simple questions appropriately, smiling and alert to people in room and conversation. She has had some small amounts of liquids PO and a few bites of food today, which is more than she has had in several days. Daughter is at bedside and reports that patient had a CVA last year, got much better and with her husbands help was walking and fairly independent. Then a couple of weeks ago, she appeared to have had another CVA and had much decline since. She was admitted to hospital for evaluation, discharged about and returned 06/06 with increased weakness and inability to eat or drink. She has been a little better today, but still is greatly changed from last month and is not improving much. Daughter states they are not leaning toward feeding tube since patient has said she doesnt want to be kept alive with artificial means. The daughter is aware that life expectancy will be short if she cnnot take in PO fluids or foods/ medications. Mrs. Gomes was living at home with her who is 75 years old and cannot care for her in this condition. Their daughter helps with care, but she works full time paramedic and has a handicapped young daughter to care for. This daughter was at bedside at time of my visit. We discussed some options for care of patient that they can consider. We discussed home care with hospice support, but that will not provide 24 hour care. Discussed hospice care center in either [place] or [facility] ( which would be closer for the family) . We discussed placement in SNF locally and Medicare payment for this care. And we discussed possibility that patient may in the hospital if she again declines or should have another neurologic or cardiac event. She is DNR status. All of this is a bit overwhelming for this daughter. She said her father is exhausted and is out running some needed errands this afternoon. Patient listened as we discussed her care, but she did not seem to comprehend what was being said. Onset: Just prior to arrival Onset/Duration: Gradual Pain Level: Denies Past Medical History(Consults) - General Information Source: Relative, [facility] Records Home Medications: Amlodipine Besylate [Norvasc 10 mg Tablet] 10 mg PO DAILY 06/06/17 Atorvastatin Calcium [Lipitor 20 mg Tablet] 20 mg PO QHS 06/06/17 Ferrous Sulfate [Feosol 325 mg Tablet] 325 mg PO DAILY 06/06/17 Levothyroxine Sodium [Synthroid] 125 mcg PO Q6AM 06/06/17 Lisinopril [Prinivil 40 mg Tablet] 40 mg PO DAILY 06/06/17 Multivitamin with Minerals [One Daily Plus Minerals] 1 tab PO WSUPPER 06/06/17 Omeprazole 40 mg PO DAILY 06/06/17 Allergies/Adverse Reactions: No Known Allergies Allergy (Verified 06/06/17 10:25) - Social History Lives with: Family, Spouse/Significant other Family History: Reviewed & Not Pertinent, CAD - 2 brothers with heart disease, Malignancy - Father mesothelioma Parental Family History Reviewed: No Children Family History Reviewed: No Sibling(s) Family History Reviewed.: No Smoking Status: Former Smoker Last Time Smoked: 02/20/1975 Frequency of Alcohol Use: None Hx Recreational Drug Use: No Drugs: None Hx Prescription Drug Abuse: No - Past Medical History Cardiac Medical History: Reports: Hx Hypercholesterolemia, Hx Hypertension - ON MEDS Denies: Hx Coronary Artery Disease, Hx Heart Attack Pulmonary Medical History: Denies: Hx Asthma, Hx Bronchitis, Hx COPD, Hx Pneumonia Neurological Medical History: Denies: Hx Cerebrovascular Accident, Hx Seizures Endocrine Medical History: Reports: Hx Hypothyroidism Renal/ Medical History: Reports: None. Denies: Hx Peritoneal Dialysis Malignancy Medical History: Reports: None GI Medical History: Reports: Hx Hepatitis - HEP B 73/REMISSION, Hx Hiatal Hernia. Denies: Hx Ulcer Musculoskeltal Medical History: Reports Hx Arthritis - RIGHT HAND AND RIGHT KNEE Psychiatric Medical History: Reports: Hx Dementia Infectious Medical History: Reports: Hx Hepatitis - HEP B 73/REMISSION Hematology: Denies: Anemia, Sickle Cell Disease - Surgical History Past Surgical History: Reports: Hx Cholecystectomy. Denies: Hx Hysterectomy, Hx Mastectomy, Hx Open Heart Surgery, Hx Pacemaker Review of systems ROS unobtainable: due to mental statu Constitutional: Weakness, Weight loss Gastrointestinal: Fecal incontinence Geniturinary: Incontinence Neurological/Psychological: Dementia, Weakness, Speech impairment Ojective:Exam Vital Signs: Temp Pulse Resp BP Pulse Ox 99.0 F 91 18 112/46 L 99 06/07/17 12:00 06/07/17 12:00 06/07/17 12:00 06/07/17 12:00 06/07/17 12:00 Intake & Output 06/07/17 06/08/17 06/09/17 06:59 06:59 06:59 Intake Total 1300 300 240 Output Total 1025 160 Balance 275 140 240 Weight 69.1 kg - General In distress: None Note:: Awake,does not appear to follow conversation in room, but answers simple direct questions addressed to her alone. No distress, denies pain except "where she sits" which was relieved by change in bed position. - HEENT Head: Normocephalic Eyes: Normal Mouth/Lips: Normal Mucous membrane: Moist - Neck Neck: Normal, Supple - Respiratory Respiratory Status: No respiratory distress Breath sounds: Clear - Cardiovascular Rhythm: Regular - Extremities Upper extremity: Normal inspection Lower extremities: Normal inspection - Neurological Orientation: Alert, Oriented to person Cranial nerves: Normal Neurological Note: Little spontaneous movement. - Psychological Associated symptoms: Normal affect, Normal mood Objective-Diagnostic Laboratory: 06/07/17 04:16 06/07/17 04:16 Plan and Recommendation Plan and Recommendation: Reviewed options for care , especially of patient does not continue to improve. talked about todays improvment as a possible temporary "rally" and she may be again less responsive tomorrow. Family will meet together this weekend to discuss best choice for continued care. cannot care for her at home alone. I gave daughter my cell phone number and encouraged her to call me if family had questions or concerns. I also told her estate planner can give them list of SNF in area in case she improves and resumes eating and drinking. Daughter is overwhelmed with care needs at this time and seemed surprised to think patient may not in hospital. We discussed that it it very likely she will within the next week unless she improves more than today. However, it is est if they are aware of care options available in case they need to make this decision. Family seems to be realistic about patients condition and futility of aggressive care at this time. Support offered to daughter and encouraged to call me if needed. - Time Spent with Patient Time spent with patient: 15 to 30 Minutes Time: 35 min Greater then 50% spent on Counseling & Coordination of Care: 25 min
--- NOTE | 2017-06-09 14:29 | PDOC PROGRESS REPORT ---
Subjective Progress Note for:: 06/09/17 Subjective:: This morning she is awake and cheerful. She is eaten a few bites and taken a little liquid. Very little of what she said made any sense, though she could carry a very simple conversation. Reason For Visit: ACUTE ON CHRONIC ENCEPHALOPATHY,LEUKOCYTOSIS Physical Exam Vital Signs: Temp Pulse Resp BP Pulse Ox 99.0 F 91 18 112/46 L 99 06/07/17 12:00 06/07/17 12:00 06/07/17 12:00 06/07/17 12:00 06/07/17 12:00 Intake & Output 06/08/17 06/09/17 06/10/17 06:59 06:59 06:59 Intake Total 300 240 Output Total 160 380 Balance 140 -140 General appearance: PRESENT: no acute distress, cooperative Respiratory exam: PRESENT: clear to auscultation richie Cardiovascular exam: PRESENT: RRR GI/Abdominal exam: PRESENT: soft Neurological exam: PRESENT: alert, oriented to person. ABSENT: oriented to place, oriented to time, oriented to situation Psychiatric exam: PRESENT: appropriate affect Skin exam: PRESENT: dry, warm Results Laboratory Results: 06/07/17 04:16 06/07/17 04:16 Impressions: Chest X-Ray 06/06/17 09:15 IMPRESSION: NO ACUTE RADIOGRAPHIC FINDING IN THE CHEST. Head CT 06/06/17 09:15 IMPRESSION: Limited study. No acute findings. 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 Assessment & Plan - Diagnosis (1) Acute metabolic encephalopathy Is this a current diagnosis for this admission?: Yes Plan: Waxing and waning course with a steep decline over the past month. Continue comfort measures. Discharge planning in progress (2) Hypotension Qualifiers: Hypotension type: unspecified hypotension type Qualified Code(s): I95.9 - Hypotension, unspecified Is this a current diagnosis for this admission?: Yes Plan: Resolved with IV fluids. We have stopped measuring her blood pressure. Further hydration stopped. Though she is welcome to take whatever she wants orally (3) Leukocytosis Qualifiers: Leukocytosis type: other Qualified Code(s): D72.828 - Other elevated white blood cell count Is this a current diagnosis for this admission?: Yes Plan: Chest x-ray, urine, stool were negative for infection, no further antibiotics. (4) Hypertension Qualifiers: Hypertension type: essential hypertension Qualified Code(s): I10 - Essential (primary) hypertension Is this a current diagnosis for this admission?: No Plan: We have stopped measuring her blood pressure (5) Hypothyroid Qualifiers: Hypothyroidism type: unspecified Qualified Code(s): E03.9 - Hypothyroidism , unspecified Is this a current diagnosis for this admission?: Yes Plan: Since she seems to have rallied a little, I will restart her Synthroid.
--- NOTE | 2017-06-10 00:02 | Progress Note ---
Provider Note Provider Note: Palliative Care Follow up visit 5:15 Pm Follow up visit with patient and her . Discussion with regarding options for care and patients condition. He reports she has been a little more alert at times today and has been able to drink some BOOST. She has not had much PO fluid and she has had no solid food. She still has not shown sign of pain or distress. Patient is still having incontinent diarrhea in large amounts, mostly water and some solid stool. Nurse reports skin on buttocks and perineum is very reddened and raw. Barrir cream being used, but stooling so often they are worried about the skin bleeding. Patient tolerates being cleaned, but does moan and frown. Mr. Gomes is hoping patient will in the hospital without pain or distress. However, we did discuss the same options for care if needed that I discussed with his daughter yesterday. He would prefer not to have her taken to [place], realizes bed may not be available in [facility]. We discussed placement in SNF with Medicare to cover cost. He does not want to take paitent home as he cannot provide the care she needs. The Gabriel have jaqueline for 52 years. Their three children will be together this weekend and he says it will be sad for his sons to say goodbye to their mother, but he is glad they will be able to see her before she dies. Appreciate good care from nursing staff. Will follow for support.
[2017-06-10] MEDS ORDERED: (PENDING PHARMACY ID) (Levothyroxine Sodium [Synthroid] 125 MCG) PO SCH (06:00)
[2017-06-10] MEDS: LEVOTHYROXINE SODIUM 0.025 MG TABLET PO SCH (06:36)
[2017-06-10] MEDS: LEVOTHYROXINE SODIUM 0.1 MG TABLET PO SCH (06:36)
[2017-06-10] MEDS ORDERED: LOPERAMIDE HCL ORAL SOLN 1 MG/5 ML UDC PO PRN (14:23)
--- NOTE | 2017-06-10 14:29 | PDOC PROGRESS REPORT ---
Subjective Progress Note for:: 06/10/17 Subjective:: This morning she is awake and cheerful. She is eaten a few bites and taken a little liquid. Very little of what she said made any sense, though she could carry a very simple conversation. at the bedside Reason For Visit: ACUTE ON CHRONIC ENCEPHALOPATHY,LEUKOCYTOSIS Physical Exam Vital Signs: Temp Pulse Resp BP Pulse Ox 99.0 F 91 18 112/46 L 99 06/07/17 12:00 06/07/17 12:00 06/07/17 12:00 06/07/17 12:00 06/07/17 12:00 Intake & Output 06/09/17 06/10/17 06/11/17 06:59 06:59 06:59 Intake Total 240 118 Output Total 380 400 Balance -140 -282 General appearance: PRESENT: no acute distress Respiratory exam: PRESENT: clear to auscultation richie Cardiovascular exam: PRESENT: RRR GI/Abdominal exam: PRESENT: soft Neurological exam: PRESENT: alert, altered, oriented to person. ABSENT: oriented to place, oriented to time, oriented to situation Psychiatric exam: PRESENT: appropriate affect Skin exam: PRESENT: warm Results Laboratory Results: 06/07/17 04:16 06/07/17 04:16 Impressions: Chest X-Ray 06/06/17 09:15 IMPRESSION: NO ACUTE RADIOGRAPHIC FINDING IN THE CHEST. Head CT 06/06/17 09:15 IMPRESSION: Limited study. No acute findings. 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 Assessment & Plan - Diagnosis (1) Acute metabolic encephalopathy Is this a current diagnosis for this admission?: Yes Plan: Waxing and waning course with a steep decline over the past month. She had a similar course with her last hospitalization and was ultimately discharged home. Once home she slowly failed and has become unable to care for at home. I have had a number of lengthy conversations with patient's and their daughter and they have elected to pursue comfort measures. Discharge planning in progress (2) Hypotension Qualifiers: Hypotension type: unspecified hypotension type Qualified Code(s): I95.9 - Hypotension, unspecified Is this a current diagnosis for this admission?: Yes Plan: Resolved with IV fluids. We have stopped measuring her blood pressure. Further hydration stopped. Though she is welcome to take whatever she wants orally (3) Leukocytosis Qualifiers: Leukocytosis type: other Qualified Code(s): D72.828 - Other elevated white blood cell count Is this a current diagnosis for this admission?: Yes Plan: Chest x-ray, urine, stool were negative for infection, no further antibiotics. (4) Hypertension Qualifiers: Hypertension type: essential hypertension Qualified Code(s): I10 - Essential (primary) hypertension Is this a current diagnosis for this admission?: No Plan: We have stopped measuring her blood pressure (5) Hypothyroid Qualifiers: Hypothyroidism type: unspecified Qualified Code(s): E03.9 - Hypothyroidism , unspecified Is this a current diagnosis for this admission?: Yes Plan: Since she seems to have rallied a little, I will restart her Synthroid. (6) Diarrhea Is this a current diagnosis for this admission?: Yes Plan: C. difficile was negative. Symptomatic treatment with Imodium
[2017-06-11] MEDS: LEVOTHYROXINE SODIUM 0.025 MG TABLET PO SCH (05:57)
[2017-06-11] MEDS: LEVOTHYROXINE SODIUM 0.1 MG TABLET PO SCH (05:57)
--- NOTE | 2017-06-11 16:30 | PDOC PROGRESS REPORT ---
Subjective Progress Note for:: 06/11/17 Subjective:: 72-year-old female with history of stroke and increasing weakness with inability to eat or drink downhill course over the past year with a precipitous decline over the past couple of months. The patient has had decreasing levels of interactiveness and required increased care at home. She was admitted to the hospital on June 06 with generalized weakness decreased mentation and urinary and fecal incontinence. Given her overall condition and worsening p.o. intake and mental status after conversations with the family a decision was made to pursue comfort measures only. This morning she is sitting up in bed and has no complaints. is at the bedside. Currently awaiting placement Reason For Visit: ACUTE ON CHRONIC ENCEPHALOPATHY,LEUKOCYTOSIS Physical Exam Vital Signs: Temp Pulse Resp BP Pulse Ox 99.0 F 91 18 112/46 L 99 06/07/17 12:00 06/07/17 12:00 06/07/17 12:00 06/07/17 12:00 06/07/17 12:00 Intake & Output 06/10/17 06/11/17 06/12/17 06:59 06:59 06:59 Intake Total 118 674 Output Total 400 400 Balance -282 274 General appearance: PRESENT: no acute distress Head exam: PRESENT: normocephalic Eye exam: ABSENT: scleral icterus Ear exam: PRESENT: normal external ear exam Mouth exam: PRESENT: moist Neck exam: ABSENT: tenderness Respiratory exam: PRESENT: clear to auscultation richie, symmetrical, unlabored Cardiovascular exam: PRESENT: RRR GI/Abdominal exam: PRESENT: soft. ABSENT: tenderness Rectal exam: PRESENT: deferred Extremities exam: ABSENT: calf tenderness, pedal edema Neurological exam: PRESENT: alert, awake Psychiatric exam: ABSENT: anxious Skin exam: ABSENT: mottled Results Laboratory Results: 06/07/17 04:16 06/07/17 04:16 06/06/17 15:10 Blood Blood Culture - Final NO GROWTH IN 5 DAYS Impressions: Chest X-Ray 06/06/17 09:15 IMPRESSION: NO ACUTE RADIOGRAPHIC FINDING IN THE CHEST. Head CT 06/06/17 09:15 IMPRESSION: Limited study. No acute findings. 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 Assessment & Plan - Diagnosis (1) Acute metabolic encephalopathy Is this a current diagnosis for this admission?: Yes (2) CVA (cerebral vascular accident) Qualifiers: Laterality of affected vessel: left Is this a current diagnosis for this admission?: No Plan: Continue supportive care. (3) Hypothyroid Qualifiers: Hypothyroidism type: unspecified Qualified Code(s): E03.9 - Hypothyroidism , unspecified Is this a current diagnosis for this admission?: Yes Plan: Continue Synthroid (4) Diarrhea Is this a current diagnosis for this admission?: Yes Plan: C. difficile was negative. Symptomatic treatment. (5) Hypotension Qualifiers: Hypotension type: unspecified hypotension type Qualified Code(s): I95.9 - Hypotension, unspecified Is this a current diagnosis for this admission?: Yes Plan: Likely secondary to poor p.o. intake. Resolved with IV fluids. Blood pressure medications were stopped. (6) Leukocytosis Qualifiers: Leukocytosis type: other Qualified Code(s): D72.828 - Other elevated white blood cell count Is this a current diagnosis for this admission?: Yes Plan: Chest x-ray urine stool negative for evidence of infection. Antibiotics were stopped. - Time Time Spent with patient: 25-34 minutes
[2017-06-12] MEDS: LEVOTHYROXINE SODIUM 0.1 MG TABLET PO SCH (06:07)
[2017-06-12] MEDS: LEVOTHYROXINE SODIUM 0.025 MG TABLET PO SCH (06:07)
[2017-06-12] MEDS ORDERED: POLYETHYLENE GLYCOL 3350 POWDER 17 GM/1 PACKET PO PRN (12:24)
[2017-06-12] MEDS ORDERED: LORAZEPAM 1 MG TABLET PO PRN (12:24)
--- NOTE | 2017-06-12 13:17 | PDOC TRANSFER SUMMARY ---
General - Admit/Disc Date/PCP Admission Date/Primary Care Provider: 06/06/17 11:31 LESLEY CASTANO MD Discharge Date: 06/12/17 - Discharge Diagnosis (1) Acute metabolic encephalopathy Is this a current diagnosis for this admission?: Yes (2) CVA (cerebral vascular accident) Is this a current diagnosis for this admission?: No (3) Hypothyroid Is this a current diagnosis for this admission?: Yes (4) Diarrhea Is this a current diagnosis for this admission?: Yes (5) Hypotension Is this a current diagnosis for this admission?: Yes (6) Leukocytosis Is this a current diagnosis for this admission?: Yes Summary: No evidence of infection - Additional Information Resuscitation Status: Full Code Discharge Diet: As Tolerated Prescriptions: Morphine Sulfate [Morphine 10 mg/5 ml Oral Soln Udcup] 10 mg PO Q1HP PRN 30 Days #1 bottle PRN Reason: Lorazepam [Ativan 1 mg Tablet] 1 mg PO Q4HP PRN #20 tablet PRN Reason: Anxiety/Agitation Home Medications: Ferrous Sulfate [Feosol 325 mg Tablet] 325 mg PO DAILY 06/06/17 Levothyroxine Sodium [Synthroid] 125 mcg PO Q6AM 06/06/17 Multivitamin with Minerals [One Daily Plus Minerals] 1 tab PO WSUPPER 06/06/17 Omeprazole 40 mg PO DAILY 06/06/17 Levothyroxine Sodium [Synthroid 0.1 mg Tablet] 0.1 mg PO Q6AM tablet 06/12/17 Loperamide HCl [Imodium Oral Soln 1 mg/5 ml Udc] 2 mg PO Q6HP PRN udc 06/12/17 Lorazepam [Ativan 1 mg Tablet] 1 mg PO Q4HP PRN #20 tablet 06/12/17 Morphine Sulfate [Morphine 10 mg/5 ml Oral Soln Udcup] 10 mg PO Q1HP PRN 30 Days #1 bottle 06/12/17 Polyethylene Glycol 3350 [Miralax Powder 17 gm/Packet] 17 gm PO DAILYP PRN powd.pack 06/12/17 History of Present Illness Admission Date/PCP: 06/06/17 11:31 LESLEY CASTANO MD History of Present Illness: 72-year-old female with history of stroke and increasing weakness with inability to eat or drink downhill course over the past year with a precipitous decline over the past couple of months. The patient has had decreasing levels of interactiveness and required increased care at home. She was admitted to the hospital on June 06 with generalized weakness decreased mentation and urinary and fecal incontinence. Given her overall condition and worsening p.o. intake and mental status after conversations with the family a decision was made to pursue comfort measures only. Ok to discharge to SNF on comfort care measures Physical Exam Vital Signs: Temp Pulse Resp BP Pulse Ox 99.0 F 91 18 112/46 L 99 06/07/17 12:00 06/07/17 12:00 06/07/17 12:00 06/07/17 12:00 06/07/17 12:00 Intake & Output 06/11/17 06/12/17 06/13/17 06:59 06:59 06:59 Intake Total 674 1270 Output Total 400 1350 Balance 274 -80 General appearance: PRESENT: no acute distress Head exam: PRESENT: normocephalic Eye exam: ABSENT: scleral icterus Ear exam: PRESENT: normal external ear exam Respiratory exam: PRESENT: symmetrical, unlabored Results Laboratory Results: 06/07/17 04:16 06/07/17 04:16 06/06/17 15:10 Blood Blood Culture - Final NO GROWTH IN 5 DAYS Impressions: Chest X-Ray 06/06/17 09:15 IMPRESSION: NO ACUTE RADIOGRAPHIC FINDING IN THE CHEST. Head CT 06/06/17 09:15 IMPRESSION: Limited study. No acute findings. 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 Status: Imported from PACS Transfer Plan - Time Spent with Patient Time spent with patient: Greater than 30 Minutes Qualifiers - * PATEINT BEING DISCHARGED WITH ANY OF THE FOLLOWING DIAGNOSIS?: No
--- NOTE | 2017-06-12 14:14 | Progress Note ---
Provider Note Provider Note: Palliative Care Follow up note: Brief follow up visit with Mrs. Gomes, who is making a good recovery mentally and some improvement physically. SHe was admitted with late effect CVA , sudden decline at home, not eating or drinking, chronic incontinent diarrhea and mental status decline and confusion. Over the course of the past week, she was put on comfort care measures and has improved. She is going to be transferred to [facility] today for continued care. Family is not at bedside today at time of my visit. Mrs. Gomes is awake today, speaking clearly and is alert/oriented x3. She has been eating banana, sherbert and some mac/cheese off her lunch tray. She reports less diarrhea and improved energy. She says she remembers being " in a fog" and very weak. She wants to go to rehab and get stronger so she can go back home. This is an amazing transformation from my visit 06/09 and I am happy for her. On brief exam. she is brathing easily with no cough or wheezes, Denies pain and pulse is strong and regular. Abd tender from diarrhea. No edema. Speech clear, swallowing well, good facial symmetry and oriented x3. She denies pain or respiratory distress and looks energetic and able to go to rehab. Patients family has my card and can call if any questions. I will be available if consult needed at [place]. Appreciate this kind referral and opportunity to participate in care.
== END 2017-06-12 16:48 | DRG 947 ==
LOC: ER 09:11 → EH 11:31 → 5 15:42
PROVIDERS: ADMIT Internal Medicine; ATTEND Internal Medicine
DX: R41.0 Disorientation, unspecified (principal); G93.49 Other encephalopathy; I95.9 Hypotension, unspecified; I69.398 Other sequelae of cerebral infarction; E03.9 Hypothyroidism, unspecified; D72.829 Elevated white blood cell count, unspecified; Z51.5 Encounter for palliative care; D72.828 Other elevated white blood cell count; R15.9 Full incontinence of feces; R53.1 Weakness; E78.5 Hyperlipidemia, unspecified; I10 Essential (primary) hypertension; M13.861 Other specified arthritis, right knee; R19.7 Diarrhea, unspecified; Z66 Do not resuscitate; M13.841 Other specified arthritis, right hand; F03.90 Unspecified dementia, unspecified severity, without behavioral disturbance, psychotic disturbance, mood disturbance, and anxiety; Z90.49 Acquired absence of other specified parts of digestive tract; Z86.19 Personal history of other infectious and parasitic diseases; Z79.899 Other long term (current) drug therapy; Z82.49 Family history of ischemic heart disease and other diseases of the circulatory system
CPT/HCPCS: 36415; 51702; 70450; 71045; 80053; 80069; 81001; 82550; 82553; 82962; 83735; 84443; 84484; 85025; 85610; 85730; 87040; 87493; 96365; 99291; G8978-GP; G8979-GP; G8996-GN; G8997-GN; G8998-GN; J0696; J1650; J3480; S0028; S0119

== ENCOUNTER 2017-06-30 06:22 | Emergency (ER) | payer MEDICARE, OTHER ==
[2017-06-30] MEDS ORDERED: LIDOCAINE 1% INJ-PF (10 MG/ML) 30 ML SDV INJ ONE (07:06)
--- NOTE | 2017-06-30 07:08 | RADIOLOGY REPORT (SQ) ---
EXAM DESCRIPTION: CT HEAD WITHOUT IV CONTRAST CLINICAL HISTORY: 72 years Female, fall COMPARISON: 4..18. TECHNIQUE: No contrast. Coronal and sagittal reformat. This exam was performed according to our departmental dose-optimization program, which includes automated exposure control, adjustment of the mA and/or kV according to patient size and/or use of iterative reconstruction technique. FINDINGS: Moderate left occipital-temporal infarct and mild ex vacuo enlargement of the left lateral ventricle, stable. Mild parenchymal volume loss. No hemorrhage, no mass effect, no midline shift. Abnormal CT of the facial bones reported separately. IMPRESSION: Abnormal CT of the facial bones reported separately. Chronic left occipital/temporal infarct.
--- NOTE | 2017-06-30 07:11 | RADIOLOGY REPORT (SQ) ---
EXAM DESCRIPTION: CT CERVICAL SPINE WITHOUT IV CONTRAST CLINICAL HISTORY: 72 years Female, fall Comparison: None. Technique: No contrast. Coronal and sagittal reformat. This exam was performed according to our departmental dose-optimization program, which includes automated exposure control, adjustment of the mA and/or kV according to patient size and/or use of iterative reconstruction technique.[facility]: Dose Right [facility]: CareDose [facility]: Dose Right [facility]: Teradose 4D [facility]: [employer] LIMITATIONS: None. Findings: Posterior C1 fusion variant. Minimal C5-C6 disc desiccation. 0.2 cm degenerative C4 anterolisthesis. No fracture. Moderate straightening. Normal vertebral heights. Unenhanced nuchal soft tissues, inferior cranium, and upper thorax appear otherwise grossly intact. Impression: No acute findings.
--- NOTE | 2017-06-30 07:16 | RADIOLOGY REPORT (SQ) ---
EXAM DESCRIPTION: CT MAXILLOFACIAL WITHOUT IV CONTRAST CLINICAL HISTORY: 72 years Female, fall Comparison: None. Technique: No contrast. Coronal and sagittal reformat. This exam was performed according to our departmental dose-optimization program, which includes automated exposure control, adjustment of the mA and/or kV according to patient size and/or use of iterative reconstruction technique.[facility]: Dose Right [facility]: CareDose [facility]: Dose Right [facility]: Teradose 4D [facility]: [employer] LIMITATIONS: None. Findings: Comminuted fracture of the left maxillary sinus involves the medial and anterior wall inferiorly with moderate hemorrhagic occlusion of the left maxillary sinus. Facial bones including orbits, nasal bone, paranasal sinuses, and pterygoid plates appear otherwise intact. Patent ostiomeatal units. Unremarkable partially visualized inferior cranium, temporal bone, and upper neck. IMPRESSION: Comminuted acute fracture of the left maxillary sinus.
--- NOTE | 2017-06-30 07:32 | ER Document Report ---
ED General - General Chief Complaint: Facial Injury Stated Complaint: FALL Time Seen by Provider: 06/30/17 06:32 Mode of Arrival: Ambulatory Information source: Patient, [facility] Records, Outside Facility Records Cannot obtain history due to: Dementia Notes: 72 yr old female dementia patient presents with complaints of fall. pt found laying face down, noted ot have laceraiton to upper lip and abrasion of the lower lip. pt herself denies any complaints . no blood thinners noted by ems TRAVEL OUTSIDE OF THE [place] IN LAST 30 DAYS: No - HPI Onset: Just prior to arrival Onset/Duration: Sudden Quality of pain: No pain Severity: Mild Pain Level: Denies Associated symptoms: Other Exacerbated by: Denies Relieved by: Denies Similar symptoms previously: No Recently seen / treated by doctor: No - Related Data Allergies/Adverse Reactions: No Known Allergies Allergy (Verified 06/06/17 10:25) Past Medical History - Social History Smoking Status: Never Smoker Cigarette use (# per day): No Chew tobacco use (# tins/day): No Smoking Education Provided: No Frequency of alcohol use: None Family History: Reviewed & Not Pertinent, CAD - 2 brothers with heart disease, Malignancy - Father mesothelioma Patient has suicidal ideation: Yes Patient has homicidal ideation: Yes - Past Medical History Cardiac Medical History: Reports: Hx Hypercholesterolemia, Hx Hypertension - ON MEDS Denies: Hx Coronary Artery Disease, Hx Heart Attack Pulmonary Medical History: Denies: Hx Asthma, Hx Bronchitis, Hx COPD, Hx Pneumonia Neurological Medical History: Denies: Hx Cerebrovascular Accident, Hx Seizures Endocrine Medical History: Reports: Hx Hypothyroidism Renal/ Medical History: Denies: Hx Peritoneal Dialysis GI Medical History: Reports: Hx Hepatitis - HEP B 73/REMISSION, Hx Hiatal Hernia. Denies: Hx Ulcer Musculoskeltal Medical History: Reports Hx Arthritis - RIGHT HAND AND RIGHT KNEE Psychiatric Medical History: Reports: Hx Dementia Infectious Medical History: Reports: Hx Hepatitis - HEP B 73/REMISSION Past Surgical History: Reports: Hx Cholecystectomy. Denies: Hx Hysterectomy, Hx Mastectomy, Hx Open Heart Surgery, Hx Pacemaker - Immunizations Hx Diphtheria, Pertussis, Tetanus Vaccination: Yes Hx Pneumococcal Vaccination: 11/20/14 Review of Systems - Review of Systems Notes: REVIEW OF SYSTEMS: CONSTITUTIONAL : Denies fever, chills, or sweats. Denies recent illness. EENT: Denies eye, ear, throat, or mouth pain or symptoms. Denies nasal or sinus congestion or discharge. Denies throat, tongue, or mouth swelling or difficulty swallowing. CARDIOVASCULAR: Denies chest pain. Denies palpitations or racing or irregular heart beat. Denies ankle edema. RESPIRATORY: Denies cough, cold, or chest congestion. Denies shortness of breath, difficulty breathing, or wheezing. GASTROINTESTINAL: Denies abdominal pain or distention. Denies nausea, vomiting , or diarrhea. Denies blood in vomitus, stools, or per rectum. Denies black, tarry stools. Denies constipation. GENITOURINARY: Denies difficulty urinating, painful urination, burning, frequency, blood in urine, or discharge. FEMALE GENITOURINARY: Denies vaginal bleeding, heavy or abnormal periods, irregular periods. Denies vaginal discharge or odor. MUSCULOSKELETAL: Denies back or neck pain or stiffness. Denies joint pain or swelling. SKIN: Denies rash, lesions or sores. HEMATOLOGIC : Denies easy bruising or bleeding. LYMPHATIC: Denies swollen, enlarged glands. NEUROLOGICAL: fall PSYCHIATRIC: Denies anxiety or stress. Denies depression, suicidal ideation, or homicidal ideation. ALL OTHER SYSTEMS REVIEWED AND NEGATIVE. PHYSICAL EXAMINATION: GENERAL: elderly HEAD: Atraumatic, normocephalic. EYES: Pupils equal round and reactive to light, extraocular movements intact, conjunctiva are normal. ENT: Nares patent, oropharynx clear without exudates. Moist mucous membranes. NECK: Normal range of motion, supple without lymphadenopathy LUNGS: Breath sounds clear to auscultation bilaterally and equal. No wheezes rales or rhonchi. HEART: Regular rate and rhythm without murmurs ABDOMEN: Soft, nontender, nondistended abdomen. No guarding, no rebound. No masses appreciated. Female : deferred Musculoskeletal: Normal range of motion, no pitting or edema. No cyanosis. NEUROLOGICAL: Cranial nerves grossly intact. Normal speech, normal gait. Normal sensory, motor exams PSYCH: Normal mood, normal affect. SKIN: upper lip laceration 1cm through ismael border, lower lip abrasion Dictation was performed using [employer] recognition software Course - Re-evaluation Re-evalutation: 06/30/17 07:37 da maxillofacial paged 06/30/17 07:[address] Guerra, she requests patient follow-up on Wade afternoon in her clinic, the request call for appointment at [phone] Otherwise she request pain control antibiotics 1 suture was placed of the upper lip with good approximation of the vermilion border After performing a Medical Screening Examination, I estimate there is LOW risk for OPEN FRACTURE, COMPARTMENT SYNDROME, TENDON RUPTURE, ACUTE NEUROVASCULAR INJURY, or RETAINED FOREIGN BODY, thus I consider the discharge disposition reasonable. Also, there is no evidence or peritonitis, sepsis, or toxicity. I have reevaluated this patient multiple times and no significant life threatening changes are noted. The patient family member and I have discussed the diagnosis and risks, and we agree with discharging home with close follow- up with the understanding that symptoms and presentations can change. We also discussed returning to the Emergency Department immediately if new or worsening symptoms occur. We have discussed the symptoms which are most concerning (e.g., changing or worsening pain, fever, numbness, weakness, cool or painful digits) that necessitate immediate return. - Diagnostic Test Radiology reviewed: Image reviewed - CT facial bone is concerning for a comminuted maxillary fracture,, Reports reviewed Procedures - Laceration/Wound Repair Right Mid- Face Time completed: 08:01 Wound length (cm): 1 Wound's Depth, Shape: Linear Laceration pre-procedure: Sterile PPE donned, Sterile drapes applied, Shur- Clens applied Anesthetic type: 1% Lidocaine Volume Anesthetic (mLs): 3 Wound explored: Clean, No foreign body removed Irrigated w/ Saline (mLs): 500 Wound Debrided: Minimal Wound Repaired With: Sutures Suture Size/Type: 6:0, Ethilon Number of Sutures: 1 Post-procedure wound care: Sterile dressing applied Post-procedure NV exam normal: Yes Complications: No Discharge - Discharge Clinical Impression: Comminuted maxillary sinus fracture Fall Qualifiers: Encounter type: initial encounter Qualified Code(s): W19.XXXA - Unspecified fall, initial encounter Lip laceration Qualifiers: Encounter type: initial encounter Qualified Code(s): S01.511A - Laceration without foreign body of lip, initial encounter Condition: Stable Disposition: HOME, SELF-CARE Additional Instructions: Please call Dr. Guerra for appointment on Monday [phone] Prescriptions: Cephalexin Monohydrate [Keflex 500 mg Capsule] 500 mg PO Q6H 10 Days capsule Referrals: LESLEY CASTANO MD [Primary Care Provider] - Follow up in 3-5 days
[2017-06-30 08:38] VITALS: BP 127/52
== END 2017-06-30 08:39 | disposition home or self-care (01) ==
LOC: ER 06:22
DX: S02.19XA Other fracture of base of skull, initial encounter for closed fracture (principal); S01.511A Laceration without foreign body of lip, initial encounter; W19.XXXA Unspecified fall, initial encounter; Y92.129 Unspecified place in nursing home as the place of occurrence of the external cause; I10 Essential (primary) hypertension
CPT/HCPCS: 70450; 70486; 72125; 99285

== ENCOUNTER 2017-07-11 20:19 | Emergency (ER) | payer MEDICARE, OTHER ==
[2017-07-11 20:31] VITALS: BP 134/81
--- NOTE | 2017-07-11 20:52 | ER Document Report ---
ED General - General Chief Complaint: Altered Mental Status Stated Complaint: ALTERED MENTAL STATUS Time Seen by Provider: 07/11/17 20:40 TRAVEL OUTSIDE OF THE [place] IN LAST 30 DAYS: No - HPI Notes: Note history is limited by patient's underlying dementia. 72-year-old female with multiple medical problems including dementia. Patient apparently fell a week ago, uncertain if she struck her head. They stated the last day or 2 she become more combative. She had received Ativan at the senior living and is now brought in for evaluation and head CT. Patient herself does not describe any complaint, is alert arousable but does not provide any meaningful information. No other modifying factors, no other associated symptoms, no other provocative or palliative factors. - Related Data Allergies/Adverse Reactions: No Known Allergies Allergy (Verified 06/06/17 10:25) Past Medical History - Social History Smoking Status: Unknown if Ever Smoked Chew tobacco use (# tins/day): No Frequency of alcohol use: None Drug Abuse: None Family History: Reviewed & Not Pertinent, CAD - 2 brothers with heart disease, Malignancy - Father mesothelioma Patient has suicidal ideation: No Patient has homicidal ideation: No - Medical History Notes: Include dementia - Past Medical History Cardiac Medical History: Reports: Hx Hypercholesterolemia, Hx Hypertension - ON MEDS Denies: Hx Coronary Artery Disease, Hx Heart Attack Pulmonary Medical History: Denies: Hx Asthma, Hx Bronchitis, Hx COPD, Hx Pneumonia Neurological Medical History: Denies: Hx Cerebrovascular Accident, Hx Seizures Endocrine Medical History: Reports: Hx Hypothyroidism Renal/ Medical History: Denies: Hx Peritoneal Dialysis GI Medical History: Reports: Hx Hepatitis - HEP B 73/REMISSION, Hx Hiatal Hernia. Denies: Hx Ulcer Musculoskeltal Medical History: Reports Hx Arthritis - RIGHT HAND AND RIGHT KNEE Psychiatric Medical History: Reports: Hx Dementia Infectious Medical History: Reports: Hx Hepatitis - HEP B 73/REMISSION Past Surgical History: Reports: Hx Cholecystectomy. Denies: Hx Hysterectomy, Hx Mastectomy, Hx Open Heart Surgery, Hx Pacemaker - Immunizations Hx Diphtheria, Pertussis, Tetanus Vaccination: Yes Hx Pneumococcal Vaccination: 11/20/14 Review of Systems - Review of Systems Notes: Review of systems unobtainable secondary to dementia Physical Exam - Vital signs Vitals: Pulse Resp BP Pulse Ox 83 16 134/81 H 100 07/11/17 20:30 07/11/17 20:30 07/11/17 20:30 07/11/17 20:30 - Notes Notes: General: Well-developed, well-nourished HEENT: Normocephalic. No external trauma noted. No villagomez sign, no hemotympanum. Mucosa is moist. No intraoral trauma. Neck: Midline trachea, no JVD. No midline cervical spine tenderness. No step- off or deformity. Chest: Normal excursion, no accessory muscle use. No gross trauma. Abdomen: Soft, nondistended. Nontender. No bruising. Pelvis: Stable. Vascular: Strong and symmetric upper and lower extremity pulses. Well-perfused extremities. Motor: Normal tone and power. Neurologic: Alert to person, obey simple commands, does not cooperate with finer neurologic testing. Nonfocal. Skin: No significant lacerations or purpura. Extremities: No cyanosis. No significant injury noted. Course - Re-evaluation Re-evalutation: 07/11/17 20:52 Elderly female presents with the after mentioned symptoms. Certainly is at increased risk for intracranial injury. We will proceed with head CT, serial observation, reassess. 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 Patient otherwise is appropriate, her baseline, nonagitated. Discharged home. - Vital Signs Vital signs: Temp Pulse Resp BP Pulse Ox 83 16 134/81 H 100 07/11/17 20:30 07/11/17 20:30 07/11/17 20:30 07/11/17 20:30 Discharge - Discharge Clinical Impression: Fall Qualifiers: Encounter type: initial encounter Qualified Code(s): W19.XXXA - Unspecified fall, initial encounter Condition: Stable Disposition: HOME, SELF-CARE Additional Instructions: Patient should have fall precautions
--- NOTE | 2017-07-11 21:26 | RADIOLOGY REPORT (SQ) ---
EXAM DESCRIPTION: CT HEAD WITHOUT COMPLETED DATE/TIME: 07/11/2017 9:02 pm REASON FOR STUDY: Trauma, COMPARISON: 06/30/2017 TECHNIQUE: Axial images acquired through the brain without intravenous contrast. Images reviewed wi th bone, brain and subdural windows. Images stored on PACS. All CT scanners at this facility use dose modulation, iterative reconstruction, and/or weight based d osing when appropriate to reduce radiation dose to as low as reasonably achievable (ALARA). [facility]: Dose Right [facility]: CareDose [facility]: Dose Right [facility]: Teradose 4D [facility]: Smart [employer] RADIATION DOSE: CT Rad equipment meets quality standard of care and radiation dose reduction techniq ues were employed. CTDIvol: 53.2 mGy. DLP: 2407 mGy-cm. mGy. LIMITATIONS: None. FINDINGS: VENTRICLES: Normal size and contour. CEREBRUM: No intracranial hemorrhage. Evolving left occipital -posterior temporal infarct. No midli ne shift. CEREBELLUM: No masses. No hemorrhage. No alteration of density. No evidence for acute infarction. EXTRAAXIAL SPACES: No fluid collections. No masses. ORBITS AND GLOBE: No intra- or extraconal masses. Normal contour of globe without masses. CALVARIUM: No fracture. PARANASAL SINUSES: No fluid or mucosal thickening. SOFT TISSUES: No mass or hematoma. OTHER: No other significant finding. IMPRESSION: No intracranial hemorrhage. Evolving left occipital -posterior temporal infarct. No mid line shift. EVIDENCE OF ACUTE STROKE: NO. COMMENT: Quality ID # [id number]: Final reports with documentation of one or more dose reduction techniques (e.g., Automated exposure control, adjustment of the mA and/or kV according to patient size, use of iterative reconstruction technique) TECHNICAL DOCUMENTATION: JOB ID: [id number] [place]-72 2010 [employer]- All Rights Reserved Reading location - IP/workstation name: [email or web address]
== END 2017-07-11 21:20 | disposition home or self-care (01) ==
LOC: ER 20:19
DX: R41.82 Altered mental status, unspecified (principal); F03.90 Unspecified dementia, unspecified severity, without behavioral disturbance, psychotic disturbance, mood disturbance, and anxiety; W19.XXXA Unspecified fall, initial encounter; E78.00 Pure hypercholesterolemia, unspecified; I10 Essential (primary) hypertension; E03.9 Hypothyroidism, unspecified; Z90.49 Acquired absence of other specified parts of digestive tract
CPT/HCPCS: 70450; 99285

== ENCOUNTER 2017-07-14 02:52 | Emergency (ER) | payer MEDICARE, OTHER ==
--- NOTE | 2017-07-14 03:44 | ER Document Report ---
ED General - General Stated Complaint: FALL Time Seen by Provider: 07/14/17 03:36 Notes: Patient is a 72-year-old female who presents with complaint of a fall. She has been seen here multiple times in the past for falls. She is not on blood thinning medications. She has dementia. On evaluation the patient denies any pain. She looks and feels well. She is moving around in the bed moving all extremities without any signs of pain and is actually laughing and pleasant on exam. She currently has no complaints at all. TRAVEL OUTSIDE OF THE [place] IN LAST 30 DAYS: No - Related Data Allergies/Adverse Reactions: No Known Allergies Allergy (Verified 06/06/17 10:25) Past Medical History - Social History Smoking Status: Unknown if Ever Smoked Frequency of alcohol use: None Drug Abuse: None Family History: Reviewed & Not Pertinent, CAD - 2 brothers with heart disease, Malignancy - Father mesothelioma - Past Medical History Cardiac Medical History: Reports: Hx Hypercholesterolemia, Hx Hypertension - ON MEDS Denies: Hx Coronary Artery Disease, Hx Heart Attack Pulmonary Medical History: Denies: Hx Asthma, Hx Bronchitis, Hx COPD, Hx Pneumonia Neurological Medical History: Denies: Hx Cerebrovascular Accident, Hx Seizures Endocrine Medical History: Reports: Hx Hypothyroidism Renal/ Medical History: Denies: Hx Peritoneal Dialysis GI Medical History: Reports: Hx Hepatitis - HEP B 73/REMISSION, Hx Hiatal Hernia. Denies: Hx Ulcer Musculoskeltal Medical History: Reports Hx Arthritis - RIGHT HAND AND RIGHT KNEE Psychiatric Medical History: Reports: Hx Dementia Infectious Medical History: Reports: Hx Hepatitis - HEP B 73/REMISSION Past Surgical History: Reports: Hx Cholecystectomy. Denies: Hx Hysterectomy, Hx Mastectomy, Hx Open Heart Surgery, Hx Pacemaker - Immunizations Hx Diphtheria, Pertussis, Tetanus Vaccination: Yes Hx Pneumococcal Vaccination: 11/20/14 Review of Systems - Review of Systems Notes: My Normal Review Basic REVIEW OF SYSTEMS: CONSTITUTIONAL : Denies fever, chills, or sweats. Denies recent illness. EENT: Denies eye, ear, throat, or mouth pain or symptoms. Denies nasal or sinus congestion. CARDIOVASCULAR: Denies chest pain. RESPIRATORY: Denies cough, cold, or chest congestion. Denies shortness of breath, difficulty breathing, or wheezing. GASTROINTESTINAL: Denies abdominal pain. Denies nausea, vomiting, or diarrhea. Denies constipation. Last BM: MUSCULOSKELETAL: Denies neck or back pain or joint pain or swelling. SKIN: Denies rash or skin lesions. NEUROLOGICAL: Chronic dementia. Denies headache. Denies weakness or paralysis or loss of use of either side. Denies problems with gait or speech. Denies sensory or motor loss. ALL OTHER SYSTEMS REVIEWED AND NEGATIVE. Physical Exam - Vital signs Vitals: Temp Pulse Resp BP Pulse Ox 98 F 109 H 98 H 154/76 H 100 07/14/17 03:42 07/14/17 03:42 07/14/17 03:42 07/14/17 03:42 07/14/17 03:42 - Notes Notes: General Appearance: Well nourished, alert, cooperative, no acute distress, no obvious discomfort. Vitals: reviewed, See vital signs table. Head: no swelling or tenderness to the head Eyes: PERRL, EOMI, Conjuctiva clear Mouth: No decreasd moisture Throat: No tonsillar inflammation, No airway obstruction, No lymphadenopathy Neck: Supple, no neck tenderness, No step-offs or deformities. Lungs: No wheezing, No rales, No rhonci, No accessory muscle use, good air exchange bilaterally. Heart: Normal rate, Regular rythm, No murmur, no rub Back: No pain to palpation of thoracic or lumbar spine. No step-offs or deformities. Abdomen: Normal BS, soft, No rigidity, No abdominal tenderness, No guarding, no rebound, no abdominal masses, no organomegaly Extremities: strength 5/5 in all extremities, good pulses in all extremities, no swelling or tenderness in the extremities, no edema. Skin: warm, dry, appropriate color, no rash Neuro: speech clear, oriented x 1, patient has a pleasantly demented affect., responds appropriately to questions. Patient is moving all 4 extremities on her own without difficulty. She is flexing and extending both legs at the hips without difficulty. She is grabbing handrails with her hands and pulling herself up in bed. Cranial nerves II through XII are intact. Course - Re-evaluation Re-evalutation: 07/14/17 04:46 Patient is reported fall however she has no evidence of bruising or swelling or pain on my exam. She has no bruising or swelling to the face or head. She has no pain or along the back. She has full range of motion of all extremities without tenderness or pain. Pelvis is stable nontender to palpation. Patient is on any blood thinners. I do not feel that she needs any x-rays or CT scans at this time. She will be discharged back to assisted. I did once again in my discharge instructions reiterate for the assisted that she needs strict fall precautions as she presents ER frequently for falls. Dictation of this chart was performed using voice recognition software; therefore, there may be some unintended grammatical errors. - Vital Signs Vital signs: Temp Pulse Resp BP Pulse Ox 98 F 109 H 98 H 154/76 H 100 07/14/17 03:42 07/14/17 03:42 07/14/17 03:42 07/14/17 03:42 07/14/17 03:42 Discharge - Discharge Clinical Impression: Fall Qualifiers: Encounter type: initial encounter Qualified Code(s): W19.XXXA - Unspecified fall, initial encounter Condition: Good Disposition: HOME, SELF-CARE Additional Instructions: Please keep Mrs. Gomes on strict fall precautions at the assisted. Please consider a bed belt if she continues to get out of bed and fall. Please have Mrs. Gomes reevaluated by her doctor this week or Monday. Bring Mrs. Gomes back to the ER if she has severe headache, vomiting, or is acting abnormally sleepy.
[2017-07-14 06:56] VITALS: BP 134/52
== END 2017-07-14 06:30 | disposition home or self-care (01) ==
LOC: ER 02:52
DX: F03.90 Unspecified dementia, unspecified severity, without behavioral disturbance, psychotic disturbance, mood disturbance, and anxiety (principal); W19.XXXA Unspecified fall, initial encounter; E78.00 Pure hypercholesterolemia, unspecified; I10 Essential (primary) hypertension; E03.9 Hypothyroidism, unspecified; Z91.81 History of falling; Z90.49 Acquired absence of other specified parts of digestive tract
CPT/HCPCS: 99284

== ENCOUNTER 2017-07-30 18:53 | Emergency (ER) | payer MEDICARE, OTHER ==
--- NOTE | 2017-07-30 19:34 | ER Document Report ---
ED Fall - General Chief Complaint: Fall Stated Complaint: FALL,NO COMPLIANTS Time Seen by Provider: 07/30/17 19:09 Notes: Patient is a 72-year-old female who comes emergency department for chief complaint of fall. Patient comes by EMS from [facility], reported that patient fell once in the morning and hit the back of her head and then lost her balance and fell this afternoon with no apparent injury or complaints. They state she was confused however patient is confused at baseline with dementia. Patient is telling me that she hurts over her right leg area, she told EMS that she heard on the back of her head. No vomiting, loss of consciousness, patient does not take a blood thinner. TRAVEL OUTSIDE OF THE [place] IN LAST 30 DAYS: No - Related data Allergies/Adverse Reactions: No Known Allergies Allergy (Verified 07/30/17 19:10) Past Medical History - General Information source: Patient - Social History Smoking Status: Never Smoker Frequency of alcohol use: None Drug Abuse: None Lives with: [facility] Family History: Reviewed & Not Pertinent, CAD - 2 brothers with heart disease, Malignancy - Father mesothelioma Patient has suicidal ideation: No Patient has homicidal ideation: No - Past Medical History Cardiac Medical History: Reports: Hx Hypercholesterolemia, Hx Hypertension - ON MEDS Denies: Hx Coronary Artery Disease, Hx Heart Attack Pulmonary Medical History: Denies: Hx Asthma, Hx Bronchitis, Hx COPD, Hx Pneumonia Neurological Medical History: Denies: Hx Cerebrovascular Accident, Hx Seizures Endocrine Medical History: Reports: Hx Hypothyroidism Renal/ Medical History: Denies: Hx Peritoneal Dialysis GI Medical History: Reports: Hx Hepatitis - HEP B 73/REMISSION, Hx Hiatal Hernia. Denies: Hx Ulcer Musculoskeltal Medical History: Reports Hx Arthritis - RIGHT HAND AND RIGHT KNEE Psychiatric Medical History: Reports: Hx Dementia Infectious Medical History: Reports: Hx Hepatitis - HEP B 73/REMISSION Past Surgical History: Reports: Hx Cholecystectomy. Denies: Hx Hysterectomy, Hx Mastectomy, Hx Open Heart Surgery, Hx Pacemaker - Immunizations Hx Diphtheria, Pertussis, Tetanus Vaccination: Yes Hx Pneumococcal Vaccination: 11/20/14 Review of Systems - Review of Systems Constitutional: No symptoms reported EENT: No symptoms reported Cardiovascular: No symptoms reported Respiratory: No symptoms reported Gastrointestinal: No symptoms reported Genitourinary: No symptoms reported Female Genitourinary: No symptoms reported Musculoskeletal: See HPI Skin: No symptoms reported Hematologic/Lymphatic: No symptoms reported Neurological/Psychological: See HPI Physical Exam - Vital signs Vitals: Temp Pulse Resp BP Pulse Ox 98.0 F 86 20 140/63 H 100 07/30/17 19:02 07/30/17 19:02 07/30/17 19:02 07/30/17 19:02 07/30/17 19:02 - Notes Notes: GENERAL: Alert, interacts well. No acute distress. HEAD: Normocephalic, atraumatic. EYES: Pupils equal, round, and reactive to light. Extraocular movements intact. ENT: Oral mucosa moist, tongue midline. NECK: Full range of motion. Supple. Trachea midline. LUNGS: Clear to auscultation bilaterally, no wheezes, rales, or rhonchi. No respiratory distress. HEART: Regular rate and rhythm. No murmur ABDOMEN: Soft, non-tender. Non-distended. Bowel sounds present in all 4 quadrants. EXTREMITIES: Moves all 4 extremities spontaneously. No edema, normal radial and dorsalis pedis pulses bilaterally. No cyanosis. Old bruise noted over the proximal anterior tibial area, no other traumatic findings. BACK: no cervical, thoracic, lumbar midline tenderness. No saddle anesthesia, normal distal neurovascular exam. NEUROLOGICAL: Alert and oriented x3. Normal speech. [cranial nerves II through XII grossly intact]. PSYCH: Normal affect, normal mood. SKIN: Warm, dry, normal turgor. No rashes or lesions noted. Course - Re-evaluation Re-evalutation: Patient smiling and well-appearing, confused about time and events but is cooperative and denies any current symptoms other than pain over her right leg. Reportedly baseline with her dementia. No traumatic findings other than an old bruise over her right proximal tibia but the area is nontender and not swollen. No signs of trauma to the head. Because of reported head injury, advanced age, and complaint of right leg/hip pain in these areas will be imaged. Images unremarkable. Vital signs unremarkable. Patient will be discharged back to long-term care facility with return precautions. - Vital Signs Vital signs: Temp Pulse Resp BP Pulse Ox 97.9 F 95 18 103/78 100 07/30/17 21:40 07/30/17 21:40 07/30/17 21:40 07/30/17 21:40 06/10/18 21:40 Discharge - Discharge Clinical Impression: Fall Qualifiers: Encounter type: initial encounter Qualified Code(s): W19.XXXA - Unspecified fall, initial encounter Condition: Stable Disposition: HOME, SELF-CARE Additional Instructions: The imaging and evaluation today does not show any concerning or new abnormalities. Follow head injury precautions listed below. Return to the emergency department for any concerning symptoms. Head Injury Precautions At this point, there is no evidence that your head injury is serious. Observation is necessary, however. Take only clear liquids for the first few hours, unless told otherwise by the doctor. If no pain medication was prescribed, you may take acetaminophen according to the directions on the bottle. Do not take any medication that may alter your level of alertness (unless you've discussed it with the doctor first) . Limit activity for the first 24 hours. Bed rest is best. During the first 24 hours, check to see approximately every two to three hours that the patient is easily arousable, responds normally, and can perform common tasks such as walking without difficulty. Contact your doctor or go to the hospital if any of the following things occur: Persistent vomiting, difficulty in arousing the patient, worsening or continued headache, or failure to improve as expected. Head injuries can cause symptoms that persist for a few days or even a few weeks. Referrals: ROLAND BANUELOS MD [Primary Care Provider] - Follow up as needed
--- NOTE | 2017-07-30 20:13 | RADIOLOGY REPORT (SQ) ---
EXAM DESCRIPTION: CT HEAD WITHOUT COMPLETED DATE/TIME: 07/30/2017 7:50 pm REASON FOR STUDY: fall, pain COMPARISON: CT head 06/30/2017, 07/11/2017. MRI head 05/29/2017. TECHNIQUE: Axial images acquired through the brain without intravenous contrast. Images reviewed wi th bone, brain and subdural windows. Images stored on PACS. All CT scanners at this facility use dose modulation, iterative reconstruction, and/or weight based d osing when appropriate to reduce radiation dose to as low as reasonably achievable (ALARA). [facility]: Dose Right [facility]: CareDose [facility]: Dose Right [facility]: Teradose 4D [facility]: Smart [place] RADIATION DOSE: CT Rad equipment meets quality standard of care and radiation dose reduction techniq ues were employed. CTDIvol: 53.2 mGy. DLP: 1097 mGy-cm. mGy. LIMITATIONS: None. FINDINGS: VENTRICLES: Mildly prominent. CEREBRUM: No mass effect. No hemorrhage. No midline shift. Low attenuation area at the left tempor o-occipital region consistent with known infarct. Otherwise, the dee-white matter differentiation i s maintained. No evidence for acute territorial infarction. CEREBELLUM: No mass effect. No hemorrhage. No alteration of density. No evidence for acute infarct ion. EXTRAAXIAL SPACES: No fluid collections. ORBITS AND GLOBE: Symmetrical contour of the globes. CALVARIUM: No depressed skull fracture. PARANASAL SINUSES: No air-fluid level. SOFT TISSUES: No hematoma. IMPRESSION: No acute intracranial hemorrhage or acute territorial infarct. 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 EVIDENCE OF ACUTE STROKE: NO. COMMENT: Quality ID # [id number]: Final reports with documentation of one or more dose reduction techniques (e.g., Automated exposure control, adjustment of the mA and/or kV according to patient size, use of iterative reconstruction technique) TECHNICAL DOCUMENTATION: JOB ID: [id number] 2010 [employer]- All Rights Reserved Reading location - IP/workstation name: [email or web address]
[2017-07-30] MEDS ORDERED: LORAZEPAM INJ 2 MG/1 ML VIAL IM ONE ×2 (20:23→20:47)
--- NOTE | 2017-07-30 20:35 | RADIOLOGY REPORT (SQ) ---
EXAM DESCRIPTION: HIP RIGHT AP/LATERAL COMPLETED DATE/TIME: 07/30/2017 7:54 pm REASON FOR STUDY: fall, pain COMPARISON: Bilateral hip x-ray 05/30/2017. NUMBER OF VIEWS: Two views. TECHNIQUE: AP pelvis and additional frog-leg view of the right hip. LIMITATIONS: None. FINDINGS: There is no acute fracture or dislocation. The pelvic ring is intact. The bilateral hip joints are maintained. Degenerative changes at the visualized lower lumbar spine. The soft tissues are unremarkable . IMPRESSION: No radiographic evidence of acute injury. TECHNICAL DOCUMENTATION: JOB ID: [id number] 2010 [employer]- All Rights Reserved Reading location - IP/workstation name: [email or web address]
[2017-07-30 21:52] VITALS: BP 103/78
== END 2017-07-30 21:50 | disposition home or self-care (01) ==
LOC: ER 18:53
DX: M79.604 Pain in right leg (principal); R51 Headache; W19.XXXA Unspecified fall, initial encounter; Y92.129 Unspecified place in nursing home as the place of occurrence of the external cause; F03.90 Unspecified dementia, unspecified severity, without behavioral disturbance, psychotic disturbance, mood disturbance, and anxiety; I10 Essential (primary) hypertension
CPT/HCPCS: 99285; 96372; 73502; 70450; J2060

== ENCOUNTER 2017-11-24 16:39 | Emergency (ER) | payer MEDICARE, OTHER ==
[2017-11-24 16:51] VITALS: BP 138/62
--- NOTE | 2017-11-24 17:18 | ER Document Report ---
ED General - General Chief Complaint: Fall Stated Complaint: FALL Time Seen by Provider: 11/24/17 17:06 Mode of Arrival: Stretcher Information source: Emergency Med Personnel, [facility] Records, Outside Facility Records Cannot obtain history due to: Dementia Notes: 72-year-old female with dementia, hypertension, hyperlipidemia, hypothyroidism presents via EMS from [facility] after she was found on the floor. EMS reports that the patient is in a locked unit of the nursing facility. They report that she was recently moved to a new room and does not know her way around. They describe frequent falls. Patient is unable to give any history due to severe dementia. TRAVEL OUTSIDE OF THE [place] IN LAST 30 DAYS: No - HPI Onset: Just prior to arrival Similar symptoms previously: Yes Recently seen / treated by doctor: Yes - Related Data Allergies/Adverse Reactions: No Known Allergies Allergy (Verified 07/30/17 19:10) Past Medical History - General Information source: Emergency Med Personnel, [facility] Cannot obtain history due to: Dementia - Social History Smoking Status: Unknown if Ever Smoked Lives with: Assisted Family History: Reviewed & Not Pertinent, CAD - 2 brothers with heart disease, Malignancy - Father mesothelioma Patient has suicidal ideation: No Patient has homicidal ideation: No - Past Medical History Cardiac Medical History: Reports: Hx Hypercholesterolemia, Hx Hypertension - ON MEDS Denies: Hx Coronary Artery Disease, Hx Heart Attack Pulmonary Medical History: Denies: Hx Asthma, Hx Bronchitis, Hx COPD, Hx Pneumonia Neurological Medical History: Denies: Hx Cerebrovascular Accident, Hx Seizures Endocrine Medical History: Reports: Hx Hypothyroidism Renal/ Medical History: Denies: Hx Peritoneal Dialysis GI Medical History: Reports: Hx Hepatitis - HEP B 73/REMISSION, Hx Hiatal Hernia. Denies: Hx Ulcer Musculoskeletal Medical History: Reports Hx Arthritis - RIGHT HAND AND RIGHT KNEE Psychiatric Medical History: Reports: Hx Dementia Infectious Medical History: Reports: Hx Hepatitis - HEP B 73/REMISSION Past Surgical History: Reports: Hx Cholecystectomy. Denies: Hx Hysterectomy, Hx Mastectomy, Hx Open Heart Surgery, Hx Pacemaker - Immunizations Hx Diphtheria, Pertussis, Tetanus Vaccination: Yes Hx Pneumococcal Vaccination: 11/20/14 Review of Systems - Review of Systems -: Yes ROS unobtainable due to patient's medical condition Physical Exam - Vital signs Vitals: Temp Pulse Resp BP Pulse Ox 97.9 F 78 18 138/62 H 100 11/24/17 16:50 11/24/17 16:50 11/24/17 16:50 11/24/17 16:50 11/24/17 16:50 - Notes Notes: PHYSICAL EXAMINATION: GENERAL: Well-appearing, well-nourished and in no acute distress. GCS 13 HEAD: Small area of ecchymosis on the right forehead. EYES: Pupils equal round and reactive to light, extraocular movements intact, sclera anicteric, conjunctiva are normal. ENT: Nares patent, oropharynx clear without exudates. Moist mucous membranes. No hemanotympanum . No blood in nares. No dental fracture NECK: Normal range of motion, supple without lymphadenopathy. Trachea midline. No midline tenderness, step-offs or deformities LUNGS: Breath sounds clear to auscultation bilaterally and equal. No wheezes rales or rhonchi. HEART: Regular rate and rhythm without murmurs. Pulses intact all throughout. ABDOMEN: Soft, nontender, nondistended abdomen. No guarding, no rebound. No masses appreciated. Musculoskeletal: Normal range of motion, no pitting or edema. No cyanosis. Hip non tender, stable. NEUROLOGICAL: AOx1 PSYCH: Normal mood, normal affect. SKIN: Warm, No active bleeding Course - Re-evaluation Re-evalutation: 11/24/17 20:[address] 11/24/17 17:06 IMPRESSION: Mild C5-6 degenerative disc changes. No acute findings in the cervical spine. Spina bifida at C1. 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 No acute intracranial imaging findings. Chronic microvascular ischemia. EVIDENCE OF ACUTE STROKE: NO. 72-year-old female with severe dementia presents via EMS from [facility] after experiencing an unwitnessed fall. Per EMS patient is in the locked unit of the halfway. She recently had her room changed and since that time she has been falling more frequently. This was an unwitnessed fall. Unclear whether patient had a loss of consciousness. Upon my exam patient is resting comfortably. She is conversive but confused and thinks that she is at the hospital with her puppies. Exam is significant for small area of ecchymosis on the forehead which appears to be an older wound. Patient moves all extremities. CT of the head and cervical spine were obtained and showed no acute process. Patient will be discharged back to the nursing facility in stable condition. Patient was evaluated and treated as appropriate for the patient's presenting symptoms and complaint, with consideration of any critical or life threatening conditions that may be associated with their obtained history and exam as noted above. At this time we will discharge the patient with return precautions and follow-up recommendations. After careful consideration I feel that that patient can be safely discharged from the emergency department, they were advised to followup with a primary care physician in 2-3 days. Dictation on this chart was performed using voice recognition software and may result in unintended grammatical, spelling, syntax or errors. - Vital Signs Vital signs: Temp Pulse Resp BP Pulse Ox 97.9 F 78 18 138/62 H 100 11/24/17 16:50 11/24/17 16:50 11/24/17 16:50 11/24/17 16:50 11/24/17 16:50 - Diagnostic Test Radiology reviewed: Image reviewed, Reports reviewed Discharge - Discharge Clinical Impression: Fall Qualifiers: Encounter type: initial encounter Qualified Code(s): W19.XXXA - Unspecified fall, initial encounter Dementia Qualifiers: Dementia type: unspecified type Dementia behavioral disturbance: with behavioral disturbance Qualified Code(s): F03.91 - Unspecified dementia with behavioral disturbance Cervical spine degeneration Qualifiers: Spinal osteoarthritis complication: unspecified spinal osteoarthritis Qualified Code(s): M47.812 - Spondylosis without myelopathy or radiculopathy, cervical region Condition: Fair Disposition: SNF-Other Instructions: Contusion ([facility]), Head Injury Precautions ([facility]), Neck Injury ( Cervical Strain) ([facility]) Additional Instructions: You have likely sustained a contusion (bruise) to your head. If you had a CT scan done, it did not show any evidence of serious injury or bleeding. Symptoms to expect from a concussion include nausea, mild to moderate headache, difficulty concentrating or sleeping, and mild lightheadedness. These symptoms should improve over the next few days to weeks. Return to the emergency department or follow-up with your primary care doctor if your symptoms are not improving over this time. Signs of a more serious head injury include vomiting , severe headache, excessive sleepiness or confusion, and weakness or numbness in your face, arms or legs. Return immediately to the Emergency Department if you experience any of these more concerning symptoms. Rest, avoid strenuous physical or mental activity, and avoid activities that could potentially result in another head injury until all your symptoms from this head injury are completely resolved for at least 2-3 weeks. If you participate in sports, get cleared by your doctor or operations trainer before returning to play. You may take ibuprofen or acetaminophen over the counter according to label instructions for mild headache or scalp soreness. Forms: Elevated Blood Pressure Referrals: ROLAND BANUELOS MD [Primary Care Provider] - Follow up as needed
--- NOTE | 2017-11-24 17:56 | RADIOLOGY REPORT (SQ) ---
EXAM DESCRIPTION: CT HEAD WITHOUT COMPLETED DATE/TIME: 11/24/2017 5:39 pm REASON FOR STUDY: fall COMPARISON: 07/30/2017 TECHNIQUE: Axial images acquired through the brain without intravenous contrast. Images reviewed wi th bone, brain and subdural windows. Additional sagittal and coronal reconstructions were generated. Images stored on PACS. All CT scanners at this facility use dose modulation, iterative reconstruction, and/or weight based d osing when appropriate to reduce radiation dose to as low as reasonably achievable (ALARA). [facility]: Dose Right [facility]: CareDose [facility]: Dose Right [facility]: Teradose 4D [facility]: [employer] RADIATION DOSE: CT Rad equipment meets quality standard of care and radiation dose reduction techniq ues were employed. CTDIvol: 53.2 mGy. DLP: 1097 mGy-cm. mGy. LIMITATIONS: None. FINDINGS: VENTRICLES: Normal size and contour. CEREBRUM: Old left posterior temporal/ occipital infarction. No hemorrhage. No acute infarction. N o mass. No midline shift. Areas of low density in the white matter most likely chronic small vessel ischemic changes. CEREBELLUM: No masses. No hemorrhage. No alteration of density. No evidence for acute infarction. EXTRAAXIAL SPACES: No fluid collections. No masses. ORBITS AND GLOBE: No intra- or extraconal masses. Normal contour of globe without masses. CALVARIUM: No fracture. PARANASAL SINUSES: No fluid or mucosal thickening. SOFT TISSUES: No mass or hematoma. OTHER: No other significant finding. 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 No acute intracranial imaging findings. Chronic microvascul ar ischemia. EVIDENCE OF ACUTE STROKE: NO. COMMENT: Quality ID # 436: Final reports with documentation of one or more dose reduction techniques (e.g., Automated exposure control, adjustment of the mA and/or kV according to patient size, use of iterative reconstruction technique) TECHNICAL DOCUMENTATION: JOB ID: [id number] [employer]- All Rights Reserved Reading location - IP/workstation name: [email or web address]
--- NOTE | 2017-11-24 18:00 | RADIOLOGY REPORT (SQ) ---
EXAM DESCRIPTION: CT CERVICAL SPINE WITHOUT COMPLETED DATE/TIME: 11/24/2017 5:39 pm REASON FOR STUDY: fall COMPARISON: None. TECHNIQUE: Axial images acquired through the cervical spine without intravenous contrast. Images re viewed with lung, soft tissue and bone windows. Reconstructed coronal and sagittal MPR images review ed. Images stored on PACS. All CT scanners at this facility use dose modulation, iterative reconstruction, and/or weight based d osing when appropriate to reduce radiation dose to as low as reasonably achievable (ALARA). [facility]: Dose Right [facility]: CareDose [facility]: Dose Right [facility]: Teradose 4D [facility]: Smart [employer] RADIATION DOSE: CT Rad equipment meets quality standard of care and radiation dose reduction techniq ues were employed. CTDIvol: 15.4 mGy. DLP: 318 mGy-cm. mGy. LIMITATIONS: None. FINDINGS: ALIGNMENT: Anatomic. MINERALIZATION: Normal. VERTEBRAL BODIES: No fractures or dislocation. DISCS: There is narrowing of the C5-6 disc space. FACETS, LATERAL MASSES, POSTERIOR ELEMENTS: No fractures. No acute findings. There is spina bifida at C1. No fractures. No dislocation. No acute findings. HARDWARE: None in the spine. VISUALIZED RIBS: No fractures. LUNG APICES AND SOFT TISSUES: No significant or acute findings. OTHER: No other significant finding. IMPRESSION: Mild C5-6 degenerative disc changes. No acute findings in the cervical spine. Spina bi fida at C1. TECHNICAL DOCUMENTATION: JOB ID: [id number] Quality ID # [id number]: Final reports with documentation of one or more dose reduction techniques (e.g., Au tomated exposure control, adjustment of the mA and/or kV according to patient size, use of iterative reconstruction technique) 2010 [email or web address]- All Rights Reserved Reading location - IP/workstation name: [email or web address]
== END 2017-11-24 20:20 ==
LOC: ER 16:39
DX: S00.83XA Contusion of other part of head, initial encounter (principal); W19.XXXA Unspecified fall, initial encounter; Y92.129 Unspecified place in nursing home as the place of occurrence of the external cause; F03.90 Unspecified dementia, unspecified severity, without behavioral disturbance, psychotic disturbance, mood disturbance, and anxiety; R29.6 Repeated falls; M47.812 Spondylosis without myelopathy or radiculopathy, cervical region; I10 Essential (primary) hypertension; Z86.73 Personal history of transient ischemic attack (TIA), and cerebral infarction without residual deficits
CPT/HCPCS: 70450; 72125; 99284

== ENCOUNTER 2017-11-25 11:01 | Observation (INO) | payer MEDICARE, OTHER ==
--- NOTE | 2017-11-25 11:25 | ER Document Report ---
ED General <LAKE BERGERON - Last Filed: 11/25/17 15:23> - General TRAVEL OUTSIDE OF THE [place] IN LAST 30 DAYS: No <TOYA CURRY - Last Filed: 11/25/17 16:44> - General Chief Complaint: Seizure Stated Complaint: POSSIBLE SEIZURE Time Seen by Provider: 11/25/17 11:19 Notes: Patient had a seizure this morning. Patient has never had seizures before. Witnessed seizure by a nurse at the [place], the facility where she resides. Patient has not been ill recently, but she did fall yesterday from her wheelchair and injured her right forehead region. She has some bruising in that area. She was seen here and had a CT scan of her head and neck that were without significant or acute findings. Patient has profound dementia and cannot provide any helpful information about what happened to her or how she feels. Her is here who says that she is never had a seizure before. ( TOYA CURRY) - Related Data Allergies/Adverse Reactions: No Known Allergies Allergy (Verified 07/30/17 19:10) Past Medical History - Social History Smoking Status: Unknown if Ever Smoked Lives with: [facility] Family History: Reviewed & Not Pertinent, CAD - 2 brothers with heart disease, Malignancy - Father mesothelioma - Past Medical History Cardiac Medical History: Reports: Hx Hypercholesterolemia, Hx Hypertension - ON MEDS Neurological Medical History: Reports: Hx Cerebrovascular Accident Endocrine Medical History: Reports: Hx Hypothyroidism. 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 Denies: Hx Ulcer Musculoskeletal Medical History: Reports Hx Arthritis - RIGHT HAND AND RIGHT KNEE Psychiatric Medical History: Reports: Hx Anxiety, Hx Dementia, Hx Depression Infectious Medical History: Reports: Hx Hepatitis - HEP B 73/REMISSION Past Surgical History: Reports: Hx Cholecystectomy - Immunizations Hx Diphtheria, Pertussis, Tetanus Vaccination: Yes Hx Pneumococcal Vaccination: 11/20/14 <TOYA CURRY - Last Filed: 11/25/17 16:44> Review of Systems - Review of Systems -: Yes ROS unobtainable due to patient's medical condition <TOYA CURRY - Last Filed: 11/25/17 16:44> Physical Exam <LAKE BERGERON - Last Filed: 11/25/17 15:23> <TOAY CURRY - Last Filed: 11/25/17 16:44> - Vital signs Vitals: Resp BP Pulse Ox 29 H 140/65 H 95 11/25/17 11:05 11/25/17 11:05 11/25/17 11:05 Notes: PHYSICAL EXAMINATION: GENERAL: Sleeping, but in no distress. HEAD: Atraumatic, normocephalic. Some bruising in the right forehead area. Color suggest is been there for several days and this is where she fell and hit her right forehead that she was seen here for yesterday. EYES: Pupils equal round and reactive to light, extraocular movements intact. ENT: oropharynx clear without exudates. Moist mucous membranes. Patient has a fairly large prominent birthmark of the right chin and lower lip. She might have a slight little bite of the tip of her tongue, but is not bleeding at this time. NECK: Normal range of motion, supple. Tender to palpate the upper posterior neck area. LUNGS: Breath sounds clear and equal bilaterally. HEART: Regular rate and rhythm without murmurs. ABDOMEN: Soft, nontender. No guarding or rebound. No masses. BACK: No tenderness throughout entire back. EXTREMITIES: Normal range of motion without pain. NEUROLOGICAL: Does not speak and does not walk. Does not follow commands. Does not answer questions. Does move all 4 extremities. PSYCH: Normal mood, normal affect. SKIN: Warm, dry, no rashes. (TOYA CURRY) Course - Laboratory Result Diagrams: 11/25/17 11:12 11/25/17 11:12 <LAKE BERGERON - Last Filed: 11/25/17 15:23> - Laboratory Result Diagrams: 11/25/17 11:12 11/25/17 11:12 <TOYA CRURY - Last Filed: 11/25/17 16:44> - Re-evaluation Re-evalutation: 11/25/17 16:33 Lumbar puncture was attempted by me without success. I asked Dr. Bergeron's assistance and he was able to obtain some spinal fluid which was essentially clear. 11/25/17 16:44 Discussed case with hospitalist who will admit her for observation for her unexplained leukocytosis. (TOYA CURRY) - Vital Signs Vital signs: Temp Pulse Resp BP Pulse Ox 98.7 F 27 H 132/64 H 96 11/25/17 14:01 11/25/17 14:01 11/25/17 14:01 11/25/17 13:01 - Laboratory Laboratory results interpreted by me: 11/25/17 11/25/17 11/25/17 11:12 11:12 12:01 WBC 17.8 H Hgb 11.8 L Hct 35.5 L RDW 14.6 H Seg Neuts % (Manual) 90 H Lymphocytes % (Manual) 7 L Abs Neuts (Manual) 16.0 H Carbon Dioxide 21 L Glucose 112 H Direct Bilirubin 0.8 H AST 60 H Alkaline Phosphatase 144 H Total Protein 6.2 L Albumin 3.0 L Urine Ketones 20 H Urine Bilirubin SMALL H Urine Urobilinogen 2.0 H Urine Ascorbic Acid 20 H CSF RBC CSF Total Protein 11/25/17 11/25/17 14:52 14:52 WBC Hgb Hct RDW Seg Neuts % (Manual) Lymphocytes % (Manual) Abs Neuts (Manual) Carbon Dioxide Glucose Direct Bilirubin AST Alkaline Phosphatase Total Protein Albumin Urine Ketones Urine Bilirubin Urine Urobilinogen Urine Ascorbic Acid CSF RBC 1725 H CSF Total Protein 67 H Procedures - Lumbar Puncture Lumbar puncture Lumbar puncture pre-procedure: Sterile PPE donned, Chloraprep applied, Sterile drapes applied Patient position: Sitting Needle size: 22 Lumbar puncture location: L3/l4 Anesthetic type: 1% Lidocaine mL's of anesthetic: 2 Amount/type of drainage: clear csf Number of attempts: 1 Complications: No <LAKE BERGERON - Last Filed: 11/25/17 15:23> Discharge <LAKE BERGERON - Last Filed: 11/25/17 15:23> - Discharge Admitting Provider: Hospitalist Unit Admitted: Medical Floor <OTYA CURRY - Last Filed: 11/25/17 16:44> - Discharge Clinical Impression: Leukocytosis, Seizure Condition: Stable Referrals: ROLAND BANUELOS MD [Primary Care Provider] - Follow up as needed
[2017-11-25 11:48] LABS: HEMATOCRIT 35.5 % (36.0-47.0); HEMOGLOBIN 11.8 g/dL (12.0-15.5); MEAN CORPUSCULAR HEMOGLOBIN 27.8 pg (27.0-33.4); MEAN CORPUSCULAR HGB CONC 33.2 g/dL (32.0-36.0); MEAN CORPUSCULAR VOLUME 84 fl (80-97); PLATELET COUNT 373 10^3/uL (150-450); RED BLOOD COUNT 4.25 10^6/uL (3.72-5.28); RED CELL DISTRIBUTION WIDTH 14.6 % (11.5-14.0); WHITE BLOOD COUNT 17.8 10^3/uL (4.0-10.5)
--- NOTE | 2017-11-25 11:59 | RADIOLOGY REPORT (SQ) ---
EXAM DESCRIPTION: CHEST SINGLE VIEW COMPLETED DATE/TIME: 11/25/2017 11:49 am REASON FOR STUDY: New onset seizures COMPARISON: 06/06/2017 and earlier EXAM PARAMETERS: NUMBER OF VIEWS: One view. TECHNIQUE: Single frontal radiographic view of the chest acquired. RADIATION DOSE: NA LIMITATIONS: None. FINDINGS: LUNGS AND PLEURA: No opacities, masses or pneumothorax. No pleural effusion. MEDIASTINUM AND HILAR STRUCTURES: No masses. Contour normal. HEART AND VASCULAR STRUCTURES: Heart normal in size. Calcifications of the aortic knob. Normal vasc ulature. BONES: No acute findings. HARDWARE: None in the chest. OTHER: No other significant finding. IMPRESSION: NO ACUTE RADIOGRAPHIC FINDING IN THE CHEST. TECHNICAL DOCUMENTATION: JOB ID: [id number] [employer]- All Rights Reserved Reading location - IP/workstation name: [email or web address]
[2017-11-25 12:00] LABS: ALANINE AMINOTRANSFERASE 28 U/L (9-52); ALKALINE PHOSPHATASE 144 U/L (38-126); ANION GAP 9 (5-19); ASPARTATE AMINO TRANSFERASE 60 U/L (14-36); BILIRUBIN,DIRECT 0.8 mg/dL (0.0-0.4); BILIRUBIN,TOTAL 1.3 mg/dL (0.2-1.3); BLOOD UREA NITROGEN 16 mg/dL (7-20); CALCIUM 9.3 mg/dL (8.4-10.2); CARBON DIOXIDE 21 mmol/L (22-30); CHLORIDE 107 mmol/L (98-107); GLUCOSE 112 mg/dL (75-110); POTASSIUM 3.9 mmol/L (3.6-5.0); SODIUM 137.2 mmol/L (137-145); TOTAL PROTEIN 6.2 g/dL (6.3-8.2)
[2017-11-25 12:13] LABS: ABSOLUTE LYMPHOCYTES# (MANUAL) 1.2 10^3/uL (0.5-4.7); ABSOLUTE MONOCYTES # (MANUAL) 0.5 10^3/uL (0.1-1.4); BASOPHILS % (MANUAL) 0 % (0-2); EOSINOPHILS % (MANUAL) 0 % (0-6); LYMPHOCYTES % (MANUAL) 7 % (13-45); MONOCYTES % (MANUAL) 3 % (3-13); SEGMENTED NEUTROPHILS % (MAN) 90 % (42-78); TOTAL CELLS COUNTED 100
[2017-11-25 12:15] LABS: OVALOCYTES 1+
[2017-11-25 12:16] LABS: ANISOCYTOSIS SLIGHT; BURR CELLS 1+; PLATELET CLUMPS PRESENT; PLATELET COMMENT ADEQUATE; POIKILOCYTOSIS 2+
[2017-11-25 12:32] LABS: APPEARANCE,URINE SLIGHTLY-CLOUDY; BILIRUBIN,URINE SMALL (NEGATIVE); COLOR,URINE AMBER; GLUCOSE, URINE NEGATIVE (NEGATIVE); KETONES,URINE 20 mg/dL (NEGATIVE); LEUKOCYTE ESTERASE,URINE NEGATIVE (NEGATIVE); NITRITE,URINE NEGATIVE (NEGATIVE); PROTEIN,URINE NEGATIVE (NEGATIVE); URINE SPECIFIC GRAVITY 1.024
--- NOTE | 2017-11-25 12:38 | RADIOLOGY REPORT (SQ) ---
EXAM DESCRIPTION: CT HEAD WITHOUT COMPLETED DATE/TIME: 11/25/2017 11:57 am REASON FOR STUDY: New onset seizures, head injury yesterday COMPARISON: 11/24/2017 and earlier TECHNIQUE: Axial images acquired through the brain without intravenous contrast. Images reviewed wi th bone, brain and subdural windows. Additional sagittal and coronal reconstructions were generated. Images stored on PACS. All CT scanners at this facility use dose modulation, iterative reconstruction, and/or weight based d osing when appropriate to reduce radiation dose to as low as reasonably achievable (ALARA). [facility]: Dose Right [facility]: CareDose [facility]: Dose Right [facility]: Teradose 4D [facility]: Smart [employer] RADIATION DOSE: CT Rad equipment meets quality standard of care and radiation dose reduction techniq ues were employed. CTDIvol: 53.2 mGy. DLP: 1070 mGy-cm. mGy. LIMITATIONS: None. FINDINGS: VENTRICLES: Expected dilatation of the occipital horn of the left lateral ventricle. Vent ricles are otherwise normal in size for the patient's age. CEREBRUM: No masses. No hemorrhage. No midline shift. No evidence for acute infarction. Few scatte red areas of low density in the white matter most likely chronic small vessel ischemic changes. Unch anged encephalomalacia of the left occipital lobe and inferior, posterior left temporal lobe, sequela e of prior infarction. CEREBELLUM: No masses. No hemorrhage. No alteration of density. No evidence for acute infarction. EXTRAAXIAL SPACES: No fluid collections. No masses. ORBITS AND GLOBE: No intra- or extraconal masses. Normal contour of globe without masses. CALVARIUM: No fracture. PARANASAL SINUSES: No fluid or mucosal thickening. SOFT TISSUES: No mass or hematoma. OTHER: No other significant finding. IMPRESSION: 1. No acute intracranial findings. 2. Encephalomalacia of the left occipital and temporal lobes, sequelae of prior infarcts. 3. Mild chronic microvascular ischemic disease. EVIDENCE OF ACUTE STROKE: NO. COMMENT: Quality ID # [id number]: Final reports with documentation of one or more dose reduction techniques (e.g., Automated exposure control, adjustment of the mA and/or kV according to patient size, use of iterative reconstruction technique) TECHNICAL DOCUMENTATION: JOB ID: [id number] [employer]- All Rights Reserved Reading location - IP/workstation name: [email or web address]
[2017-11-25 12:40] LABS: URINE AMPHETAMINES SCREEN NEGATIVE; URINE BARBITURATES SCREEN NEGATIVE; URINE BENZODIAZEPINES SCREEN NEGATIVE; URINE COCAINE SCREEN NEGATIVE; URINE MARIJUANA (THC) SCREEN NEGATIVE; URINE METHADONE SCREEN NEGATIVE; URINE PHENCYCLIDINE SCREEN NEGATIVE
--- NOTE | 2017-11-25 12:45 | RADIOLOGY REPORT (SQ) ---
EXAM DESCRIPTION: CT CERVICAL SPINE WITHOUT COMPLETED DATE/TIME: 11/25/2017 11:57 am REASON FOR STUDY: New onset seizure with fall, neck pain COMPARISON: None. TECHNIQUE: Axial images acquired through the cervical spine without intravenous contrast. Images re viewed with lung, soft tissue and bone windows. Reconstructed coronal and sagittal MPR images review ed. Images stored on PACS. All CT scanners at this facility use dose modulation, iterative reconstruction, and/or weight based d osing when appropriate to reduce radiation dose to as low as reasonably achievable (ALARA). [facility]: Dose Right [facility]: CareDose [facility]: Dose Right [facility]: Teradose 4D [facility]: Smart [employer] RADIATION DOSE: CT Rad equipment meets quality standard of care and radiation dose reduction techniq ues were employed. CTDIvol: 14.5 mGy. DLP: 317 mGy-cm. mGy. LIMITATIONS: None. FINDINGS: ALIGNMENT: Upper cervical scoliosis from C1-C3 to the right. Muscle spasm must be conside red. MINERALIZATION: Normal. VERTEBRAL BODIES/DISCS: Cervical spondylosis with degenerative disc disease at C5-6. VISUALIZED RIBS: No fractures. LUNG APICES AND SOFT TISSUES: No significant or acute findings. OTHER: No other significant finding. IMPRESSION: Cervical spondylosis and degenerative disc disease at C5-6. Findings suggestive of cerv ical muscle spasm. Otherwise, normal CT cervical spine. No cervical fracture. TECHNICAL DOCUMENTATION: JOB ID: [id number] Quality ID # [id number]: Final reports with documentation of one or more dose reduction techniques (e.g., Au tomated exposure control, adjustment of the mA and/or kV according to patient size, use of iterative reconstruction technique) 2010 [employer]- All Rights Reserved Reading location - IP/workstation name: [email or web address]
[2017-11-25] MEDS ORDERED: LIDOCAINE 1% INJ-PF (10 MG/ML) 30 ML SDV INJ ONE (13:34)
[2017-11-25] MEDS ORDERED: CEFTRIAXONE INJ 1000 MG VIAL IV ONE (13:35)
[2017-11-25 15:50] LABS: GLUCOSE,CSF 52 mg/dL (40-70); PROTEIN,CSF 67 mg/dL (12-60)
[2017-11-25 15:55] LABS: APPEARANCE ALL TUBES CLEAR; APPEARANCE TUBE 1 CLEAR; APPEARANCE TUBE 2 CLEAR; APPEARANCE TUBE 3 CLEAR; APPEARANCE TUBE 4 CLEAR; COLOR ALL TUBES COLORLESS; COLOR TUBE 1 COLORLESS; COLOR TUBE 2 COLORLESS; COLOR TUBE 3 COLORLESS; COLOR TUBE 4 COLORLESS; CSF TUBE NUMBER 1
[2017-11-25 15:56] LABS: RED BLOOD CELL,CSF 1725 /uL (0-10)
[2017-11-25 15:57] LABS: WHITE BLOOD CELL,CSF 4 /uL (0-5)
[2017-11-25 16:00] LABS: APPEARANCE ALL TUBES CLEAR; APPEARANCE TUBE 1 CLEAR; APPEARANCE TUBE 2 CLEAR; APPEARANCE TUBE 3 CLEAR; APPEARANCE TUBE 4 CLEAR; COLOR ALL TUBES COLORLESS; COLOR TUBE 1 COLORLESS; COLOR TUBE 2 COLORLESS; COLOR TUBE 3 COLORLESS; COLOR TUBE 4 COLORLESS; CSF TUBE NUMBER 4; RED BLOOD CELL,CSF 22 /uL (0-10)
[2017-11-25 16:02] LABS: WHITE BLOOD CELL,CSF 2 /uL (0-5)
[2017-11-25] MEDS ORDERED: IPRATROPIUM/ALBUTEROL 0.5-2.5 MG/3 ML AMPUL NEB PRN (16:47)
[2017-11-25] MEDS ORDERED: ONDANSETRON HCL INJ/PF 4 MG/2 ML SDV IV PRN (16:57)
[2017-11-25] MEDS ORDERED: ACETAMINOPHEN 325 MG TABLET PO PRN (16:57)
[2017-11-25] MEDS ORDERED: LORAZEPAM INJ 2 MG/1 ML VIAL IV PRN (17:03)
--- NOTE | 2017-11-25 18:01 | PDOC H&P ---
History of Present Illness Admission Date/PCP: ROLAND BANUELOS Patient complains of: Patient was brought to the emergency room after having falling yesterday. She was seen in the emergency room on November 24 and it appears after further workup she was sent back to the half-way but presents again today after having a seizure activity History of Present Illness: PETEY MATA is a 72 year old female Patient was brought to the emergency room after having falling yesterday. She was seen in the emergency room on November 24 and it appears after further workup she was sent back to the half-way but presents again today after having a seizure activity. The seizure was witnessed at the nursing facility. CT scan of the head and neck done reveals no acute findings. Patient is unfortunately has severe dementia and that there was no family at the bedside at the time of my exam and so all this information is obtained from the computer records. Her chart was reviewed and patient CODE STATUS is not clear. There was no CODE STATUS on the papers from the half-way so this time going to make a full code until this can be otherwise identified. Patient was also found to have a leukocytosis although no acute infection so this may be post it and likely a systemic inflammatory response. Looking at her records she also had a leukocytosis with a white count up to about 34,000 back in May and there was no source of acute infection identified. She had a lumbar puncture done which revealed RBC of 1725 in tube #1 although the last tube was 22 indicating that this was a traumatic tap total protein is 67. Patient is been admitted for observation. Past Medical History Cardiac Medical History: Reports: Hyperlipidema, Hypertension - ON MEDS Denies: Coronary Artery Disease, Myocardial Infarction Pulmonary Medical History: Denies: Asthma, Bronchitis, Chronic Obstructive Pulmonary Disease (COPD), Pneumonia Neurological Medical History: Denies: Seizures Endocrine Medical History: Reports: Hypothyroidism Denies: Diabetes Mellitus Type 1, Diabetes Mellitus Type 2 GI Medical History: Reports: Hepatitis - HEP B 73/REMISSION, Hiatal Hernia Musculoskeltal Medical History: Reports: Arthritis - RIGHT HAND AND RIGHT KNEE Psychiatric Medical History: Reports: Dementia, Depression Hematology: Denies: Anemia, Sickle Cell Disease Past Surgical History Past Surgical History: Reports: Cholecystectomy Denies: Amputation, Hysterectomy, Mastectomy, Pacemaker Social History Information Source: [facility] Records Lives with: [facility] Smoking Status: Unknown if Ever Smoked Frequency of Alcohol Use: None Hx Recreational Drug Use: No Drugs: None Hx Prescription Drug Abuse: No - Advance Directive Resuscitation Status: Full Code - By default Family History Family History: Reviewed & Not Pertinent, CAD - 2 brothers with heart disease, Malignancy - Father mesothelioma Parental Family History Reviewed: No - Unable to obtain Children Family History Reviewed: No Sibling(s) Family History Reviewed.: No - Unable to obtain Medication/Allergy Home Medications: Ferrous Sulfate [Feosol 325 mg Tablet] 325 mg PO DAILY 06/06/17 Levothyroxine Sodium [Synthroid] 125 mcg PO Q6AM 06/06/17 Multivitamin with Minerals [One Daily Plus Minerals] 1 tab PO WSUPPER 06/06/17 Omeprazole 40 mg PO DAILY 06/06/17 Levothyroxine Sodium [Synthroid 0.1 mg Tablet] 0.1 mg PO Q6AM tablet 06/12/17 Loperamide HCl [Imodium Oral Soln 1 mg/5 ml Udc] 2 mg PO Q6HP PRN udc 06/12/17 Lorazepam [Ativan 1 mg Tablet] 1 mg PO Q4HP PRN #20 tablet 06/12/17 Morphine Sulfate [Morphine 10 mg/5 ml Oral Soln Udcup] 10 mg PO Q1HP PRN 30 Days #1 bottle 06/12/17 Polyethylene Glycol 3350 [Miralax Powder 17 gm/Packet] 17 gm PO DAILYP PRN powd.pack 06/12/17 Cephalexin Monohydrate [Keflex 500 mg Capsule] 500 mg PO Q6H 10 Days capsule Allergies/Adverse Reactions: No Known Allergies Allergy (Verified 07/30/17 19:10) Review of Systems ROS unobtainable: Due to mental status Physical Exam Vital Signs: Temp Pulse Resp BP Pulse Ox 99.4 F 21 H 116/55 L 96 11/25/17 17:00 11/25/17 17:00 11/25/17 17:00 11/25/17 17:00 General appearance: PRESENT: no acute distress, other - Lethargic but easily arousable noncommunicative Head exam: PRESENT: atraumatic, normocephalic Eye exam: PRESENT: conjunctiva pink, EOMI, PERRLA. ABSENT: scleral icterus Ear exam: PRESENT: normal external ear exam Mouth exam: PRESENT: moist Neck exam: ABSENT: carotid bruit, JVD, lymphadenopathy, thyromegaly Respiratory exam: PRESENT: clear to auscultation richie. ABSENT: rales, rhonchi, wheezes Cardiovascular exam: PRESENT: RRR. ABSENT: diastolic murmur, rubs, systolic murmur Pulses: PRESENT: normal dorsalis pedis pul Vascular exam: PRESENT: normal capillary refill GI/Abdominal exam: PRESENT: normal bowel sounds, soft. ABSENT: distended, guarding, mass, organolmegaly, rebound, tenderness Rectal exam: PRESENT: deferred Extremities exam: PRESENT: full ROM. ABSENT: calf tenderness, clubbing, pedal edema Neurological exam: PRESENT: other - Sleeping but arousable. ABSENT: motor sensory deficit Psychiatric exam: PRESENT: other - Unable to evaluate. ABSENT: homicidal ideation, suicidal ideation Skin exam: PRESENT: rash - Erythematous macular plaque like rash on lower jaw. ABSENT: cyanosis Results Laboratory Results: 11/25/17 11:12 11/25/17 11:12 11/25/17 11/25/17 11/25/17 11:12 11:12 12:01 WBC 17.8 H RBC 4.25 Hgb 11.8 L Hct 35.5 L MCV 84 MCH 27.8 MCHC 33.2 RDW 14.6 H Plt Count 373 Seg Neutrophils % Not Reportable Lymphocytes % Not Reportable Monocytes % Not Reportable Eosinophils % Not Reportable Basophils % Not Reportable Absolute Neutrophils Not Reportable Absolute Lymphocytes Not Reportable Absolute Monocytes Not Reportable Absolute Eosinophils Not Reportable Absolute Basophils Not Reportable Sodium 137.2 Potassium 3.9 Chloride 107 Carbon Dioxide 21 L Anion Gap 9 BUN 16 Creatinine 0.68 Est GFR ( Amer) > 60 Est GFR (Non-Af Amer) > 60 Glucose 112 H Lactic Acid Calcium 9.3 Magnesium 2.3 Total Bilirubin 1.3 AST 60 H ALT 28 Alkaline Phosphatase 144 H Total Protein 6.2 L Albumin 3.0 L Urine Color CHRIST Urine Appearance SLIGHTLY-CLOUDY Urine pH 5.0 Ur Specific Jasper 1.024 Urine Protein NEGATIVE Urine Glucose (UA) NEGATIVE Urine Ketones 20 H Urine Blood NEGATIVE Urine Nitrite NEGATIVE Ur Leukocyte Esterase NEGATIVE Urine WBC (Auto) 1 Urine RBC (Auto) 1 Fluid Tube Number CSF Volume CSF Appearance CSF Color CSF WBC CSF RBC CSF Color (1) CSF Appearance (1) CSF Color (2) CSF Appearance (2) CSF Color (3) CSF Appearance (3) CSF Color (4) CSF Appearance (4) CSF Glucose CSF Total Protein 11/25/17 11/25/17 11/25/17 13:58 14:52 14:52 WBC RBC Hgb Hct MCV MCH MCHC RDW Plt Count Seg Neutrophils % Lymphocytes % Monocytes % Eosinophils % Basophils % Absolute Neutrophils Absolute Lymphocytes Absolute Monocytes Absolute Eosinophils Absolute Basophils Sodium Potassium Chloride Carbon Dioxide Anion Gap BUN Creatinine Est GFR ( Amer) Est GFR (Non-Af Amer) Glucose Lactic Acid 1.1 Calcium Magnesium Total Bilirubin AST ALT Alkaline Phosphatase Total Protein Albumin Urine Color Urine Appearance Urine pH Ur Specific Jasper Urine Protein Urine Glucose (UA) Urine Ketones Urine Blood Urine Nitrite Ur Leukocyte Esterase Urine WBC (Auto) Urine RBC (Auto) Fluid Tube Number 1 4 CSF Volume 4.0 4.0 CSF Appearance CLEAR CLEAR CSF Color COLORLESS COLORLESS CSF WBC 4 2 CSF RBC 1725 H 22 CSF Color (1) COLORLESS COLORLESS CSF Appearance (1) CLEAR CLEAR CSF Color (2) COLORLESS COLORLESS CSF Appearance (2) CLEAR CLEAR CSF Color (3) COLORLESS COLORLESS CSF Appearance (3) CLEAR CLEAR CSF Color (4) COLORLESS COLORLESS CSF Appearance (4) CLEAR CLEAR CSF Glucose CSF Total Protein 11/25/17 14:52 WBC RBC Hgb Hct MCV MCH MCHC RDW Plt Count Seg Neutrophils % Lymphocytes % Monocytes % Eosinophils % Basophils % Absolute Neutrophils Absolute Lymphocytes Absolute Monocytes Absolute Eosinophils Absolute Basophils Sodium Potassium Chloride Carbon Dioxide Anion Gap BUN Creatinine Est GFR ( Amer) Est GFR (Non-Af Amer) Glucose Lactic Acid Calcium Magnesium Total Bilirubin AST ALT Alkaline Phosphatase Total Protein Albumin Urine Color Urine Appearance Urine pH Ur Specific Jasper Urine Protein Urine Glucose (UA) Urine Ketones Urine Blood Urine Nitrite Ur Leukocyte Esterase Urine WBC (Auto) Urine RBC (Auto) Fluid Tube Number CSF Volume CSF Appearance CSF Color CSF WBC CSF RBC CSF Color (1) CSF Appearance (1) CSF Color (2) CSF Appearance (2) CSF Color (3) CSF Appearance (3) CSF Color (4) CSF Appearance (4) CSF Glucose 52 CSF Total Protein 67 H Impressions: Chest X-Ray 11/25/17 11:21 IMPRESSION: NO ACUTE RADIOGRAPHIC FINDING IN THE CHEST. Head CT 11/25/17 11:21 IMPRESSION: 1. No acute intracranial findings. 2. Encephalomalacia of the left occipital and temporal lobes, sequelae of prior infarcts. 3. Mild chronic microvascular ischemic disease. EVIDENCE OF ACUTE STROKE: NO. Cervical Spine CT 11/25/17 11:22 IMPRESSION: Cervical spondylosis and degenerative disc disease at C5-6. Findings suggestive of cervical muscle spasm. Otherwise, normal CT cervical spine. No cervical fracture. Assessment & Plan - Diagnosis (1) Seizure Is this a current diagnosis for this admission?: Yes Plan: Patient will be placed on seizure precaution. The seizure activity is likely sequela of her fall. CT scan shows no hemorrhage or bleeding. At this time no antiepileptic medicine is indicated (2) SIRS (systemic inflammatory response syndrome) Is this a current diagnosis for this admission?: Yes Plan: Likely post ictal as well as secondary to the fall. She did receive a dose of ceftriaxone in the emergency room today but at this point I will hold off continuing any antibiotics (3) Fall Is this a current diagnosis for this admission?: Yes Plan: CT scan and other imaging studies show no evidence of fractures - Time Time Spent: 50 to 70 Minutes Medications reviewed and adjusted accordingly: Yes Anticipated discharge: SNF Within: within 48 hours - Inpatient Certification Based on my medical assessment, after consideration of the patient's comorbidities, presenting symptoms, or acuity I expect that the services needed warrant INPATIENT care.: Yes Medical Necessity: Significant Comorbidiites Make Outpatient Treatment Too Risky , Need for Neurological Checks, Risk of Complication if Not Cared For in Hospital
--- NOTE | 2017-11-25 19:21 | EKG REPORT ---
SEVERITY:- NORMAL ECG - SINUS RHYTHM : Confirmed by: Lisbet Campos 25-Nov-2017 19:19:53
[2017-11-25] MEDS: NORMAL SALINE 1000 ML 1,000 ML IV PRN (20:18)
[2017-11-26 05:32] LABS: HEMATOCRIT 32.4 % (36.0-47.0); HEMOGLOBIN 10.7 g/dL (12.0-15.5); MEAN CORPUSCULAR HEMOGLOBIN 27.7 pg (27.0-33.4); MEAN CORPUSCULAR HGB CONC 33.1 g/dL (32.0-36.0); MEAN CORPUSCULAR VOLUME 84 fl (80-97); PLATELET COUNT 281 10^3/uL (150-450); RED BLOOD COUNT 3.88 10^6/uL (3.72-5.28); RED CELL DISTRIBUTION WIDTH 14.6 % (11.5-14.0); WHITE BLOOD COUNT 12.4 10^3/uL (4.0-10.5)
[2017-11-26 05:59] LABS: BLOOD UREA NITROGEN 18 mg/dL (7-20); CALCIUM 8.9 mg/dL (8.4-10.2); GLUCOSE 86 mg/dL (75-110)
[2017-11-26 06:00] LABS: ANION GAP 5 (5-19); CARBON DIOXIDE 24 mmol/L (22-30); CHLORIDE 110 mmol/L (98-107); POTASSIUM 4.2 mmol/L (3.6-5.0); SODIUM 139.1 mmol/L (137-145)
[2017-11-26] MEDS: DOCUSATE SODIUM 100 MG CAPSULE PO SCH (10:39)
[2017-11-26] MEDS: ENOXAPARIN SODIUM INJ 40 MG/0.4 ML DISP.SYRIN SUBCUT SCH (10:40)
[2017-11-26] MEDS ORDERED: MORPHINE SULFATE 10 MG/5 ML ORAL SOLUTION UDCUP PO PRN (15:00)
--- NOTE | 2017-11-26 15:10 | PDOC PROGRESS REPORT ---
Subjective Progress Note for:: 11/26/17 Subjective:: Patient is more awake and alert although still not communicative, she is still not back to baseline as per report Reason For Visit: RECENT FALL,SIRS,SEIZURE Physical Exam Vital Signs: Temp Pulse Resp BP Pulse Ox 98.7 F 75 20 114/47 L 98 11/26/17 11:44 11/26/17 11:44 11/26/17 11:44 11/26/17 11:44 11/26/17 11:44 Intake & Output 11/25/17 11/26/17 11/27/17 06:59 06:59 06:59 Intake Total 0 1000 Output Total 325 Balance -325 1000 Weight 64 kg General appearance: PRESENT: no acute distress, cooperative, thin, other - awake but not verbally interactive Head exam: PRESENT: atraumatic, normocephalic Eye exam: PRESENT: conjunctiva pink, EOMI, PERRLA. ABSENT: scleral icterus Ear exam: PRESENT: normal external ear exam Mouth exam: PRESENT: moist, tongue midline Neck exam: ABSENT: carotid bruit, JVD, lymphadenopathy, thyromegaly Respiratory exam: PRESENT: clear to auscultation richie. ABSENT: rales, rhonchi, wheezes Cardiovascular exam: PRESENT: RRR. ABSENT: diastolic murmur, rubs, systolic murmur Pulses: PRESENT: normal dorsalis pedis pul Vascular exam: PRESENT: normal capillary refill GI/Abdominal exam: PRESENT: normal bowel sounds, soft. ABSENT: distended, guarding, mass, organolmegaly, rebound, tenderness Rectal exam: PRESENT: deferred Extremities exam: PRESENT: full ROM. ABSENT: calf tenderness, clubbing, pedal edema Neurological exam: PRESENT: alert, awake, oriented to person, oriented to place , oriented to time, oriented to situation, CN II-XII grossly intact. ABSENT: motor sensory deficit Psychiatric exam: PRESENT: appropriate affect, normal mood. ABSENT: homicidal ideation, suicidal ideation Skin exam: PRESENT: dry, intact, warm. ABSENT: cyanosis, rash Results Laboratory Results: 11/26/17 04:27 11/26/17 04:27 11/26/17 11/26/17 04:27 04:27 WBC 12.4 H RBC 3.88 Hgb 10.7 L Hct 32.4 L MCV 84 MCH 27.7 MCHC 33.1 RDW 14.6 H Plt Count 281 Sodium 139.1 Potassium 4.2 Chloride 110 H Carbon Dioxide 24 Anion Gap 5 BUN 18 Creatinine 0.70 Est GFR ( Amer) > 60 Est GFR (Non-Af Amer) > 60 Glucose 86 Calcium 8.9 Impressions: Chest X-Ray 11/25/17 11:21 IMPRESSION: NO ACUTE RADIOGRAPHIC FINDING IN THE CHEST. Head CT 11/25/17 11:21 IMPRESSION: 1. No acute intracranial findings. 2. Encephalomalacia of the left occipital and temporal lobes, sequelae of prior infarcts. 3. Mild chronic microvascular ischemic disease. EVIDENCE OF ACUTE STROKE: NO. Cervical Spine CT 11/25/17 11:22 IMPRESSION: Cervical spondylosis and degenerative disc disease at C5-6. Findings suggestive of cervical muscle spasm. Otherwise, normal CT cervical spine. No cervical fracture. Assessment & Plan - Diagnosis (1) Seizure Is this a current diagnosis for this admission?: Yes Plan: Patient has had no further seizure activities however she apparently still not back to baseline. She is still more lethargic although was awake at the time of my exam. I have opted to keep her overnight and monitor for 1 more day prior to discharge (2) SIRS (systemic inflammatory response syndrome) Is this a current diagnosis for this admission?: Yes Plan: Likely post ictal as well as secondary to the fall. She received a dose of ceftriaxone in the emergency room no further antibiotics since then. Will repeat be seen in a.m. (3) Fall Is this a current diagnosis for this admission?: Yes Plan: CT scan and other imaging studies show no evidence of fractures Will obtain physical therapy eval in a.m. - Time Time Spent with patient: 15-24 minutes Medications reviewed and adjusted accordingly: Yes Anticipated discharge: SNF Within: within 24 hours - Inpatient Certification Based on my medical assessment, after consideration of the patient's comorbidities, presenting symptoms, or acuity I expect that the services needed warrant INPATIENT care.: Yes Medical Necessity: Significant Comorbidiites Make Outpatient Treatment Too Risky , Need For IV Fluids - Plan Summary Plan Summary: CSF cultures are negative. There is no sign of infection. We will continue to hold off on any antibiotics
[2017-11-26] MEDS: FERROUS SULFATE 325 MG TABLET PO SCH (17:56)
[2017-11-26] MEDS: LEVOTHYROXINE SODIUM 0.1 MG TABLET PO SCH (17:56)
[2017-11-26] MEDS ORDERED: MULTIVITAMIN TABLET PO SCH (18:00)
[2017-11-26] MEDS ORDERED: (PENDING PHARMACY ID) (Multivit-Min/Iron/Folic/Lutein [Centrum Silver Women Tablet] 1 EACH PO SCH (18:00)
[2017-11-27] MEDS: NORMAL SALINE 1000 ML 1,000 ML IV PRN (01:32)
[2017-11-27] MEDS: LANSOPRAZOLE 30 MG TAB.RAP.DR PO SCH ×2 (05:38→05:48)
[2017-11-27] MEDS: LEVOTHYROXINE SODIUM 0.1 MG TABLET PO SCH ×2 (05:38→05:56)
[2017-11-27 06:03] LABS: ABSOLUTE BASOPHILS # (AUTO) 0.1 10^3/uL (0.0-0.2); ABSOLUTE LYMPHOCYTES (AUTO) 1.5 10^3/uL (0.5-4.7); ABSOLUTE MONOCYTES (AUTO) 0.7 10^3/uL (0.1-1.4); ABSOLUTE NEUT (AUTO) 7.3 10^3/uL (1.7-8.2); BASOPHILS % (AUTO) 0.7 % (0-2); EOSINOPHILS % (AUTO) 0.2 % (0-6); HEMATOCRIT 30.6 % (36.0-47.0); HEMOGLOBIN 10.2 g/dL (12.0-15.5); LYMPHOCYTES % (AUTO) 15.9 % (13-45); MEAN CORPUSCULAR HGB CONC 33.3 g/dL (32.0-36.0); MEAN CORPUSCULAR VOLUME 84 fl (80-97); PLATELET COUNT 272 10^3/uL (150-450); RED BLOOD COUNT 3.64 10^6/uL (3.72-5.28); RED CELL DISTRIBUTION WIDTH 14.5 % (11.5-14.0); SEGMENTED NEUTROPHILS % (AUTO) 76.2 % (42-78); TOTAL CELLS COUNTED % (AUTO) 100 %; WHITE BLOOD COUNT 9.6 10^3/uL (4.0-10.5)
[2017-11-27 06:48] LABS: ANION GAP 5 (5-19); BLOOD UREA NITROGEN 16 mg/dL (7-20); CALCIUM 8.4 mg/dL (8.4-10.2); CARBON DIOXIDE 23 mmol/L (22-30); CHLORIDE 113 mmol/L (98-107); GLUCOSE 69 mg/dL (75-110); SODIUM 140.6 mmol/L (137-145)
[2017-11-27] MEDS: DOCUSATE SODIUM 100 MG CAPSULE PO SCH (09:23)
[2017-11-27] MEDS: FERROUS SULFATE 325 MG TABLET PO SCH (09:23)
[2017-11-27] MEDS: ENOXAPARIN SODIUM INJ 40 MG/0.4 ML DISP.SYRIN SUBCUT SCH (09:25)
[2017-11-27] MEDS ORDERED: (PENDING PHARMACY ID) (Omeprazole Magnesium [Prilosec Otc] 40 MG) PO SCH (10:00)
--- NOTE | 2017-11-27 10:01 | PDOC TRANSFER SUMMARY ---
General - Admit/Disc Date/PCP Admission Date/Primary Care Provider: 11/25/17 17:48 ROLAND BANUELOS Discharge Date: 11/27/17 - Discharge Diagnosis (1) Seizure Is this a current diagnosis for this admission?: Yes (2) SIRS (systemic inflammatory response syndrome) Is this a current diagnosis for this admission?: Yes (3) Fall Is this a current diagnosis for this admission?: Yes (4) Acute metabolic encephalopathy Is this a current diagnosis for this admission?: Yes (5) Anemia Is this a current diagnosis for this admission?: Yes - Additional Information Resuscitation Status: Full Code - By default Discharge Diet: Cardiac Discharge Activity: Activity As Tolerated Prescriptions: Lorazepam [Ativan 1 mg Tablet] 1 mg PO Q4HP PRN #14 tablet PRN Reason: FOR ANXIETY Morphine Sulfate [Morphine 10 mg/5 ml Oral Soln Udcup] 10 mg PO Q4HP PRN #120 udc PRN Reason: For Pain Home Medications: Ferrous Sulfate [Feosol 325 mg Tablet] 325 mg PO DAILY 11/26/17 Levothyroxine Sodium [Synthroid] 100 mcg PO DAILY 11/26/17 Loperamide HCl [Imodium Oral Soln 1 mg/5 ml Udc] 2 mg PO Q6HP PRN 11/26/17 Memantine HCl [Namenda 10 mg Tablet] 10 mg PO Q12 11/26/17 Multivit-Min/Iron/Folic/Lutein [Centrum Silver Women Tablet] 1 each PO QPM 11/26 Omeprazole Magnesium [Prilosec Otc] 40 mg PO DAILY 11/26/17 Polyethylene Glycol 3350 [Miralax Powder 17 gm/Packet] 1 packet PO DAILYP PRN Lorazepam [Ativan 1 mg Tablet] 1 mg PO Q4HP PRN #14 tablet 11/27/17 Morphine Sulfate [Morphine 10 mg/5 ml Oral Soln Udcup] 10 mg PO Q4HP PRN #120 udc 11/27/17 History of Present Illness Admission Date/PCP: 11/25/17 17:48 ROLAND BANUELOS History of Present Illness: PETEY MATA is a 72 year old female Patient was brought to the emergency room after having falling yesterday. She was seen in the emergency room on November 24 and it appears after further workup she was sent [facility] the [facility] but presents again today after having a seizure activity. The seizure was witnessed at the nursing facility. CT scan of the head and neck done reveals no acute findings. Patient is unfortunately has severe dementia and that there was no family at the bedside at the time of my exam and so all this information is obtained from the computer records. Her chart was reviewed and patient CODE STATUS is not clear. There was no CODE STATUS on the papers from the [facility] so this time going to make a full code until this can be otherwise identified. Patient was also found to have a leukocytosis although no acute infection so this may be post it and likely a systemic inflammatory response. Looking at her records she also had a leukocytosis with a white count up to about 34,000 back in May and there was no source of acute infection identified. She had a lumbar puncture done which revealed RBC of 1725 in tube #1 although the last tube was 22 indicating that this was a traumatic tap total protein is 67. Hospital Course Hospital Course: This patient presents emergency room with complaints of a seizure activity pre- hospitalization. She had falling the previous day. Patient was also found to have a leukocytosis however there was no source of infection. She received 1 dose of antibiotic in the emergency room but has received no further antibiotics. She was monitored on telemetry floor and patient had no further seizure activity throughout her hospital stay. Her leukocytosis has resolved. Her mental status also appears to be back to her baseline as patient is awake and alert although confused. She has been seen by physical therapy today and she is to continue with physical therapy in the [facility]. At this time no further inpatient hospitalization care as needed the patient is been discharged back to rehab Physical Exam Vital Signs: Temp Pulse Resp BP Pulse Ox 98.1 F 67 18 131/59 H 100 11/27/17 07:40 11/27/17 07:40 11/27/17 07:40 11/27/17 07:40 11/27/17 07:40 Intake & Output 11/26/17 11/27/17 11/28/17 06:59 06:59 06:59 Intake Total 0 1025 Output Total 325 525 Balance -325 500 Weight 64 kg 69.6 kg General appearance: PRESENT: no acute distress, well-developed. ABSENT: cooperative Head exam: PRESENT: atraumatic, normocephalic Eye exam: PRESENT: conjunctiva pink, EOMI, PERRLA. ABSENT: scleral icterus Ear exam: PRESENT: normal external ear exam Mouth exam: PRESENT: moist Neck exam: ABSENT: carotid bruit, JVD, lymphadenopathy, thyromegaly Respiratory exam: PRESENT: clear to auscultation richie. ABSENT: rales, rhonchi, wheezes Cardiovascular exam: PRESENT: RRR. ABSENT: diastolic murmur, rubs, systolic murmur Pulses: PRESENT: normal dorsalis pedis pul Vascular exam: PRESENT: normal capillary refill GI/Abdominal exam: PRESENT: normal bowel sounds, soft. ABSENT: distended, guarding, mass, organolmegaly, rebound, tenderness Rectal exam: PRESENT: deferred Extremities exam: PRESENT: full ROM. ABSENT: calf tenderness, clubbing, pedal edema Neurological exam: PRESENT: alert, awake. ABSENT: motor sensory deficit Psychiatric exam: PRESENT: appropriate affect, normal mood. ABSENT: homicidal ideation, suicidal ideation Skin exam: PRESENT: dry, intact, rash - erythematous, fleshy lesions mandibular area, warm. ABSENT: cyanosis Results Laboratory Results: 11/27/17 04:00 11/27/17 04:00 11/27/17 11/27/17 04:00 04:00 WBC 9.6 RBC 3.64 L Hgb 10.2 L Hct 30.6 L MCV 84 MCH 28.0 MCHC 33.3 RDW 14.5 H Plt Count 272 Seg Neutrophils % 76.2 Lymphocytes % 15.9 Monocytes % 7.0 Eosinophils % 0.2 Basophils % 0.7 Absolute Neutrophils 7.3 Absolute Lymphocytes 1.5 Absolute Monocytes 0.7 Absolute Eosinophils 0.0 Absolute Basophils 0.1 Sodium 140.6 Potassium 4.0 Chloride 113 H Carbon Dioxide 23 Anion Gap 5 BUN 16 Creatinine 0.52 Est GFR ( Amer) > 60 Est GFR (Non-Af Amer) > 60 Glucose 69 L Calcium 8.4 Impressions: Chest X-Ray 11/25/17 11:21 IMPRESSION: NO ACUTE RADIOGRAPHIC FINDING IN THE CHEST. Head CT 11/25/17 11:21 IMPRESSION: 1. No acute intracranial findings. 2. Encephalomalacia of the left occipital and temporal lobes, sequelae of prior infarcts. 3. Mild chronic microvascular ischemic disease. EVIDENCE OF ACUTE STROKE: NO. Cervical Spine CT 11/25/17 11:22 IMPRESSION: Cervical spondylosis and degenerative disc disease at C5-6. Findings suggestive of cervical muscle spasm. Otherwise, normal CT cervical spine. No cervical fracture. Transfer Plan - Disposition Transfer Plan: [facility] - Time Spent with Patient Time spent with patient: Less than 30 Minutes Qualifiers - * PATIENT BEING DISCHARGED WITH ANY OF THE FOLLOWING DIAGNOSIS: No Plan Time Spent: Less than 30 Minutes
[2017-11-27 12:14] VITALS: BP 128/52
== END 2017-11-27 12:35 ==
LOC: ER 11:01 → EH 17:48 → 4N 19:16
PROVIDERS: ADMIT Emergency Medicine; ATTEND Emergency Medicine
PROC: 009U3ZX Drainage of Spinal Canal, Percutaneous Approach, Diagnostic (ICD-10-PCS; principal; 2017-11-25)
DX: R56.9 Unspecified convulsions (principal); R65.10 Systemic inflammatory response syndrome (SIRS) of non-infectious origin without acute organ dysfunction; S00.83XA Contusion of other part of head, initial encounter; W05.0XXA Fall from non-moving wheelchair, initial encounter; G93.41 Metabolic encephalopathy; D64.9 Anemia, unspecified; F03.90 Unspecified dementia, unspecified severity, without behavioral disturbance, psychotic disturbance, mood disturbance, and anxiety; R21 Rash and other nonspecific skin eruption; L53.9 Erythematous condition, unspecified; Z82.49 Family history of ischemic heart disease and other diseases of the circulatory system; Z86.73 Personal history of transient ischemic attack (TIA), and cerebral infarction without residual deficits; Z79.899 Other long term (current) drug therapy; Z86.19 Personal history of other infectious and parasitic diseases; Z90.49 Acquired absence of other specified parts of digestive tract
CPT/HCPCS: 93005; 99285; 96365; 36415 ×3; 87040; 87070; 87045; 87086; 87205; 83735; 85025 ×2; 85027; 89050; 82945; 84157; 80048 ×2; 80053; 81001; 80307; 83605; 71045; 70450; 72125; 93010; 97116; 97163; 62270; A9270 ×4; J3490; J1650 ×2; J0696; J7030 ×2; G8978; G8979; G0378

== ENCOUNTER 2018-01-13 03:33 | Emergency (ER) | payer MEDICARE, OTHER, MEDICAID ==
[2018-01-13 04:05] LABS: ABSOLUTE BASOPHILS # (AUTO) 0.1 10^3/uL (0.0-0.2); ABSOLUTE MONOCYTES (AUTO) 1.1 10^3/uL (0.1-1.4); EOSINOPHILS % (AUTO) 0.1 % (0-6); TOTAL CELLS COUNTED % (AUTO) 100 %
[2018-01-13 04:09] LABS: ABSOLUTE LYMPHOCYTES (AUTO) 1.8 10^3/uL (0.5-4.7); ABSOLUTE NEUT (AUTO) 8.8 10^3/uL (1.7-8.2); BASOPHILS % (AUTO) 0.7 % (0-2); HEMATOCRIT 41.4 % (36.0-47.0); HEMOGLOBIN 13.2 g/dL (12.0-15.5); LYMPHOCYTES % (AUTO) 15.6 % (13-45); MEAN CORPUSCULAR HEMOGLOBIN 28.1 pg (27.0-33.4); MEAN CORPUSCULAR HGB CONC 31.8 g/dL (32.0-36.0); MEAN CORPUSCULAR VOLUME 88 fl (80-97); MONOCYTES % (AUTO) 9.6 % (3-13); PLATELET COUNT 278 10^3/uL (150-450); RED BLOOD COUNT 4.69 10^6/uL (3.72-5.28); WHITE BLOOD COUNT 11.8 10^3/uL (4.0-10.5)
[2018-01-13 04:17] LABS: ANION GAP 9 (5-19); BLOOD UREA NITROGEN 20 mg/dL (7-20); CALCIUM 8.8 mg/dL (8.4-10.2); CARBON DIOXIDE 24 mmol/L (22-30); CHLORIDE 110 mmol/L (98-107); GLUCOSE 104 mg/dL (75-110); POTASSIUM 4.3 mmol/L (3.6-5.0); SODIUM 142.8 mmol/L (137-145)
--- NOTE | 2018-01-13 04:26 | RADIOLOGY REPORT (SQ) ---
EXAM DESCRIPTION: XR CHEST 1 VIEW COMPLETED DATE/TME: 01/13/2018 03:51 CLINICAL HISTORY: 72 years Female, altered mental status COMPARISON:11/25/2017 NUMBER OF VIEWS/TECHNIQUE: 1/AP FINDINGS: Adequate lung volume, clear parenchyma, normal cardiac silhouette, atherosclerosis, and intact bony thorax. IMPRESSION: No acute cardiopulmonary findings.
--- NOTE | 2018-01-13 04:32 | RADIOLOGY REPORT (SQ) ---
EXAM DESCRIPTION: CT HEAD WITHOUT IV CONTRAST COMPLETED DATE/TME: 01/13/2018 03:50 CLINICAL HISTORY: 72 years Female, trauma COMPARISON:11/25/2017 TECHNIQUE: No contrast. Coronal and sagittal reformat. This exam was performed according to our departmental dose-optimization program, which includes automated exposure control, adjustment of the mA and/or kV according to patient size and/or use of iterative reconstruction technique. FINDINGS: Large left posterior parieto-occipital encephalomalacia/infarct involving the territory of the left posterior cerebral artery and cortical/posterior components of the left middle cerebral artery with ex vacuo enlargement of the occipital horn of the left lateral ventricle. No hemorrhage. No mass, mass effect, or midline shift. White matter microangiopathy, parenchymal volume loss, and atherosclerosis. Brain and extra-axial structures appear otherwise intact. IMPRESSION: No acute findings. 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
--- NOTE | 2018-01-13 04:35 | RADIOLOGY REPORT (SQ) ---
CLINICAL HISTORY: trauma COMPARISON: None. 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 FINDINGS: There is no acute fracture. Alignment is anatomic. There is mild diffuse facet arthritis.There is incomplete posterior fusion of C1. Disc spaces are maintained. Vertebral body heights are preserved. Soft tissues are unremarkable. IMPRESSION: No acute fracture or subluxation.
--- NOTE | 2018-01-13 04:44 | ER Document Report ---
ED General - General Chief Complaint: Fall Injury Stated Complaint: FALL,ALTERED MENTAL STATUS Time Seen by Provider: 01/13/18 03:43 Notes: Patient is a pleasant 72-year-old female presents with complaint of fall. Patient was apparently found down on the ground alf. There is report that the patient was with her earlier. takes her home every day and brings back to alf. is concerned about some weakness. did come to the hospital and speak with me. Says the patient was very weak at home today. You she is up and walk around without any difficulty. Today she was more weak and had difficulty walking without support. He says that she did not have fever however she just appeared weak and pale and unwell. He took her back to alf so that she be watched medically and then tonight she was found on the floor. Fall was not witnessed. She has had one seizure in the past. No seizure activity witnessed today. Upon arrival to the ED patient is awake and alert and is actually somewhat energetic. She denies having any pain. She follows all commands appropriately. She has any weakness or numbness in her extremities. She has no other complaints at this time. TRAVEL OUTSIDE OF THE [place] IN LAST 30 DAYS: No - Related Data Allergies/Adverse Reactions: No Known Allergies Allergy (Verified 07/30/17 19:10) Past Medical History - Social History Smoking Status: Unknown if Ever Smoked Frequency of alcohol use: None Drug Abuse: None Family History: Reviewed & Not Pertinent, CAD - 2 brothers with heart disease, Malignancy - Father mesothelioma Patient has suicidal ideation: No Patient has homicidal ideation: No - Past Medical History Cardiac Medical History: Reports: Hx Hypercholesterolemia, Hx Hypertension - ON MEDS Denies: Hx Coronary Artery Disease, Hx Heart Attack Pulmonary Medical History: Denies: Hx Asthma, Hx Bronchitis, Hx COPD, Hx Pneumonia Neurological Medical History: Reports: Hx Cerebrovascular Accident, Hx Seizures - 11/25/17 Endocrine Medical History: Reports: Hx Hypothyroidism. 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 Denies: Hx Ulcer Musculoskeletal Medical History: Reports Hx Arthritis - RIGHT HAND AND RIGHT KNEE Psychiatric Medical History: Reports: Hx Anxiety, Hx Dementia, Hx Depression Infectious Medical History: Reports: Hx Hepatitis - HEP B 73/REMISSION Past Surgical History: Reports: Hx Cholecystectomy. Denies: Hx Hysterectomy, Hx Mastectomy, Hx Open Heart Surgery, Hx Pacemaker - Immunizations Hx Diphtheria, Pertussis, Tetanus Vaccination: Yes Hx Pneumococcal Vaccination: 11/20/14 Review of Systems - Review of Systems Notes: My Normal Review Basic REVIEW OF SYSTEMS: CONSTITUTIONAL : Denies fever, chills, or sweats. Denies recent illness. EENT: Denies eye, ear, throat, or mouth pain or symptoms. Denies nasal or sinus congestion. CARDIOVASCULAR: Denies chest pain. RESPIRATORY: Denies cough, cold, or chest congestion. Denies shortness of breath, difficulty breathing, or wheezing. GASTROINTESTINAL: Denies abdominal pain. Denies nausea, vomiting, or diarrhea. Denies constipation. Last BM: GENITOURINARY: Denies difficulty urinating, painful urination, burning, frequency, or blood in urine. FEMALE GENITOURINARY: Denies vaginal bleeding, abnormal or irregular periods. LMP: MUSCULOSKELETAL: Denies neck or back pain or joint pain or swelling. SKIN: Denies rash or skin lesions. NEUROLOGICAL: Possible loss of consciousness. Found on floor at alf. ALL OTHER SYSTEMS REVIEWED AND NEGATIVE. Physical Exam - Vital signs Vitals: Resp Pulse Ox 20 100 01/13/18 03:38 01/13/18 03:38 - Notes Notes: General Appearance: Well nourished, alert, cooperative, no acute distress, no obvious discomfort. Vitals: reviewed, See vital signs table. Head: no swelling or tenderness to the head Eyes: PERRL, EOMI, Conjuctiva clear Mouth: No decreasd moisture. No evidence of tongue biting. Throat: No tonsillar inflammation, No airway obstruction, No lymphadenopathy Neck: Supple, no neck tenderness, No thyromegaly. Patient in cervical collar. Back: No pain to palpation of thoracic or lumbar spine. No step-offs or deformities. Lungs: No wheezing, No rales, No rhonci, No accessory muscle use, good air exchange bilaterally. Heart: Normal rate, Regular rythm, No murmur, no rub Abdomen: Normal BS, soft, No rigidity, No abdominal tenderness, No guarding, no rebound, no abdominal masses, no organomegaly Extremities: strength 5/5 in all extremities, good pulses in all extremities, no swelling or tenderness in the extremities, no edema. Able to put all 4 extremities with full range of motion without any pain. No swelling or signs of trauma to the extremities. Skin: warm, dry, appropriate color, no rash Neuro: speech clear, oriented x 2, normal affect, responds appropriately to questions. Cranial nerves II through XII are intact. Patient moves all extremities without difficulty. Course - Re-evaluation Re-evalutation: 01/14/18 05:08 Patient is appearing since arrival to the ED here. She is very responsive to this will answer questions. I do not see any signs of infection or workup. No evidence of CO. Troponin is normal. Feel that she is safe to be discharged home. I informed to bring her back to the ER immediately if she has fevers, worsening weakness, or if she appears unwell. agrees with plan and patient will be discharged home. There is a previous history of seizure. I do not suspect seizure at this time as the patient does not have any signs of tongue biting and no signs of loss of urinary continence. Dictation of this chart was performed using voice recognition software; therefore, there may be some unintended grammatical errors. - Vital Signs Vital signs: Temp Pulse Resp BP Pulse Ox 99.1 F 87 18 136/62 H 100 01/13/18 07:40 01/13/18 07:40 01/13/18 07:40 01/13/18 07:40 01/13/18 07:40 - Laboratory Result Diagrams: 01/13/18 03:55 01/13/18 03:55 Laboratory results interpreted by me: 01/13/18 01/13/18 01/13/18 03:55 03:55 04:32 WBC 11.8 H MCHC 31.8 L RDW 19.0 H Absolute Neutrophils 8.8 H Chloride 110 H Urine Protein 30 H Urine Bilirubin SMALL H Urine Urobilinogen 2.0 H Urine Ascorbic Acid 40 H - EKG Interpretation by Me Additional EKG results interpreted by me: 01/13/18 04:46 EKG is reviewed and interpreted by me. EKG is read by the computer as atrial fibrillation however there is a lot of baseline artifact and when I look at leads that do not have much artifact it appears that the patient has discernible P waves. He can see this in lead V5. I think patient most likely sinus rhythm with a rate of about [address] segment elevation or depression. No ischemic T wave inversions. MA interval, QRS duration, QT intervals are within normal range. Discharge - Discharge Clinical Impression: Fall Qualifiers: Encounter type: initial encounter Qualified Code(s): W19.XXXA - Unspecified fall, initial encounter Condition: Good Disposition: HOME, SELF-CARE Additional Instructions: Please continue to encourage fluids and food. Please do not alow Mrs. Sanchez walk without some form assistance as she has had several falls in the past. Please return to the ER immediately if she develops fevers, confusion compared to her baseline, or if she appears unwell. Please have her doctor reassess her on Monday. Referrals: ROLAND BANUELOS MD [Primary Care Provider] - Follow up as needed
[2018-01-13 05:03] LABS: APPEARANCE,URINE SLIGHTLY-CLOUDY; BILIRUBIN,URINE SMALL (NEGATIVE); GLUCOSE, URINE NEGATIVE (NEGATIVE); KETONES,URINE NEGATIVE (NEGATIVE); LEUKOCYTE ESTERASE,URINE NEGATIVE (NEGATIVE); NITRITE,URINE NEGATIVE (NEGATIVE); PROTEIN,URINE 30 mg/dL (NEGATIVE); URINE SPECIFIC GRAVITY 1.025
[2018-01-13 05:07] LABS: COLOR,URINE DARK YELLOW
[2018-01-13 07:47] VITALS: BP 136/62
--- NOTE | 2018-01-13 08:02 | EKG REPORT ---
SEVERITY:- ABNORMAL ECG - ATRIAL FLUTTER : Confirmed by: Marilou Klein MD 13-Jan-2018 08:01:30
== END 2018-01-13 07:40 | disposition home or self-care (01) ==
LOC: ER 03:33
DX: Z04.3 Encounter for examination and observation following other accident (principal); R53.1 Weakness; R26.2 Difficulty in walking, not elsewhere classified; I10 Essential (primary) hypertension; Z86.73 Personal history of transient ischemic attack (TIA), and cerebral infarction without residual deficits
CPT/HCPCS: 36415; 70450; 71045; 72125; 80048; 81001; 84484; 85025; 93005; 93010; 99285

== ENCOUNTER 2018-01-14 17:27 | Emergency (ER) | payer MEDICARE, MEDICAID ==
[2018-01-14] MEDS ORDERED: RINGERS SOLUTION,LACTATED 1,000 ML IV ONE ×2 (17:58→18:46)
[2018-01-14 18:21] LABS: ABSOLUTE MONOCYTES (AUTO) 1.1 10^3/uL (0.1-1.4); ABSOLUTE NEUT (AUTO) 11.5 10^3/uL (1.7-8.2); BASOPHILS % (AUTO) 0.2 % (0-2); HEMATOCRIT 35.7 % (36.0-47.0); HEMOGLOBIN 11.4 g/dL (12.0-15.5); LYMPHOCYTES % (AUTO) 7.6 % (13-45); MEAN CORPUSCULAR HEMOGLOBIN 28.3 pg (27.0-33.4); MEAN CORPUSCULAR VOLUME 89 fl (80-97); MONOCYTES % (AUTO) 8.2 % (3-13); PLATELET COUNT 261 10^3/uL (150-450); RED BLOOD COUNT 4.03 10^6/uL (3.72-5.28); RED CELL DISTRIBUTION WIDTH 19.1 % (11.5-14.0); TOTAL CELLS COUNTED % (AUTO) 100 %; WHITE BLOOD COUNT 13.6 10^3/uL (4.0-10.5)
[2018-01-14 18:26] LABS: INTERNATIONAL RATION (INR) 1.33; PROTHROMBIN TIME 17.1 SEC (11.4-15.4)
--- NOTE | 2018-01-14 18:30 | ER Document Report ---
ED General - General Chief Complaint: Altered Mental Status Stated Complaint: ALTERED MENTAL STATUS Time Seen by Provider: 01/14/18 17:32 Notes: Patient is a 72-year-old female with dementia that presents to the emergency department for chief complaint of altered mental status. Patient currently resides at a nursing facility, and per report the patient was altered, and was less responsive than usual, and has decreased oral intake over the last 2 days, at the [facility] so they decided to transfer her to the emergency department. At this time the patient is not answering questions, or responding to verbal stimuli, but will open eyes to noxious stimuli, and move all extremities, with noxious stimuli. No other history obtainable at this time other than the patient was recently in the emergency department after a fall that she had at the [facility], she was discharged home from the emergency department almost 2 days ago, after negative head CT, and unremarkable workup per prior notes. Past Medical History: CVA, hypothyroidism, GERD, dementia Past Surgical History: Not obtainable at this time Social History: Currently resides at a nursing facility, no current alcohol or drug use Family History: Reviewed and noncontributory for presenting illness Allergies: Reviewed, see documented allergy list. REVIEW OF SYSTEMS: Complete review of systems is not obtainable at this time secondary to the patient's dementia and altered mental status PHYSICAL EXAMINATION: Vital signs reviewed, nursing noted reviewed. GENERAL: Elderly female, somnolent, decreased responsiveness. HEAD: Atraumatic, normocephalic. EYES: Eyes appear normal, extraocular movements intact, sclera anicteric, conjunctiva are normal. ENT: nares patent, oropharynx clear without exudates. Moist mucous membranes. NECK: Normal range of motion, supple without lymphadenopathy LUNGS: Breath sounds clear to auscultation bilaterally and equal. No wheezes rales or rhonchi. HEART: Heart rate tachycardic, regular rhythm ABDOMEN: Soft, patient groans when palpated in the suprapubic region of the abdomen, normoactive bowel sounds. No rebound, guarding, or rigidity. No masses appreciated. EXTREMITIES: Nontender, trace bilateral pedal edema, patient will move all extremities with noxious stimuli NEUROLOGICAL: GCS 10, moves all extremities spontaneously Motor and sensory grossly intact on exam. PSYCH: Somnolent, decrease responsiveness. SKIN: Warm, Dry, normal turgor, no rashes or lesions noted on exposed skin TRAVEL OUTSIDE OF THE [place] IN LAST 30 DAYS: No - Related Data Allergies/Adverse Reactions: No Known Allergies Allergy (Verified 07/30/17 19:10) Past Medical History - Social History Smoking Status: Never Smoker Family History: Reviewed & Not Pertinent, CAD - 2 brothers with heart disease, Malignancy - Father mesothelioma - Past Medical History Cardiac Medical History: Reports: Hx Hypercholesterolemia, Hx Hypertension - ON MEDS Denies: Hx Coronary Artery Disease, Hx Heart Attack Pulmonary Medical History: Denies: Hx Asthma, Hx Bronchitis, Hx COPD, Hx Pneumonia Neurological Medical History: Reports: Hx Cerebrovascular Accident, Hx Seizures - 11/25/17 Endocrine Medical History: Reports: Hx Hypothyroidism. 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 Denies: Hx Ulcer Musculoskeletal Medical History: Reports Hx Arthritis - RIGHT HAND AND RIGHT KNEE Psychiatric Medical History: Reports: Hx Anxiety, Hx Dementia, Hx Depression Infectious Medical History: Reports: Hx Hepatitis - HEP B 73/REMISSION Past Surgical History: Reports: Hx Cholecystectomy. Denies: Hx Hysterectomy, Hx Mastectomy, Hx Open Heart Surgery, Hx Pacemaker - Immunizations Hx Diphtheria, Pertussis, Tetanus Vaccination: Yes Hx Pneumococcal Vaccination: 11/20/14 Physical Exam - Vital signs Vitals: Resp 27 H 01/14/18 17:30 Course - Re-evaluation Re-evalutation: Patient seen and examined vital signs reviewed. Laboratory data and imaging were ordered as appropriate for the patient's presenting symptoms and complaint, with consideration of any critical or life threatening conditions that may be associated with their obtained history and exam as noted above. Patient was treated with a total of 2-1/2 L of IV lactated Ringer's, after reviewing the patient's UA, she was started on IV Rocephin as well, blood cultures were obtained. Results were reviewed when available and demonstrated leukocytosis of 13.5, she was noted to have markedly elevated lactic acid of 4.5, as noted above patient was bolused with IV lactated Ringer's, repeat lactate did improve to normal, patient did have abnormal LFTs, specifically an elevated direct bilirubin of 1.2 , and total of 1.7, and elevated alk phos, compared to prior this was investigated with an ultrasound of the liver, which revealed multiple liver masses, and possible metastases, patient has no known source of cancer, according to the family after discussions with them. This was further pursued to be evaluated with CT imaging of the chest abdomen and pelvis, which again redemonstrated multiple liver lesions, described by the radiologist as somewhat necrotic center which potentially could be liver metastases versus multifocal abscesses. The patient was re-evaluated and was improved from a hemodynamic standpoint, her heart rate came down to the mid 70s, her blood pressure remained stable, currently 98/52, I discussed with the patient's as well as the patient' s daughter who agreed that the patient would want to be evaluated further, before they can make a decision about the lesions noted in her liver, specifically if there are metastases. Patient currently is unable to answer questions, she is altered. Did obtain an ammonia level, which was normal Evaluation was most consistent with severe sepsis, urinary tract infection, liver masses abscess versus metastases Results were discussed with the patient family and at this point after careful consideration I feel that that patient should be transferred to [facility] due to severe sepsis, UTI, multiple liver abscesses versus metastases, that will require further evaluation and management, and prognostication, that would benefit from being at a tertiary center, I discussed this case with Dr. wahl who is on-call with the hospitalist team and agreed to accept the patient. This was discussed with the patient family and that it is in the best interest for their care to be transferred, the risks and benefits of transfer were discussed, including but not limited to clinical deterioration during transport, respiratory distress, and potential for traumatic injuries. Patient family and agreed with this plan of care. *Note is created using voice recognition software and may contain spelling, syntax or grammatical errors. - Vital Signs Vital signs: Temp Pulse Resp BP Pulse Ox 97.1 F 17 109/58 L 98 01/14/18 21:27 01/14/18 21:27 01/14/18 21:27 01/14/18 21:27 - Laboratory Result Diagrams: 01/14/18 18:00 01/14/18 18:00 Laboratory results interpreted by me: 01/14/18 01/14/18 01/14/18 18:00 18:00 18:00 WBC 13.6 H Hgb 11.4 L Hct 35.7 L RDW 19.1 H Seg Neutrophils % 84.0 H Lymphocytes % 7.6 L Absolute Neutrophils 11.5 H PT 17.1 H Chloride 109 H BUN 31 H Est GFR (Non-Af Amer) 50 L Lactic Acid Total Bilirubin 1.7 H Direct Bilirubin 1.2 H AST 98 H Alkaline Phosphatase 164 H Ammonia Total Protein 5.2 L Albumin 2.3 L Lipase TSH Urine Protein Urine Bilirubin Urine Urobilinogen Ur Leukocyte Esterase Urine Ascorbic Acid 01/14/18 01/14/18 01/14/18 18:00 18:00 18:00 WBC Hgb Hct RDW Seg Neutrophils % Lymphocytes % Absolute Neutrophils PT Chloride BUN Est GFR (Non-Af Amer) Lactic Acid 4.5 H Total Bilirubin Direct Bilirubin AST Alkaline Phosphatase Ammonia Total Protein Albumin Lipase < 10.0 L TSH 7.68 H Urine Protein Urine Bilirubin Urine Urobilinogen Ur Leukocyte Esterase Urine Ascorbic Acid 01/14/18 01/14/18 18:18 20:20 WBC Hgb Hct RDW Seg Neutrophils % Lymphocytes % Absolute Neutrophils PT Chloride BUN Est GFR (Non-Af Amer) Lactic Acid Total Bilirubin Direct Bilirubin AST Alkaline Phosphatase Ammonia < 8.7 L Total Protein Albumin Lipase TSH Urine Protein 100 H Urine Bilirubin MODERATE H Urine Urobilinogen 4.0 H Ur Leukocyte Esterase TRACE H Urine Ascorbic Acid 20 H - EKG Interpretation by Me Additional EKG results interpreted by me: EKG demonstrates sinus tachycardia with a ventricular rate of 103 bpm, slight left axis deviation, QTC 466 ms, no evidence of acute ischemia on his EKG, this is compared with prior EKG from 01/13/2018, and at that time patient appeared to have atrial flutter, with 3-1 block. Critical Care Note - Critical Care Note Total time excluding time spent on procedures (mins): 75 Comments: Critical care time 75 minutes exclusive from separate billable procedures for a patient requiring complex medical decision making, and high potential for clinical deterioration. In a patient requiring IV fluid resuscitation, markedly elevated lactic acid, severe sepsis, and frequent re-evaluations discussed with family members, and transfer center as well as our in-house hospitalist. Time spent obtaining history from patient or surrogate, discussions with consultants, development of treatment plan with patient or surrogate, evaluation of patient's response to treatment, examination of patient , ordering and performing treatments and interventions, ordering and review of laboratory studies, re-evaluation of patient's condition, ordering and review of radiographic studies and review of old charts Discharge - Discharge Clinical Impression: Severe sepsis, Liver masses, Hyperbilirubinemia, Acute metabolic encephalopathy UTI (urinary tract infection) Qualifiers: Urinary tract infection type: site unspecified Hematuria presence: without hematuria Qualified Code(s): N39.0 - Urinary tract infection, site not specified Leukocytosis Qualifiers: Leukocytosis type: unspecified Qualified Code(s): D72.829 - Elevated white blood cell count, unspecified Condition: Serious Disposition: [facility] Referrals: ROLAND BANUELOS MD [Primary Care Provider] - Follow up as needed
[2018-01-14 18:32] LABS: APPEARANCE,URINE CLOUDY; BILIRUBIN,URINE MODERATE (NEGATIVE); COLOR,URINE AMBER; GLUCOSE, URINE NEGATIVE (NEGATIVE); KETONES,URINE NEGATIVE (NEGATIVE); LEUKOCYTE ESTERASE,URINE TRACE (NEGATIVE); NITRITE,URINE NEGATIVE (NEGATIVE); PROTEIN,URINE 100 mg/dL (NEGATIVE); URINE SPECIFIC GRAVITY 1.025
--- NOTE | 2018-01-14 18:42 | RADIOLOGY REPORT (SQ) ---
EXAM DESCRIPTION: CHEST SINGLE VIEW COMPLETED DATE/TIME: 01/14/2018 6:34 pm REASON FOR STUDY: tachycardia COMPARISON: 01/13/2018. EXAM PARAMETERS: NUMBER OF VIEWS: One view. TECHNIQUE: Single frontal radiographic view of the chest acquired. RADIATION DOSE: NA LIMITATIONS: None. FINDINGS: LUNGS AND PLEURA: No opacities, masses or pneumothorax. No pleural effusion. MEDIASTINUM AND HILAR STRUCTURES: No masses. Contour normal. HEART AND VASCULAR STRUCTURES: Heart normal in size. Normal vasculature. BONES: No acute findings. HARDWARE: None in the chest. OTHER: No other significant finding. IMPRESSION: NO ACUTE RADIOGRAPHIC FINDING IN THE CHEST. TECHNICAL DOCUMENTATION: JOB ID: [id number] [employer]- All Rights Reserved Reading location - IP/workstation name: [email or web address]
[2018-01-14 18:45] LABS: ALANINE AMINOTRANSFERASE 28 U/L (9-52); ALBUMIN 2.3 g/dL (3.5-5.0); ALKALINE PHOSPHATASE 164 U/L (38-126); ANION GAP 10 (5-19); ASPARTATE AMINO TRANSFERASE 98 U/L (14-36); BILIRUBIN,DIRECT 1.2 mg/dL (0.0-0.4); BILIRUBIN,TOTAL 1.7 mg/dL (0.2-1.3); BLOOD UREA NITROGEN 31 mg/dL (7-20); CALCIUM 8.8 mg/dL (8.4-10.2); CARBON DIOXIDE 23 mmol/L (22-30); CHLORIDE 109 mmol/L (98-107); GLUCOSE 109 mg/dL (75-110); POTASSIUM 4.3 mmol/L (3.6-5.0); TOTAL PROTEIN 5.2 g/dL (6.3-8.2)
[2018-01-14] MEDS ORDERED: CEFTRIAXONE INJ 1000 MG VIAL IV ONE (18:45)
[2018-01-14 19:14] LABS: VENOUS BLOOD PCO2 36.5 mmHg (35-63); VENOUS BLOOD PH 7.42 (7.30-7.42)
--- NOTE | 2018-01-14 19:33 | RADIOLOGY REPORT (SQ) ---
EXAM DESCRIPTION: CT HEAD WITHOUT COMPLETED DATE/TIME: 01/14/2018 7:14 pm REASON FOR STUDY: altered mental status COMPARISON: CT brain 01/13/2018, 11/25/2017 TECHNIQUE: Axial images acquired through the brain without intravenous contrast. Images reviewed wi th bone, brain and subdural windows. Images stored on PACS. All CT scanners at this facility use dose modulation, iterative reconstruction, and/or weight based d osing when appropriate to reduce radiation dose to as low as reasonably achievable (ALARA). [facility]: Dose Right [facility]: CareDose [facility]: Dose Right [facility]: Teradose 4D [facility]: Smart Oz [employer] RADIATION DOSE: CT Rad equipment meets quality standard of care and radiation dose reduction techniq ues were employed. CTDIvol: 48.8 mGy. DLP: 1030 mGy-cm.mGy. LIMITATIONS: None. FINDINGS: VENTRICLES: Prominent. CEREBRUM: No mass effect. No hemorrhage. No midline shift. Areas of low density in the white matte r most likely due to chronic micro-vascular ischemic change. Redemonstration of encephalomalacia at the left parieto-occipital temporal region, probably due to remote infarct. No evidence for acute te rritorial infarction. CEREBELLUM: No hemorrhage. No alteration of density. No evidence for acute infarction. EXTRAAXIAL SPACES: Age-related involutional change. No fluid collections. ORBITS AND GLOBE: Symmetrical contour of the globes. CALVARIUM: No depressed fracture. PARANASAL SINUSES: No air-fluid level. SOFT TISSUES: No hematoma. IMPRESSION: No acute intracranial hemorrhage or acute territorial infarct. Chronic changes of atrop hy and microvascular ischemia. Remote infarct at the left parieto-occipital temporal region. EVIDENCE OF ACUTE STROKE: NO. TECHNICAL DOCUMENTATION: JOB ID: [id number]-64 Quality ID # [id number]: Final reports with documentation of one or more dose reduction techniques (e.g., Au tomated exposure control, adjustment of the mA and/or kV according to patient size, use of iterative reconstruction technique) 2010 [employer]- All Rights Reserved Reading location - IP/workstation name: [email or web address]
[2018-01-14 21:12] LABS: FREE T4 (FREE THYROXINE) 1.24 ng/dL (0.78-2.19)
[2018-01-14 21:26] LABS: THYROID STIMULATING HORMONE 7.68 uIU/mL (0.47-4.68)
--- NOTE | 2018-01-14 21:43 | RADIOLOGY REPORT (SQ) ---
EXAM DESCRIPTION: US ABDOMEN LIMITED COMPLETED DATE/TME: 01/14/2018 19:59 CLINICAL HISTORY: 72 years, Female, elevated bilirubin, sepsis COMPARISON: EXAM DESCRIPTION: CLINICAL HISTORY: elevated bilirubin, sepsis COMPARISON: None. FINDINGS: The pancreas is not seen. Aorta measures 19 mm proximal, 13 mm mid, 11 mm distal diameter. Gallbladder is surgically absent. Bile duct measures 3 mm diameter. Right kidney measures 11.1 cm. Main portal vein is patent and flow within it is in the expected direction. Liver span is 14.8 cm. Multiple complex foci in the liver are present. The liver echotexture is diffusely markedly abnormal with multiple heterogeneous masses measuring up to 76 mm diameter, but essentially no normal hepatic parenchyma is seen. Findings are worrisome for widespread metastases. Inflammatory lesions are also possible. IMPRESSION: Markedly abnormal appearance of the liver. Detail is somewhat limited. Widespread metastases or inflammatory lesions are possible. Follow-up is recommended.
--- NOTE | 2018-01-14 22:45 | EKG REPORT ---
SEVERITY:- OTHERWISE NORMAL ECG - SINUS TACHYCARDIA : Confirmed by: Marilou Klein MD 14-Jan-2018 22:44:49
--- NOTE | 2018-01-14 23:19 | RADIOLOGY REPORT (SQ) ---
CT CHEST, ABDOMEN, AND PELVIS WITH IV CONTRAST HISTORY: Sepsis. Abnormal liver ultrasound. COMPARISON: Abdominal ultrasound from earlier the same day. TECHNIQUE: CT scan of the chest, abdomen, and pelvis with IV contrast. This exam was performed according to our departmental dose-optimization program, which includes automated exposure control, adjustment of the mA and/or kV according to patient size and/or use of iterative reconstruction technique. FINDINGS: CHEST: Thyroid gland is unremarkable. No mediastinal, hilar, or axillary adenopathy is seen. No consolidation, pleural effusion, or pneumothorax is identified. Scattered bilateral subsegmental atelectasis in the lower lobes, left greater than right. Thoracic aorta is normal caliber. No acute osseous findings. ABDOMEN/PELVIS: Liver is enlarged measuring almost 25 cm. There are innumerable enhancing lesions scattered throughout the liver, some of which have internal nonenhancement. The largest lesion is in the hepatic dome and measures approximately 11 x 9 x 9 cm. Status post cholecystectomy. Spleen and pancreas are grossly unremarkable. No adrenal masses are seen. Kidneys are symmetric without focal lesions. No obstructive uropathy. Garcia catheter in the bladder. Uterus is unremarkable. Small amount of free fluid in the pelvic cul-de-sac, likely physiologic. Moderate amount of stool within the rectum. No small bowel obstruction. Aorta is normal caliber. No acute osseous findings. IMPRESSION: 1. Enlarged liver containing multiple enhancing masses some of which appear centrally necrotic. Findings may represent metastatic disease versus multifocal abscesses. Correlate with clinical history. 2. Status post cholecystectomy. 3. Moderate amount of stool within the rectum. Correlate for constipation.
[2018-01-15] MEDS ORDERED: LEVOTHYROXINE SODIUM 0.112 MG TABLET PO ONE (10:16)
[2018-01-15] MEDS ORDERED: HALOPERIDOL 1 MG TABLET PO PRN (10:18)
[2018-01-15] MEDS ORDERED: HALOPERIDOL LACTATE INJ 5 MG/1 ML VIAL IM PRN (10:39)
[2018-01-15] MEDS: HALOPERIDOL LACTATE INJ 5 MG/1 ML VIAL IM PRN ×3 (11:06→23:45)
[2018-01-15] MEDS: MEMANTINE HCL 10 MG TABLET PO SCH ×2 (11:06→18:46)
[2018-01-15] MEDS: FERROUS SULFATE 325 MG TABLET PO SCH (11:06)
[2018-01-15] MEDS ORDERED: HALOPERIDOL LACTATE INJ 5 MG/1 ML VIAL IM ONE (12:21)
[2018-01-15] MEDS ORDERED: ACETAMINOPHEN 325 MG SUPP.RECT PR ONE (14:05)
[2018-01-15] MEDS ORDERED: RINGERS SOLUTION,LACTATED 1,000 ML IV ONE (14:06)
[2018-01-15 15:16] LABS: ABSOLUTE BASOPHILS # (AUTO) 0.1 10^3/uL (0.0-0.2); ABSOLUTE LYMPHOCYTES (AUTO) 1.6 10^3/uL (0.5-4.7); ABSOLUTE MONOCYTES (AUTO) 0.7 10^3/uL (0.1-1.4); BASOPHILS % (AUTO) 0.4 % (0-2); EOSINOPHILS % (AUTO) 0.1 % (0-6); HEMATOCRIT 36.3 % (36.0-47.0); HEMOGLOBIN 11.7 g/dL (12.0-15.5); LYMPHOCYTES % (AUTO) 12.7 % (13-45); MEAN CORPUSCULAR HEMOGLOBIN 28.5 pg (27.0-33.4); MEAN CORPUSCULAR HGB CONC 32.1 g/dL (32.0-36.0); MEAN CORPUSCULAR VOLUME 89 fl (80-97); PLATELET COUNT 217 10^3/uL (150-450); RED BLOOD COUNT 4.08 10^6/uL (3.72-5.28); RED CELL DISTRIBUTION WIDTH 19.1 % (11.5-14.0); SEGMENTED NEUTROPHILS % (AUTO) 80.8 % (42-78); TOTAL CELLS COUNTED % (AUTO) 100 %; WHITE BLOOD COUNT 12.3 10^3/uL (4.0-10.5)
[2018-01-15 15:32] LABS: ALANINE AMINOTRANSFERASE 37 U/L (9-52); ALBUMIN 2.3 g/dL (3.5-5.0); ALKALINE PHOSPHATASE 213 U/L (38-126); ANION GAP 9 (5-19); ASPARTATE AMINO TRANSFERASE 80 U/L (14-36); BILIRUBIN,TOTAL 1.3 mg/dL (0.2-1.3); BLOOD UREA NITROGEN 32 mg/dL (7-20); CALCIUM 9.3 mg/dL (8.4-10.2); CARBON DIOXIDE 24 mmol/L (22-30); CHLORIDE 110 mmol/L (98-107); GLUCOSE 74 mg/dL (75-110); LIPASE 15.9 U/L (23-300); POTASSIUM 4.2 mmol/L (3.6-5.0); SODIUM 142.5 mmol/L (137-145)
[2018-01-15] MEDS ORDERED: CEFTRIAXONE INJ 1000 MG VIAL IV ONE (16:40)
--- NOTE | 2018-01-15 17:12 | ER Document Report ---
ED General - General Chief Complaint: Altered Mental Status Stated Complaint: ALTERED MENTAL STATUS Time Seen by Provider: 01/14/18 17:32 TRAVEL OUTSIDE OF THE [place] IN LAST 30 DAYS: No - Related Data Allergies/Adverse Reactions: No Known Allergies Allergy (Verified 01/15/18 10:12) Past Medical History - Social History Smoking Status: Never Smoker Family History: Reviewed & Not Pertinent, CAD - 2 brothers with heart disease, Malignancy - Father mesothelioma Patient has suicidal ideation: No Patient has homicidal ideation: No - Past Medical History Cardiac Medical History: Reports: Hx Hypercholesterolemia, Hx Hypertension - ON MEDS Denies: Hx Coronary Artery Disease, Hx Heart Attack Pulmonary Medical History: Denies: Hx Asthma, Hx Bronchitis, Hx COPD, Hx Pneumonia Neurological Medical History: Reports: Hx Cerebrovascular Accident, Hx Seizures - 11/25/17 Endocrine Medical History: Reports: Hx Hypothyroidism. 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 Denies: Hx Ulcer Musculoskeletal Medical History: Reports Hx Arthritis - RIGHT HAND AND RIGHT KNEE Psychiatric Medical History: Reports: Hx Anxiety, Hx Dementia, Hx Depression Infectious Medical History: Reports: Hx Hepatitis - HEP B 73/REMISSION Past Surgical History: Reports: Hx Cholecystectomy. Denies: Hx Hysterectomy, Hx Mastectomy, Hx Open Heart Surgery, Hx Pacemaker - Immunizations Hx Diphtheria, Pertussis, Tetanus Vaccination: Yes Hx Pneumococcal Vaccination: 11/20/14 Physical Exam - Vital signs Vitals: Resp 27 H 01/14/18 17:30 Course - Vital Signs Vital signs: Temp Pulse Resp BP Pulse Ox 101.5 F H 22 H 103/55 L 98 01/15/18 14:01 01/15/18 16:01 01/15/18 16:01 01/15/18 16:01 - Laboratory Result Diagrams: 01/15/18 15:01 01/15/18 15:01 Laboratory results interpreted by me: 01/14/18 01/14/18 01/14/18 18:00 18:00 18:00 WBC 13.6 H Hgb 11.4 L Hct 35.7 L RDW 19.1 H Seg Neutrophils % 84.0 H Lymphocytes % 7.6 L Absolute Neutrophils 11.5 H PT 17.1 H Chloride 109 H BUN 31 H Est GFR (Non-Af Amer) 50 L Glucose Lactic Acid Total Bilirubin 1.7 H Direct Bilirubin 1.2 H AST 98 H Alkaline Phosphatase 164 H Ammonia Total Protein 5.2 L Albumin 2.3 L Lipase TSH Urine Protein Urine Bilirubin Urine Urobilinogen Ur Leukocyte Esterase Urine Ascorbic Acid 01/14/18 01/14/18 01/14/18 18:00 18:00 18:00 WBC Hgb Hct RDW Seg Neutrophils % Lymphocytes % Absolute Neutrophils PT Chloride BUN Est GFR (Non-Af Amer) Glucose Lactic Acid 4.5 H Total Bilirubin Direct Bilirubin AST Alkaline Phosphatase Ammonia Total Protein Albumin Lipase < 10.0 L TSH 7.68 H Urine Protein Urine Bilirubin Urine Urobilinogen Ur Leukocyte Esterase Urine Ascorbic Acid 01/14/18 01/14/18 01/15/18 18:18 20:20 15:01 WBC 12.3 H Hgb 11.7 L Hct RDW 19.1 H Seg Neutrophils % 80.8 H Lymphocytes % 12.7 L Absolute Neutrophils 10.0 H PT Chloride BUN Est GFR (Non-Af Amer) Glucose Lactic Acid Total Bilirubin Direct Bilirubin AST Alkaline Phosphatase Ammonia < 8.7 L Total Protein Albumin Lipase TSH Urine Protein 100 H Urine Bilirubin MODERATE H Urine Urobilinogen 4.0 H Ur Leukocyte Esterase TRACE H Urine Ascorbic Acid 20 H 01/15/18 15:01 WBC Hgb Hct RDW Seg Neutrophils % Lymphocytes % Absolute Neutrophils PT Chloride 110 H BUN 32 H Est GFR (Non-Af Amer) Glucose 74 L Lactic Acid Total Bilirubin Direct Bilirubin 1.0 H AST 80 H Alkaline Phosphatase 213 H Ammonia Total Protein 5.0 L Albumin 2.3 L Lipase 15.9 L TSH Urine Protein Urine Bilirubin Urine Urobilinogen Ur Leukocyte Esterase Urine Ascorbic Acid Discharge - Discharge Clinical Impression: Severe sepsis, Liver masses, Hyperbilirubinemia, Acute metabolic encephalopathy UTI (urinary tract infection) Qualifiers: Urinary tract infection type: site unspecified Hematuria presence: without hematuria Qualified Code(s): N39.0 - Urinary tract infection, site not specified Leukocytosis Qualifiers: Leukocytosis type: unspecified Qualified Code(s): D72.829 - Elevated white blood cell count, unspecified Condition: Serious Disposition: [facility] Referrals: ROLAND BANUELOS MD [Primary Care Provider] - Follow up as needed
--- NOTE | 2018-01-15 20:03 | ER Document Report ---
Doctor's Note Notes: 01/15/18 20:00 This 72-year-old female was accepted at [facility] yesterday evening for transport for concern of potential liver abscesses in addition to her urinary tract infection and sepsis. Today I obtained liver function tests, markers of infection and administered fluids this patient as well as a repeated dose of Rocephin. She appeared improved according to her though because of her labile mood I did dose her with Haldol. I spoke to him about the potential necessity of this patient's transport and what alternatives existed. Contacted on-call hospitalist Dr. Stewart who declined to admit this patient to [facility] for concern of lack of interventional radiology. The noted that he would be amenable to potentially considering transport to [facility]. As such have contacted on-call hospitalist at [facility] Dr. Davila who agrees that he would accept patient in transport for further investigation. Currently we will plan for scheduling repeated labs in the morning. We will schedule repeated dose of Rocephin. Urine culture has grown out E. coli. Patient is currently accepted at [facility] Patient is also currently accepted at [facility]. Upon transport other facility should be notified that patient is no longer on waiting list.
[2018-01-16] MEDS: HALOPERIDOL LACTATE INJ 5 MG/1 ML VIAL IM PRN ×2 (04:23→09:47)
[2018-01-16] MEDS: RINGERS SOLUTION,LACTATED 1,000 ML IV PRN ×2 (07:55→20:02)
[2018-01-16 08:17] LABS: ABSOLUTE LYMPHOCYTES (AUTO) 1.2 10^3/uL (0.5-4.7); ABSOLUTE MONOCYTES (AUTO) 0.8 10^3/uL (0.1-1.4); ABSOLUTE NEUT (AUTO) 6.6 10^3/uL (1.7-8.2); BASOPHILS % (AUTO) 0.3 % (0-2); EOSINOPHILS % (AUTO) 0.1 % (0-6); HEMATOCRIT 30.9 % (36.0-47.0); HEMOGLOBIN 10.3 g/dL (12.0-15.5); LYMPHOCYTES % (AUTO) 14.3 % (13-45); MEAN CORPUSCULAR HEMOGLOBIN 29.2 pg (27.0-33.4); MEAN CORPUSCULAR HGB CONC 33.4 g/dL (32.0-36.0); MEAN CORPUSCULAR VOLUME 88 fl (80-97); PLATELET COUNT 226 10^3/uL (150-450); RED BLOOD COUNT 3.53 10^6/uL (3.72-5.28); RED CELL DISTRIBUTION WIDTH 18.7 % (11.5-14.0); SEGMENTED NEUTROPHILS % (AUTO) 76.3 % (42-78); TOTAL CELLS COUNTED % (AUTO) 100 %; WHITE BLOOD COUNT 8.6 10^3/uL (4.0-10.5)
[2018-01-16 08:43] LABS: ALANINE AMINOTRANSFERASE 34 U/L (9-52); ALBUMIN 1.9 g/dL (3.5-5.0); ALKALINE PHOSPHATASE 200 U/L (38-126); ASPARTATE AMINO TRANSFERASE 68 U/L (14-36); BILIRUBIN,DIRECT 0.8 mg/dL (0.0-0.4); BILIRUBIN,TOTAL 1.3 mg/dL (0.2-1.3); BLOOD UREA NITROGEN 25 mg/dL (7-20); CALCIUM 8.6 mg/dL (8.4-10.2); GLUCOSE 70 mg/dL (75-110); POTASSIUM 4.2 mmol/L (3.6-5.0); TOTAL PROTEIN 4.4 g/dL (6.3-8.2)
[2018-01-16 08:48] LABS: CARBON DIOXIDE 27 mmol/L (22-30); CHLORIDE 110 mmol/L (98-107)
[2018-01-16 08:52] LABS: ANION GAP 4 (5-19)
[2018-01-16] MEDS: MEMANTINE HCL 10 MG TABLET PO SCH ×2 (09:52→20:26)
[2018-01-16] MEDS: FERROUS SULFATE 325 MG TABLET PO SCH (09:52)
[2018-01-16 11:29] LABS: APPEARANCE,URINE SLIGHTLY-CLOUDY; BILIRUBIN,URINE SMALL (NEGATIVE); GLUCOSE, URINE NEGATIVE (NEGATIVE); KETONES,URINE NEGATIVE (NEGATIVE); LEUKOCYTE ESTERASE,URINE SMALL (NEGATIVE); NITRITE,URINE NEGATIVE (NEGATIVE); PROTEIN,URINE NEGATIVE (NEGATIVE); URINE SPECIFIC GRAVITY 1.039
[2018-01-16 11:33] LABS: COLOR,URINE DARK YELLOW
--- NOTE | 2018-01-17 00:50 | ER Document Report ---
Doctor's Note Notes: 01/17/18 00:50 Patient resting comfortably on stretcher with stable vital signs, transport crew is in the department to take patient to tertiary care center for further evaluation and treatment, patient is stable at this time for transport
[2018-01-17 06:00] VITALS: BP 123/70
== END 2018-01-17 00:55 | disposition short-term general hospital (02) ==
LOC: ER 17:27
DX: A41.9 Sepsis, unspecified organism (principal); R65.20 Severe sepsis without septic shock; E80.6 Other disorders of bilirubin metabolism; R16.0 Hepatomegaly, not elsewhere classified; G93.41 Metabolic encephalopathy; N39.0 Urinary tract infection, site not specified; D72.829 Elevated white blood cell count, unspecified; R41.82 Altered mental status, unspecified; I10 Essential (primary) hypertension; Z79.899 Other long term (current) drug therapy
CPT/HCPCS: 93005; 99291; 99292; 96365; 36415; 87040; 87086; 84439; 82140; 83605 ×2; 83690; 84443; 85025; 85610; 87088; 80053; 81001; 87186; 82803; 71045; 76705; 70450; 71260; 74177; 93010; A9270 ×4; J1630 ×2; J0696 ×2; J7120 ×3; J3490